=== PATIENT | female | born 1960 | race Caucasian/White ===

== ENCOUNTER → 2016-11-18 | Outpatient (CLI) | payer BC ==
[~2016-11-18] MED LIST: ALBU17IN INH; CYMB60CA3 PO; FISH1000 PO; HYDR25T PO; IBUPOTC PO; LAMI200T3 PO; LEVO50TA5 PO; LIPI20TA PO; MULT1TAB10 PO; NORCOTAB PO; SING10TA32 PO; TIOT18INH INH; VALI5TAB PO; VALS1TAB46 PO; VITA-130 PO; VITA200038 PO; advair INH; allegra OR; flonase; proventil inhaler INH
== END ==
LOC: M ONCR 13:06
PROVIDERS: ATTEND Radiology Radiation Oncology
DX: C34.02 Malignant neoplasm of left main bronchus (principal); C79.31 Secondary malignant neoplasm of brain

== ENCOUNTER → 2016-11-23 | Outpatient (CLI) | payer BC ==
[~2016-11-23] VITALS: Ht 172.7 cm; Wt 86.2 kg
[~2016-11-23] MED LIST changes: +LIDOCAINE 2% INJ 100 MG/5 ML SDV (FOR ANES.) As Ordered ONE; +NS 1,000 ML IV SCH; +PROPOFOL 200 MG/20 ML VIAL As Ordered ONE; +fentaNYL 100 MCG/2 ML INJECTION (J3010) As Ordered ONE
--- NOTE | 2016-11-23 13:54 | ROOR ---
Patient Name: Akila Zhao Procedure Date: 11/23/2016 1:33 PM Date of : 1960 Age: 56 Room: [facility] Gender: Female Note Status: Finalized Procedure: Upper GI endoscopy + Biopsies Indications: Abdominal pain in the left lower quadrant, Weight loss Providers: Esvin Laughlin MD Referring MD: SILVINO CARTER NP Requesting Provider: Medicines: Monitored Anesthesia Care Complications: No immediate complications. Procedure: Pre-Anesthesia Assessment: - The heart rate, respiratory rate, oxygen saturations, blood pressure, adequacy of pulmonary ventilation, and response to care were monitored throughout the procedure. The Endoscope was introduced through the mouth, and advanced to the second part of duodenum. The upper GI endoscopy was accomplished without difficulty. The patient tolerated the procedure well. Findings: The Z-line was regular and was found 40 cm from the incisors. Diffuse mild mucosal changes characterized by an increased vascular pattern were found in the middle third of the esophagus. Localized mild inflammation characterized by congestion (edema) and erosions was found in the gastric antrum. Biopsies were taken with a cold forceps for Helicobacter pylori testing. The exam of the duodenum was otherwise normal. Impression: - Z-line regular, 40 cm from the incisors. - Increased vascular pattern mucosa in the esophagus. - Acute gastritis. Biopsied. - The examination was otherwise normal. Recommendation: - Patient has a contact number available for emergencies. The signs and symptoms of potential delayed complications were discussed with the patient. Return to normal activities tomorrow. Written discharge instructions were provided to the patient. - High fiber diet. - Discharge patient to home. - Continue present medications. - Await pathology results. - Telephone GI clinic for pathology results in 1 week. - Return to referring physician. - The findings and recommendations were discussed with the patient's family. Esvin Laughlin MD Esvin Laughlin MD 11/23/2016 1:54:11 PM This report has been signed electronically. Number of Addenda: 0 Note Initiated On: 11/23/2016 1:33 PM Estimated Blood Loss: Estimated blood loss: none.
--- NOTE | 2016-11-23 14:11 | ROOR ---
Patient Name: Akila Zhao Procedure Date: 11/23/2016 1:34 PM Date of : 1960 Age: 56 Room: [facility] Gender: Female Note Status: Finalized Procedure: Colonoscopy to Cecum Indications: Abdominal pain in the left lower quadrant, Weight loss Providers: Esvin Laughlin MD Referring MD: SILVINO CARTER NP Requesting Provider: Medicines: Monitored Anesthesia Care Complications: No immediate complications. Procedure: Pre-Anesthesia Assessment: - The heart rate, respiratory rate, oxygen saturations, blood pressure, adequacy of pulmonary ventilation, and response to care were monitored throughout the procedure. The Colonoscope was introduced through the anus and advanced to the cecum, identified by appendiceal orifice and ileocecal valve. The colonoscopy was performed without difficulty. The patient tolerated the procedure well. The quality of the bowel preparation was good. Findings: The perianal and digital rectal examinations were normal. Non-bleeding internal hemorrhoids were found during retroflexion. The hemorrhoids were small and Grade I (internal hemorrhoids that do not prolapse). No other significant abnormalities were identified in a careful examination of the remainder of the colon. The exam was otherwise without abnormality on direct and retroflexion views. Impression: - Non-bleeding internal hemorrhoids. - The examination was otherwise normal on direct and retroflexion views. - No specimens collected. - The exam was otherwise normal to the cecum. Recommendation: - Patient has a contact number available for emergencies. The signs and symptoms of potential delayed complications were discussed with the patient. Return to normal activities tomorrow. Written discharge instructions were provided to the patient. - High fiber diet. - Discharge patient to home. - Continue present medications. - Repeat colonoscopy in 10 years for screening purposes. - Return to referring physician. - The findings and recommendations were discussed with the patient's family. Esvin Laughlin MD Esvin Laguhlin MD 11/23/2016 2:11:48 PM This report has been signed electronically. Number of Addenda: 0 Note Initiated On: 11/23/2016 1:34 PM Estimated Blood Loss: Estimated blood loss: none.
[2016-11-23 14:40] VITALS: BP 148/81
== END | disposition home or self-care (01) ==
LOC: M OPP 12:52
PROVIDERS: ATTEND Internal Medicine Gastroenterology
DX: R63.4 Abnormal weight loss (principal); R10.32 Left lower quadrant pain; K64.0 First degree hemorrhoids; K29.00 Acute gastritis without bleeding; K22.8 Other specified diseases of esophagus; I10 Essential (primary) hypertension; E07.9 Disorder of thyroid, unspecified; J45.909 Unspecified asthma, uncomplicated; E78.00 Pure hypercholesterolemia, unspecified; R06.83 Snoring; F33.9 Major depressive disorder, recurrent, unspecified; F41.9 Anxiety disorder, unspecified; G47.30 Sleep apnea, unspecified; Z87.891 Personal history of nicotine dependence; Z79.899 Other long term (current) drug therapy; Z79.51 Long term (current) use of inhaled steroids; Z88.2 Allergy status to sulfonamides
CPT/HCPCS: 43239; 45378; 88305; J3010

== ENCOUNTER → 2016-12-12 | Outpatient (CLI) | payer BC ==
[~2016-12-12] MED LIST changes: -LIDOCAINE 2% INJ 100 MG/5 ML SDV (FOR ANES.) As Ordered ONE; -NS 1,000 ML IV SCH; -PROPOFOL 200 MG/20 ML VIAL As Ordered ONE; -fentaNYL 100 MCG/2 ML INJECTION (J3010) As Ordered ONE
--- NOTE | 2016-12-16 14:22 | SLEEPCENT ---
DATE OF PROCEDURE: 12/12/2016 ORDERED BY: Dr. Traylor Nocturnal polysomnography was performed for the titration of pressure therapy in this patient with obstructive sleep apnea syndrome confirmed by home testing revealing a respiratory event index of 22. For testing, the patient was fit with a ResMed Quattro full face mask of medium size and 8 cm of water pressure were applied to the circuit and the lights were extinguished. 8 hours and 29 minutes of data were reviewed. There were 392 minutes of sleep identified. Sleep latency was prolonged at 53 minutes. Rapid eye movement (REM) latency was normal at 90 minutes. Sleep architecture showed REM rebound. Some fragmentation persisted. Overall sleep efficiency was 77.8%. The patient's electrocardiogram (EKG) showed a sinus rhythm with an average heart rate of 74 beats per minute. Electroencephalogram (EEG) showed reasonably normal waveforms for awake and sleep. Respiratory events were fully palliated and best sleep seen at a CPAP pressure of +10. CPAP tolerance was reasonably good. Significant limb activity was noted. There were at least 3 trains of 30 events and limb movement arousal index was 13.5. IMPRESSION: 1. Obstructive sleep apnea syndrome (G47.33). 2. Periodic limb movement disorder (G47.61), limb movement arousal index of 13.5. RECOMMENDATION: Nightly use of pressure therapy at 10 cm of water should be sufficient to address the patient's respiratory events. Interventions to reduce the frequency of arousals from limb activity should further improve the quality of sleep.
== END ==
LOC: M SLEEP 20:30
PROVIDERS: ATTEND Internal Medicine Pulmonary Disease
DX: G47.33 Obstructive sleep apnea (adult) (pediatric) (principal); G47.61 Periodic limb movement disorder

== ENCOUNTER → 2017-03-26 | Outpatient (CLI) | payer BC ==
[~2017-03-26] MED LIST changes: +ALB2.5NEB INH; +ASPI1TAB PO; +ATOR1TAB19 PO; +DOXY100T PO
--- NOTE | 2017-03-26 14:52 | REP ---
Clinical: Acute bronchitis. Technique: PA and lateral. Comparison: 01/20/2016. Findings: Ill-defined mass-like density in the left hilar and suprahilar region with underlying air bronchograms is similar to prior examination. Postsurgical changes involving the left hemithorax appear relatively stable. [id number] identified with tip in the SVC. Right hemithorax demonstrates a relatively new area of opacification involving the right middle lobe and right lower lobe concerning for superimposed acute infiltrate with small pleural reaction. There is no evidence for pneumothorax. Musculoskeletal structures are stable. Impression: 1. Relatively chronic-appearing changes to the left hemithorax. 2. New area of a infiltrate involving the right middle lobe and right lower lobe with small associated pleural reaction. Signed by Gutierrez Jenkins MD 03/26/2017 02:43 P
== END ==
LOC: M ADAMS 14:18
PROVIDERS: ATTEND Physician Assistant Medical
DX: J20.9 Acute bronchitis, unspecified (principal)

== ENCOUNTER 2017-04-02 09:36 | Inpatient (IN) | payer BC ==
[2017-04-02] VITALS (20 sets, daily range): BP systolic 106–148; BP diastolic 36–100
[~2017-04-02] VITALS: Ht 172.7 cm; Wt 102.3 kg
[~2017-04-02 09:36] MED LIST changes: -ALB2.5NEB INH; -ASPI1TAB PO; -ATOR1TAB19 PO; -DOXY100T PO; +PANTOPRAZOLE 40MG TAB (PROTONIX) PO SCH
[2017-04-02] MEDS ORDERED: ASPI1TAB PO (09:48)
[2017-04-02] MEDS ORDERED: methylPREDNISolone INJ 125 MG/2 ML VIAL (J2930) IV ONE (10:15)
[2017-04-02] MEDS ORDERED: IPRATROPIUM 0.5MG/ALBUTEROL 2.5MG INH SOL UD 3ML (DUONEB)(J7620) NEB ONE (10:15)
[2017-04-02 10:45] LABS: BASO % 0.6 % (0.0-1.0); EOS # 0.2 K/mm3 (0.0-0.50); EOS % 2.8 % (0.0-3.0); LARGE UNSTAINED CELL # 0.2 K/mm3 (0.0-0.4); LARGE UNSTAINED CELL % 2.9 % (0.0-4.0); LYMPH # 1.2 K/mm3 (1.5-4.5); LYMPH % 11.6 % (24.0-44.0); MEAN CORPUSCULAR HEMOGLOBIN 33.1 pg (27.0-33.0); MEAN CORPUSCULAR HGB CONC 33.5 g/dl (32.0-36.5); MEAN CORPUSCULAR VOLUME 98.7 fl (80.0-96.0); MONO # 0.4 K/mm3 (0.0-0.8); MONO % 5.1 % (0.0-5.0); NEUTROPHILS # 6.2 K/mm3 (1.8-7.7); PLATELET COUNT, AUTOMATED 619 k/mm3 (150-450); WHITE BLOOD COUNT 8.1 K/mm3 (4.0-10.0)
[2017-04-02 11:10] LABS: ANION GAP 7 MEQ/L (8-16); BLOOD UREA NITROGEN 13 MG/DL (7-18); CALCIUM LEVEL 9.6 MG/DL (8.5-10.1); CARBON DIOXIDE LEVEL 29 MEQ/L (21-32); CHLORIDE LEVEL 104 MEQ/L (98-107); CREATININE FOR GFR 0.71 MG/DL (0.55-1.02); GLOMERULAR FILTRATION RATE > 60.0 (>51); GLUCOSE, FASTING 111 MG/DL (70-105); POTASSIUM SERUM 4.1 MEQ/L (3.5-5.1); SODIUM LEVEL 140 MEQ/L (136-145)
[2017-04-02] MEDS ORDERED: ISOVUE-370 76% 100ML VIAL (Q9967) As Ordered ONE (11:14)
--- NOTE | 2017-04-02 11:29 | REP ---
CHEST, TWO VIEWS: Two views of the chest are performed and compared to prior studies, most recently 03/26/2017. There is a new large right pneumothorax with partial collapse of the right lung. There is a small right effusion. There volume loss of the left lung with stable left perihilar opacities. The cardiomediastinal silhouette is unchanged. There is a left MediPort catheter with the tip in the superior vena cava. IMPRESSION: Large right pneumothorax. Signed by Arnold Mcguire MD 04/02/2017 01:40 P
[2017-04-02] MEDS ORDERED: ACETAMINOPHEN TAB 650MG DOSE (2X325MG) PO PRN (11:45)
[2017-04-02] MEDS ORDERED: PERCOCET 5MG/325MG TAB PO PRN ×2 (11:45)
[2017-04-02] MEDS ORDERED: LEVALBUTEROL 1.25 MG/0.5 ML CONCENTRATE NEB NEB PRN (11:45)
[2017-04-02] MEDS ORDERED: BISACODYL 10 MG SUPP PR PRN (11:45)
[2017-04-02] MEDS ORDERED: ONDANSETRON 4MG/2ML VIAL (J2405) IV PRN (11:45)
[2017-04-02] MEDS ORDERED: NORCO, ANEXSIA 5/325MG TABLET (HYDROcodone/ACETAMINOPHEN) PO PRN (11:45)
[2017-04-02] MEDS ORDERED: LIDOCAINE 1% MDV 20ML VIAL As Ordered ONE (11:56)
[2017-04-02] MEDS ORDERED: MIDAZOLAM INJ 2 MG/2 ML VIAL (J2250) As Ordered ONE ×2 (11:57→11:58)
[2017-04-02] MEDS ORDERED: FLUMAZENIL 0.5 MG/5 ML VIAL As Ordered ONE (11:57)
[2017-04-02] MEDS ORDERED: KCL 20MEQ IN D5/NS 1000ML 1,000 ML IV SCH ×2 (12:00→12:30)
[2017-04-02] MEDS ORDERED: MIDAZOLAM INJ 2 MG/2 ML VIAL (J2250) IV ONE ×2 (12:05→12:08)
--- NOTE | 2017-04-02 12:10 | REP ---
REASON: Dyspnea COMPARISON: Standard chest CT of 09/16/2016. There is a huge right-sided pneumothorax, which is under some tension and the trachea is seen shifted to the contralateral side when compared to the prior exam. There is good visualization of the pulmonary arterial vasculature and there are no focal filling defects present that would be considered consistent with pulmonary emboli. There is a minimal left pleural effusion, which does not appear to be significantly changed from the prior exam. There is no evidence of a pericardial effusion. The imaged upper abdomen and imaged osseous structures are unchanged. Evaluation of the lung david show compressive atelectatic changes in the right lung. There is a potential spiculated mass in the right apical region. This represents a change in the prior exam. Certainly, this is either accentuated by or caused by the compressive atelectatic change. Chronic left upper lobe changes are again seen with air bronchograms and a large opacity, status quo. IMPRESSION: 1. There is a large right-sided pneumothorax, which is under some tension as described above. A phone call was placed to Dr. Rafa De Leon and these findings were discussed. 2. Right lung changes as described above. This needs to be followed up once the lung has been re-expanded. 3. Chronic lung field changes as described above. 4. Other findings as described above. Signed by Luis Kan DO 04/02/2017 03:22 P
[2017-04-02] MEDS ORDERED: ATOR1TAB19 PO (12:34)
[2017-04-02] MEDS ORDERED: DOXY100T PO (12:34)
[2017-04-02] MEDS ORDERED: ALB2.5NEB INH (12:35)
[2017-04-02 13:07] LABS: ABG HCO3 21.8 MEQ/L (22.0-26.0); ABG PARTIAL PRESSURE CO2 31.5 mmHg (35.0-45.0); ABG PARTIAL PRESSURE O2 88.2 mmHg (75.0-100.0); ABG STANDARD HCO3 23.6 MEQ/L (22.0-26.0); ABG TOTAL CO2 22.8 MEQ/L (22.0-29.0); ABG pH (ARTERIAL) 7.459 UNITS (7.350-7.450)
[2017-04-02] MEDS: PANTOPRAZOLE 40MG INJ (PROTONIX) (C9113) IV SCH (13:30)
[2017-04-02] MEDS: KETOROLAC 30 MG/ML VIAL (J1885) IV SCH ×3 (13:30→23:37)
[2017-04-02] MEDS: MOM 30ML SUSPENSION UDC PO SCH (13:32)
--- NOTE | 2017-04-02 13:52 | REP ---
Status post chest tube placement. Comparison to earlier today. The right sided pneumothorax has been reduced by placement of a thoracotomy tube. Signed by Luis Kan DO 04/02/2017 03:23 P
[2017-04-02] MEDS: HEPARIN SOD (PORCINE) 5000 UNITS/ML VIAL SC SCH ×2 (14:15→21:35)
--- NOTE | 2017-04-02 19:11 | HPE ---
DATE OF ADMISSION: 04/02/2017 The patient is seen at the urgent request of the emergency room, Dr. De Leon for a pneumothorax. 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 She has undergone chemotherapy and had a port placed for the chemotherapy on the left side. She has completed the chemotherapy and was doing fairly well until last week when she felt a bit short of breath and sought attention at a local Urgent Care. The Urgent Care prescribed antibiotics and took a chest x-ray and saw an infiltrate. This morning she woke and she was very short of breath, to such an extent that became very scared. She therefore sought medical attention. She has had a cough with some yellow-green sputum production over the last week. There has been no fever, chills or sweats. She has lost weight from her chemotherapy. There has been no dysphagia. Prior to this morning, she did not have any chest pain. She just complains of a pressure type chest pain over her right chest. She went to the emergency room and a chest x-ray was undertaken where she was found to have a pneumothorax. She also underwent a CT scan looking for a pulmonary embolism. No pulmonary embolism was found. PAST MEDICAL HISTORY: Small cell carcinoma. Chronic obstructive pulmonary disease (COPD). Sleep apnea. Prior hyperthyroidism, no longer treated. Depression. Anxiety. Hyperlipidemia. PAST SURGICAL HISTORY: Thoracotomy for diagnosis of a hilar lymph node in 2014. Previous hysterectomy. MEDICATIONS AT HOME: - Cymbalta 60 mg every day - hydroxyzine 25 mg as needed itching - Lamictal 200 mg every day - atorvastatin 5 mg every day - Singulair 10 mg at bedtime - Spiriva 1 puff every day - diazepam 5 mg as needed anxiety - Ventolin 2 puffs every 4 hours as needed shortness of breath - vitamin D 2000 units every day - multivitamin every day - ascorbic acid 500 mg every day - aspirin 81 mg every day HABITS: Used to be a smoker, but quit in aug 2014. Does not drink. There is no illicit drugs. 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 There is no asbestos exposure. TRAVEL HISTORY: She has traveled to [place], to [place]. EXPOSURES: No dogs, cats or birds at home and no prior exposure to tuberculosis. FAMILY HISTORY: Not relevant to the acute situation. REVIEW OF SYSTEMS: Constitutional: See HPI. Eyes: Without diplopia, without prior jaundice, without amaurosis fugax. Nose: Without epistaxis. Mouth: Has her own teeth. Pulmonary: See HPI. Cardiac: Without prior history of myocardial infarctions. She had evidently abnormal EKG. She is followed by cardiology probably for her hyperlipidemia. No intermittent claudication. No anginal type chest pain. Gastrointestinal (GI): Has occasional nausea, no vomiting. No diarrhea, constipation, melena or hematochezia, abdominal pain or hematemesis. Genitourinary (): Without dysuria, hematuria or prior history of renal stones. Endocrine: Had prior hyperthyroidism, but the treatment was stopped during and after chemotherapy. No diabetes. Neurologic: Without paresthesias, paralysis or transient monocular blindness. Without prior seizures. Psychiatric: Has depression and anxiety. Without psychoses. Lymphatics: Without lumps, bumps in the neck, axilla or groin. Hematologic: Without prolonged bleeding times. PHYSICAL EXAMINATION: Well-developed, well-nourished white female in acute distress with shortness of breath. Vital signs: Temperature is 97.8, with a pulse of 98 in a sinus rhythm. Respiratory rate of 22 without the use of accessory muscles who is 90% saturated on 2 liters nasal cannula. She was in the low 80s upon presentation to the emergency room prior to oxygen therapy. Eyes: Pupils equal, round and reactive to light. Extraocular muscles intact. Sclera anicteric. Nose: Without deformity. Mouth: Shows her mucous membranes to be pink and moist. Lips and commissures are without lesions. There is no thrush. Teeth are in good repair. Neck is supple. There is no jugular venous distention, no subcutaneous emphysema. Trachea is midline. There is no thyromegaly, no lymphadenopathy. Lungs: Show decreased breath sounds on the right side. Percussion note is full to the diaphragm on either side. Cardiac examination: Without murmurs, clicks, gallops or rubs. I cannot feel her point of maximal impulse (PMI), S1 and S2 are normal. Abdomen: Soft and nontender. Bowel sounds are positive. There is no hepatomegaly. There is no costovertebral angle (CVA) tenderness. Extremities: Show no pretibial edema, no calf tenderness. No differential swelling of the upper extremities. Skin: Warm and dry, and perfused. Neuro: Shows II-XII intact. Gross motor and gross sensation intact. Gait is not tested. Psychiatric: Shows her to be awake, alert and oriented times three, with appropriate mood, affect, and conversational. Her white count is 8.1 with hemoglobin and hematocrit of 13.9 and 41.3, and a platelet count of 619. Differential shows 77% neutrophils, 11% lymphocytes, 5% monocytes. There are no immature forms or toxic granulations. Her electrolytes are normal with a BUN and creatinine of 13 and 0.71. Glucose of 111, calcium 9.6. Troponins less than 0.02 and her BNP is 118. Her chest x-ray shows a 50 to 60% pneumothorax on the right side. She has what looks to be an infiltrative pattern, most likely secondary to radiation in the left hilum. There is a midline shift to the left side. She is, however, rotated with unequal projection of her clavicles. There may be a mall air fluid level in the right costophrenic angle. The chest CT done for a pulmonary embolism does not show a pulmonary embolism. It confirms the pneumothorax. She has major emphysematous changes throughout both lungs. The left hilum looks to have a consolidation secondary to radiation changes. I do not see any other evidence of a pneumonia. Great vessels are intact and there is no pericardial effusion. She does have compression of the right middle lobe, probably secondary to the pneumothorax. She looks to have a left adrenal mass and also a right adrenal mass. It is unchanged from 09/[address] The liver is intact as is her spleen. IMPRESSION: 1. Acute pneumothorax right side. 2. COPD. 3. History of small cell carcinoma, treated with chemotherapy. 4. Bilateral adrenal masses and/or hypoplasia. 5. Sleep apnea. 6. Depression. 7. Hyperlipidemia. PLAN AND DISCUSSION: I will immediately place a chest tube to relieve her of her pneumothorax, and shortness of breath. I will monitor the chest tube to see if she has an air leak. Hopefully this is a one time event and will be able to remove the chest tube in the next one or two days. I will not continue to treat her for pneumonia as I do not think that she has got one.
[2017-04-02] MEDS: LEVALBUTEROL 1.25 MG/0.5 ML CONCENTRATE NEB NEB SCH (20:38)
[2017-04-02] MEDS: DOCUSATE SODIUM 100 MG CAP PO SCH (21:00)
[2017-04-02] MEDS: ATORVASTATIN 5MG PER 1/2 TABLET PO SCH (21:36)
[2017-04-02] MEDS: MONTELUKAST 10 MG TAB PO SCH (21:36)
[2017-04-02] MEDS: VITAMIN D 1,000 INTERNATIONAL UNITS TABLET PO SCH (21:36)
[2017-04-02] MEDS: lamoTRIgine 100MG TAB PO SCH (22:33)
[2017-04-03] MEDS: LEVALBUTEROL 1.25 MG/0.5 ML CONCENTRATE NEB NEB SCH ×4 (02:00→20:01)
[2017-04-03 04:00] VITALS: BP 111/66
[2017-04-03 05:41] LABS: BASO % 0.1 % (0.0-1.0); EOS % 0.3 % (0.0-3.0); LARGE UNSTAINED CELL # 0.2 K/mm3 (0.0-0.4); LARGE UNSTAINED CELL % 1.6 % (0.0-4.0); LYMPH # 1.2 K/mm3 (1.5-4.5); LYMPH % 7.5 % (24.0-44.0); MEAN CORPUSCULAR HEMOGLOBIN 32.2 pg (27.0-33.0); MEAN CORPUSCULAR HGB CONC 32.1 g/dl (32.0-36.5); MEAN CORPUSCULAR VOLUME 100.3 fl (80.0-96.0); MONO # 0.6 K/mm3 (0.0-0.8); MONO % 4.3 % (0.0-5.0); NEUTROPHILS # 11.6 K/mm3 (1.8-7.7); NEUTROPHILS % 86.2 % (36.0-66.0); PLATELET COUNT, AUTOMATED 608 k/mm3 (150-450); RED CELL DISTRIBUTION WIDTH 13.1 % (11.5-14.5); WHITE BLOOD COUNT 13.4 K/mm3 (4.0-10.0)
[2017-04-03 05:50] LABS: ABG BASE EXCESS 0.8 (-2.0-2.0); ABG HCO3 24.4 MEQ/L (22.0-26.0); ABG PARTIAL PRESSURE CO2 35.8 mmHg (35.0-45.0); ABG PARTIAL PRESSURE O2 78.8 mmHg (75.0-100.0); ABG STANDARD HCO3 25.1 MEQ/L (22.0-26.0); ABG TOTAL CO2 25.5 MEQ/L (22.0-29.0); ABG pH (ARTERIAL) 7.451 UNITS (7.350-7.450)
[2017-04-03 06:02] LABS: ANION GAP 7 MEQ/L (8-16); BLOOD UREA NITROGEN 18 MG/DL (7-18); CALCIUM LEVEL 8.9 MG/DL (8.5-10.1); CARBON DIOXIDE LEVEL 28 MEQ/L (21-32); CHLORIDE LEVEL 105 MEQ/L (98-107); CREATININE FOR GFR 0.73 MG/DL (0.55-1.02); GLOMERULAR FILTRATION RATE > 60.0 (>51); GLUCOSE, FASTING 103 MG/DL (70-105); POTASSIUM SERUM 4.1 MEQ/L (3.5-5.1); SODIUM LEVEL 140 MEQ/L (136-145)
[2017-04-03] MEDS: KETOROLAC 30 MG/ML VIAL (J1885) IV SCH ×4 (06:04→23:46)
--- NOTE | 2017-04-03 07:24 | ECGEPIP ---
Stationary ECG Study [facility] - ED Test Date: 2017-04-02 Pat Name: DIONE ARELLANO Department: Room: - Gender: F Cushion Stuffer: milagro : 1960 Requested By: ANJANA Gardner Order Number: [id number] Reading MD: Tiera Urias Measurements Intervals [place] Rate: 99 P: 91 MI: 188 QRS: 88 QRSD: 90 T: 91 QT: 346 QTc: 444 Interpretive Statements SINUS RHYTHM NSTTW ABNORMALITY INCREASED RATE 10/12/15 Electronically Signed On 04-03-2017 7:24:41 EDT by Tiera Urias
[2017-04-03 08:00] VITALS: BP 122/66
--- NOTE | 2017-04-03 08:32 | REP ---
PA and lateral chest: Comparisons are 04/02/2017 and 01/20/2016. The chest CT dated 04/02/2017. The right thoracotomy tube is unchanged from 04/02/2017. There is a small pneumothorax superolaterally in the right hemithorax. Immediately adjacent to this pneumothorax is a small focal parenchymal density, possibly atelectasis. The remainder of the right lung is clear. Left lung is clear except for a focal left paramediastinal parenchymal density which has been described as postradiation change on prior studies. A MediPort catheter is again noted entering from left with the tip in the right atrium in satisfactory location. Cardiac size is normal. Signed by Arnold Houser MD 04/03/2017 08:24 A
[2017-04-03] MEDS: MOM 30ML SUSPENSION UDC PO SCH (09:00)
[2017-04-03] MEDS: DOCUSATE SODIUM 100 MG CAP PO SCH ×2 (09:00→20:04)
[2017-04-03] MEDS: ASPIRIN 81 MG ENTERIC TAB PO SCH (09:35)
[2017-04-03] MEDS: MULTIVITAMINS/MINERALS THERAP 1 TAB PO SCH (09:35)
[2017-04-03] MEDS: ASCORBIC ACID 500 MG TAB PO SCH (09:35)
[2017-04-03] MEDS: DULoxetine 30 MG CAP (CYMBALTA) PO SCH (09:35)
--- NOTE | 2017-04-03 09:35 | REP ---
Follow-up CT of the chest without IV contrast: Comparison is a 04/02/2017. There is a thoracotomy tube in the apex of the right hemithorax as an interval change. The pneumothorax has significantly decreased, although a small persisting pneumothorax is present. There is a focal parenchymal density laterally in the apex of the right lung, nonspecific, follow-up is recommended. . There is focal atelectasis in the right middle lobe anteriorly. This is unchanged. There is a focal large density superomedially in the left upper lobe extending to the left hilus, unchanged. This is also unchanged from the prior study of 09/16/2016. This could represent chronic atelectasis, infiltrate, postradiation change, or neoplasm. No mediastinal adenopathy is identified. The study is insensitive for hilar adenopathy in the absence of IV contrast. The upper abdomen is not included on the current study. Impression: There is a right thoracotomy tube. The right pneumothorax has significantly decreased in size. There is a focal density in the right upper lobe, nonspecific, atelectasis versus scarring versus neoplasm. There is atelectasis in the right middle lobe adjacent to the pneumothorax. Follow-up to resolution is recommended. Large left upper lobe density as described, unchanged from the prior study. Signed by Arnold Houser MD 04/03/2017 09:26 A
[2017-04-03] MEDS: PANTOPRAZOLE 40MG INJ (PROTONIX) (C9113) IV SCH (09:36)
[2017-04-03] MEDS: HEPARIN SOD (PORCINE) 5000 UNITS/ML VIAL SC SCH ×2 (09:36→20:05)
[2017-04-03 12:00] VITALS: BP 120/50
--- NOTE | 2017-04-03 12:59 | IPN ---
DATE: 04/03/2017 Ms. Zhao has now developed a substantial air leak from her chest tube after relieving her pneumothorax yesterday. Her pain is being well controlled at the chest tube insertion site. She is breathing well and she is taking deep breaths without difficulty. She no longer has air hunger. Her vital signs show a maximum temperature (t-max) of 97.7 with a heart rate that ranges between 63 and 94 in a sinus rhythm, respiratory rate of 18 to 20 without the use of accessory muscles, who is 93 to 94% saturated on 2 liters nasal cannula, and whose blood pressure is ranging between 111/66 to 134/66. Her intake and output over the past 24 hours has been recorded as 2355 in and 660 out for a positivity of 1695 mL. So far today however, she is negative 780 mL. She has put 10 mL out of the chest tube. There is the above air leak. Weight today is 87 kg compared to 86.2 kg yesterday. PHYSICAL EXAMINATION: LUNGS: Her lungs show normal vesicular sounds on either side without wheezes, rhonchi or rales. Breath sounds are equal on either side. Percussion note is full to the diaphragm. CARDIAC EXAM: Without murmurs, clicks, gallops or rubs. She is in a sinus rhythm. I cannot feel her point of maximum impulse (PMI). S1, S2 are normal. ABDOMEN: Soft, nontender. Bowel sounds positive. There is no hepatomegaly. No costovertebral angle tenderness. EXTREMITIES: Show no pretibial edema. No calf tenderness. No differential swelling of the upper extremities. SKIN: Warm, dry and perfused without cyanosis or mottling, including that of the nail beds and knees. NECK: Supple. There is no jugular venous distention. No subcutaneous emphysema. Trachea is midline. MOUTH: Shows her mucous membranes to be pink and moist. Lips and commissures without lesions. There is no thrush. EYES: Show her pupils to be equal and reactive. Extraocular muscles intact. Sclerae anicteric. NEUROLOGIC: Shows II through XII intact with gross motor and gross sensation intact. Gait is not tested. PSYCHIATRIC: Shows her to be awake and alert, oriented times three with appropriate mood and affect and conversational. Her white count today is 13.4 with a hemoglobin and hematocrit of 12.4 and 38.7, respectively. Differential shows 86% neutrophils, 7% lymphocytes, 4% monocytes. There are no immature forms. No toxic granulations. Platelet count is 608. Her electrolytes are normal today with a BUN and creatinine of 18 and 0.73, calcium 8.9 and glucose of 103. Her blood gases today show a pH of 7.45, PCO2 of 35 and PO2 of 78 on 2 liters nasal cannula with a base excess of 0.8. Her chest x-ray shows her lung fully expanded to the chest wall. Costophrenic angles are sharp. There is no subcutaneous emphysema. The chest tube is in good place. The possible infiltrative process in the right lower lobe is clearing and I think that this was secondary to compression from her pneumothorax. I see no other infiltrates on the lateral film other than the radiation changes. IMPRESSION: 1. Acute pneumothorax on right side, resolved with a chest tube. 2. Chronic obstructive pulmonary disease (COPD). 3. History of small cell carcinoma, treated with chemotherapy. 4. Bilateral adrenal masses and/or hyperplasia. 5. Sleep apnea. 6. Depression. 7. Hyperlipidemia. PLAN AND DISCUSSION: She now has a fairly substantial air leak. I suspect that she has ruptured one of the blebs and/or bullae in her right lung. I am not sure if she is going to be able to seal those, but we will certainly give her three to five days to do so. If after that time we will have to consider going to the operating room. There is a national shortage of talc and there is no talc aerosol. That does present a problem. We have one talc slurry in the hospital. Review of her CT scan done on 04/02/2017 shows multiple emphysematous disease. I do see one possible area where she could have a ruptured bleb. Now that her lung is expanded, I will repeat the CT scan.
[2017-04-03] MEDS: TIOTROPIUM INHALER/CAPSULE (SPIRIVA) INH SCH (13:48)
--- NOTE | 2017-04-03 14:15 | RO ---
DATE OF PROCEDURE: 04/02/2017 PREPROCEDURE DIAGNOSIS: Right pneumothorax. POSTPROCEDURE DIAGNOSIS: Right pneumothorax. PROCEDURE: Insertion of right anterior chest tube. SURGEON: Regino Quispe MD FLAKE MILLER HELPER: ANESTHESIA: DESCRIPTION OF PROCEDURE: Under satisfactory moderate sedation achieved with 3 mg of Versed, patient was prepped and draped in the usual sterile fashion. Incision was made over second rib and a tunnel was created in the first intercostal space. A #20 chest tube was placed without difficulty and secured to the chest wall with #2 Tevdek suture. The chest tube was connected to a Pleur-evac. Patient tolerated the procedure well, and a chest x-ray is pending.
[2017-04-03 16:00] VITALS: BP 116/55
[2017-04-03 19:54] VITALS: BP 112/67
[2017-04-03] MEDS: lamoTRIgine 100MG TAB PO SCH (20:04)
[2017-04-03] MEDS: MONTELUKAST 10 MG TAB PO SCH (20:04)
[2017-04-03] MEDS: VITAMIN D 1,000 INTERNATIONAL UNITS TABLET PO SCH (20:04)
[2017-04-03] MEDS: ATORVASTATIN 5MG PER 1/2 TABLET PO SCH (20:04)
[2017-04-03 23:57] VITALS: BP 106/59
[2017-04-04] MEDS: LEVALBUTEROL 1.25 MG/0.5 ML CONCENTRATE NEB NEB SCH ×4 (01:00→19:30)
[2017-04-04 04:00] VITALS: BP 127/71
[2017-04-04 05:29] LABS: BASO # 0.1 K/mm3 (0.0-0.2); BASO % 0.6 % (0.0-1.0); EOS # 0.4 K/mm3 (0.0-0.50); EOS % 4.2 % (0.0-3.0); LARGE UNSTAINED CELL # 0.3 K/mm3 (0.0-0.4); LARGE UNSTAINED CELL % 3.1 % (0.0-4.0); LYMPH # 1.4 K/mm3 (1.5-4.5); LYMPH % 11.1 % (24.0-44.0); MEAN CORPUSCULAR HEMOGLOBIN 33.4 pg (27.0-33.0); MEAN CORPUSCULAR HGB CONC 33.1 g/dl (32.0-36.5); MEAN CORPUSCULAR VOLUME 100.9 fl (80.0-96.0); MONO # 0.5 K/mm3 (0.0-0.8); NEUTROPHILS # 7.6 K/mm3 (1.8-7.7); PLATELET COUNT, AUTOMATED 563 k/mm3 (150-450); RED CELL DISTRIBUTION WIDTH 13.2 % (11.5-14.5)
[2017-04-04 05:37] LABS: ANION GAP 7 MEQ/L (8-16); BLOOD UREA NITROGEN 19 MG/DL (7-18); CALCIUM LEVEL 8.7 MG/DL (8.5-10.1); CARBON DIOXIDE LEVEL 29 MEQ/L (21-32); CHLORIDE LEVEL 107 MEQ/L (98-107); CREATININE FOR GFR 0.77 MG/DL (0.55-1.02); GLOMERULAR FILTRATION RATE > 60.0 (>51); GLUCOSE, FASTING 88 MG/DL (70-105); SODIUM LEVEL 143 MEQ/L (136-145)
[2017-04-04] MEDS: KETOROLAC 30 MG/ML VIAL (J1885) IV SCH ×4 (06:30→23:34)
[2017-04-04 07:15] VITALS: BP 122/61
[2017-04-04] MEDS: ASCORBIC ACID 500 MG TAB PO SCH (08:54)
[2017-04-04] MEDS: ASPIRIN 81 MG ENTERIC TAB PO SCH (08:54)
[2017-04-04] MEDS: DULoxetine 30 MG CAP (CYMBALTA) PO SCH (08:54)
[2017-04-04] MEDS: MULTIVITAMINS/MINERALS THERAP 1 TAB PO SCH (08:54)
[2017-04-04] MEDS: DOCUSATE SODIUM 100 MG CAP PO SCH ×2 (08:54→20:32)
[2017-04-04] MEDS: HEPARIN SOD (PORCINE) 5000 UNITS/ML VIAL SC SCH ×2 (08:54→20:32)
[2017-04-04] MEDS: MOM 30ML SUSPENSION UDC PO SCH (08:54)
[2017-04-04] MEDS: PANTOPRAZOLE 40MG INJ (PROTONIX) (C9113) IV SCH (08:54)
--- NOTE | 2017-04-04 09:03 | REP ---
Chest PA and lateral views: There is a 04/03/2007. The right thoracotomy tube is unchanged. Small focal pneumothorax is again noted superolaterally in the right upper lobe with adjacent focal density in the right upper lobe parenchyma. These findings are unchanged. There is effacement right costophrenic angle. This is also unchanged. Also I suspect a pneumothorax inferolaterally on the right just above the right costophrenic angle, not definitely present on the prior study. There is a focal density medially in the left upper lobe. This is unchanged. MediPort catheter is again identified with the tip in the superior vena cava, unchanged. Left lung is otherwise clear. Signed by Arnold Houser MD 04/04/2017 08:55 A
[2017-04-04] MEDS ORDERED: LIDOCAINE 1% MDV 20ML VIAL As Ordered ONE (11:05)
[2017-04-04] MEDS: TIOTROPIUM INHALER/CAPSULE (SPIRIVA) INH SCH (11:22)
[2017-04-04 11:35] VITALS: BP 119/63
--- NOTE | 2017-04-04 13:06 | IPN ---
DATE: 04/04/2017 Ms. Zhao still has the rolling air leak. She is not complaining of shortness of breath and her pain at the chest tube insertion site is well controlled with oral analgesics. Her vital signs show a maximum temperature (Tmax) of 98.1 with a heart rate that ranges between 68-94 in a sinus rhythm, respiratory rate of 18-20 without the use of accessory muscles, who is 93-94% saturated on room air and show whose blood pressure is ranging between 106/59 to 122/61. Intake and output over the past 24 hours has been recorded as 2100 in and 2120 out for near equality. She has put 20 mL out of the chest tube. Weight today is 87.9 kg compared to 87 kg yesterday. On physical examination, her lungs show equal breath sounds on either side. Percussion note is full to the diaphragm. There is no subcutaneous emphysema over the chest wall. Cardiac exam is without murmurs, clicks, gallops or rubs. I cannot feel her point of maximum impulse (PMI). S1, S2 are normal. Abdomen is soft, nontender. Bowel sounds positive. There is no hepatomegaly, no costovertebral angle tenderness. Extremities show no pretibial edema, no calf tenderness. No differential swelling of the upper extremities. Skin is warm, dry and perfused without cyanosis or mottling, including that of the nail beds and knees. Neck is supple. There is no jugular venous distention, no subcutaneous emphysema. Trachea is midline. Mouth shows her mucous membranes to be pink and moist. Lips and commissures without lesions. There is no thrush. Eyes show her pupils to be equal and reactive. Extraocular muscles intact. Sclerae anicteric. Neuro shows II-XII intact along with gross motor and gross sensation intact. Gait is not tested. Psychiatric shows her to be awake and alert, oriented times three with appropriate mood and affect and conversational. Her chest x-ray today shows the lung from the chest wall inferiorly. Chest tube is in good place. I also see a clear space at the cupula. I do not see the chest tube well, but it is posterior on the lateral film. Her chest CT yesterday shows considerable air anteriorly. The chest tube is heading more posteriorly and superiorly. I do see emphysematous bleb, which may be the offender on the medial superior lung. IMPRESSION: 1. Spontaneous pneumothorax. 2. Severe chronic obstructive pulmonary disease (COPD). 3. Small cell carcinoma status post chemotherapy. 4. Bilateral adrenal masses and/or hyperplasia. 5. Sleep apnea. 6. Depression. 7. Hyperlipidemia. PLAN AND DISCUSSION: I have had a long discussion with Mrs. Zhao with her sister listening on the speaker phone. I am still trying to keep her out of the operating room. I am therefore going to reposition the chest tube and pull it back about 2.[address] the tube will become more anterior and will evacuate more air. I will also increase the suction on the chest tube. I explained to her that the worse case scenario is I will have to take her to the operating room to do a wedge resection of the emphysematous bleb, which is leaking. There is a national shortage of talc and there is no aerosolized talc to be had. We do have a talc that we can make into a slurry, although I do not think that is as effective as directly as spraying dry talc and creating the chemical pleurisy and subsequent scarring. I therefore repositioned her chest tube and pulled it back 2.5 cm.
[2017-04-04 16:00] VITALS: BP 121/57
[2017-04-04 20:00] VITALS: BP 116/55
[2017-04-04] MEDS: lamoTRIgine 100MG TAB PO SCH (20:31)
[2017-04-04] MEDS: MONTELUKAST 10 MG TAB PO SCH (20:32)
[2017-04-04] MEDS: ATORVASTATIN 5MG PER 1/2 TABLET PO SCH (20:32)
[2017-04-04] MEDS: VITAMIN D 1,000 INTERNATIONAL UNITS TABLET PO SCH (20:32)
[2017-04-05] VITALS (9 sets, daily range): BP systolic 118–139; BP diastolic 59–69; O2SAT 93–97
[2017-04-05] MEDS: LEVALBUTEROL 1.25 MG/0.5 ML CONCENTRATE NEB NEB SCH ×4 (02:06→20:10)
[2017-04-05] MEDS: KETOROLAC 30 MG/ML VIAL (J1885) IV SCH ×4 (05:00→23:16)
[2017-04-05 05:27] LABS: BASO # 0.1 K/mm3 (0.0-0.2); BASO % 0.7 % (0.0-1.0); EOS # 0.6 K/mm3 (0.0-0.50); EOS % 7.8 % (0.0-3.0); LARGE UNSTAINED CELL # 0.2 K/mm3 (0.0-0.4); LARGE UNSTAINED CELL % 2.6 % (0.0-4.0); LYMPH % 12.4 % (24.0-44.0); MEAN CORPUSCULAR HEMOGLOBIN 33.3 pg (27.0-33.0); MEAN CORPUSCULAR HGB CONC 33.4 g/dl (32.0-36.5); MEAN CORPUSCULAR VOLUME 99.9 fl (80.0-96.0); MONO # 0.4 K/mm3 (0.0-0.8); MONO % 5.1 % (0.0-5.0); NEUTROPHILS # 5.7 K/mm3 (1.8-7.7); NEUTROPHILS % 71.4 % (36.0-66.0); PLATELET COUNT, AUTOMATED 504 k/mm3 (150-450); RED CELL DISTRIBUTION WIDTH 13.1 % (11.5-14.5)
[2017-04-05 05:47] LABS: ANION GAP 6 MEQ/L (8-16); BLOOD UREA NITROGEN 14 MG/DL (7-18); CARBON DIOXIDE LEVEL 29 MEQ/L (21-32); CHLORIDE LEVEL 107 MEQ/L (98-107); CREATININE FOR GFR 0.68 MG/DL (0.55-1.02); GLOMERULAR FILTRATION RATE > 60.0 (>51); GLUCOSE, FASTING 86 MG/DL (70-105); POTASSIUM SERUM 4.2 MEQ/L (3.5-5.1); SODIUM LEVEL 142 MEQ/L (136-145)
[2017-04-05] MEDS: PANTOPRAZOLE 40MG INJ (PROTONIX) (C9113) IV SCH (09:00)
[2017-04-05] MEDS: MOM 30ML SUSPENSION UDC PO SCH (09:00)
[2017-04-05] MEDS: MULTIVITAMINS/MINERALS THERAP 1 TAB PO SCH (09:34)
[2017-04-05] MEDS: HEPARIN SOD (PORCINE) 5000 UNITS/ML VIAL SC SCH ×2 (09:34→21:02)
[2017-04-05] MEDS: ASCORBIC ACID 500 MG TAB PO SCH (09:34)
[2017-04-05] MEDS: DOCUSATE SODIUM 100 MG CAP PO SCH ×2 (09:34→21:02)
[2017-04-05] MEDS: DULoxetine 30 MG CAP (CYMBALTA) PO SCH (09:35)
[2017-04-05] MEDS: ASPIRIN 81 MG ENTERIC TAB PO SCH (09:35)
--- NOTE | 2017-04-05 09:57 | REP ---
CHEST X-RAY: Two views. HISTORY: Pneumothorax. Comparison study April 04, 2017. FINDINGS: A right apical chest tube remains in place. A very small residual right-sided pneumothorax is again seen essentially unchanged. EKG electrodes are seen. There is a left sided transvenous Iskfps-S-Upmh catheter with its tip in the expected location of the superior vena cava. Chronic fibrotic changes and volume loss and some mediastinal widening are noted on the left. IMPRESSION: Tiny right apical pneumothorax with right chest tube in place. Stable changes on the left. Signed by Yamil Rico MD 04/05/2017 12:58 P
[2017-04-05] MEDS: TIOTROPIUM INHALER/CAPSULE (SPIRIVA) INH SCH (13:43)
--- NOTE | 2017-04-05 13:56 | IPN ---
DATE OF SERVICE: 04/05/2017 Ms. Zhao is still leaking but only during exhalation today. She is not short of breath, and the pain is being well controlled at the chest tube insertion site. She is appearing comfortable and eating lunch as I see her this afternoon. Her vital signs show a maximum temperature (Tmax) of 97.4 with a heart rate that ranges between 66 and 82 in a sinus rhythm, respiratory rate that is constant at 18 who is 92% to 96% saturated on room air and whose blood pressure is ranging between 116/55 to 139/66. Her intake and output over the past 24 hours has been recorded as 1680 in and 3470 out, for a negativity of 1790 mL. She has had 20 mL out of the chest tube, and there is still an air leak during exhalation. She was previously on 40 cm of suction. On physical examination, her lungs show normal vesicular sounds. I hear no wheezes, rhonchi, or rales. Percussion note is full to the diaphragm. Cardiac examination is without murmurs, clicks, gallops, or rubs. I cannot feel her point of maximum impulse (PMI). S1 and S2 are normal. Abdomen is soft, nontender. Bowel sounds are positive. There is no hepatomegaly, no costovertebral angle (CVA) tenderness. Extremities show no pretibial edema, no calf tenderness. No differential swelling of the upper extremities. Skin is warm, dry, and perfused without cyanosis or mottling, including that of the nail beds and the knees. Neck is supple. There is no jugular venous distention, no subcutaneous emphysema. Trachea is midline. Mouth shows her mucous membranes to be pink and moist. Lips and commissures without lesions. There is no thrush. Eyes show her pupils to be equal and reactive. Extraocular muscles intact. Sclerae anicteric. Neurologic shows II-XII intact, along with gross motor and gross sensation intact. Gait is not tested. Psychiatric shows her to be awake and alert, oriented times three, with appropriate mood and affect and conversational. Her white count today is 8.0 with hemoglobin and hematocrit of 14.1 and 42.3, respectively, with a platelet count of 504. Differential shows 71% neutrophils, 12% lymphocytes, 5% monocytes. There are no immature forms and no toxic granulations. Electrolytes are normal with a BUN and creatinine of 14 and 0.68, glucose of 86, and a calcium of 9.0. Her chest x-ray shows the lung with a small separation at the cupula less than 1 mm. The inferior portion of the lung that was is now applied to the chest wall. I see no infiltrates on the right side, and she has deviation changes on the left side. Chest tube is in good position. IMPRESSION: 1. Spontaneous pneumothorax, right side. 2. Alveolar pleural fistula, continuing. 3. Severe chronic obstructive pulmonary disease (COPD). 4. Small cell carcinoma, status post chemotherapy, left side. 5. Bilateral adrenal masses and/or hyperplasia. 6. Sleep apnea. 7. Depression. 8. Hyperlipidemia. PLAN AND DISCUSSION: I will discontinue her suction today to see if the leak will close without suction. I have tried the high suction, and that has not worked. I do perceive the leak is a bit better, however, today, happening only during exhalation. I do think that she has a ruptured bleb and, in fact, I am very suspicious of one bleb that is above the surface of the pleura, which I can see both on the original CT when she had the large hemothorax and on the CT 2 days ago. I may need to eventually bring her to the operating room to do a wedge resection of blebs and some type of pleurodesis procedure.
[2017-04-05] MEDS ORDERED: SLF 3 ML SYR IV PRN (20:15)
[2017-04-05] MEDS: MONTELUKAST 10 MG TAB PO SCH (21:02)
[2017-04-05] MEDS: VITAMIN D 1,000 INTERNATIONAL UNITS TABLET PO SCH (21:02)
[2017-04-05] MEDS: lamoTRIgine 100MG TAB PO SCH (21:02)
[2017-04-05] MEDS: ATORVASTATIN 5MG PER 1/2 TABLET PO SCH (21:02)
[2017-04-05] MEDS: SLF 3 ML SYR IV SCH (21:03)
[2017-04-06] MEDS: LEVALBUTEROL 1.25 MG/0.5 ML CONCENTRATE NEB NEB SCH ×4 (02:00→20:29)
[2017-04-06 04:09] VITALS: BP 116/56
[2017-04-06] MEDS: KETOROLAC 30 MG/ML VIAL (J1885) IV SCH ×3 (05:39→18:50)
[2017-04-06] MEDS: SLF 3 ML SYR IV SCH ×3 (05:39→21:42)
[2017-04-06 06:22] LABS: BASO # 0.1 K/mm3 (0.0-0.2); BASO % 0.7 % (0.0-1.0); EOS # 0.7 K/mm3 (0.0-0.50); EOS % 8.8 % (0.0-3.0); LARGE UNSTAINED CELL # 0.2 K/mm3 (0.0-0.4); LARGE UNSTAINED CELL % 2.8 % (0.0-4.0); LYMPH # 1.2 K/mm3 (1.5-4.5); MEAN CORPUSCULAR HEMOGLOBIN 33.1 pg (27.0-33.0); MEAN CORPUSCULAR HGB CONC 32.6 g/dl (32.0-36.5); MEAN CORPUSCULAR VOLUME 101.6 fl (80.0-96.0); MONO # 0.5 K/mm3 (0.0-0.8); MONO % 6.3 % (0.0-5.0); NEUTROPHILS # 5.9 K/mm3 (1.8-7.7); NEUTROPHILS % 70.4 % (36.0-66.0); PLATELET COUNT, AUTOMATED 488 k/mm3 (150-450); RED CELL DISTRIBUTION WIDTH 13.3 % (11.5-14.5); WHITE BLOOD COUNT 8.4 K/mm3 (4.0-10.0)
[2017-04-06 06:40] LABS: ANION GAP 5 MEQ/L (8-16); BLOOD UREA NITROGEN 14 MG/DL (7-18); CARBON DIOXIDE LEVEL 27 MEQ/L (21-32); CHLORIDE LEVEL 107 MEQ/L (98-107); CREATININE FOR GFR 0.73 MG/DL (0.55-1.02); GLOMERULAR FILTRATION RATE > 60.0 (>51); GLUCOSE, FASTING 81 MG/DL (70-105); POTASSIUM SERUM 4.4 MEQ/L (3.5-5.1); SODIUM LEVEL 139 MEQ/L (136-145)
[2017-04-06 07:57] VITALS: BP 128/67
[2017-04-06] MEDS: MOM 30ML SUSPENSION UDC PO SCH (09:00)
[2017-04-06] MEDS: PANTOPRAZOLE 40MG TAB (PROTONIX) PO SCH (09:00)
[2017-04-06] MEDS: MULTIVITAMINS/MINERALS THERAP 1 TAB PO SCH (09:07)
[2017-04-06] MEDS: HEPARIN SOD (PORCINE) 5000 UNITS/ML VIAL SC SCH ×2 (09:07→21:41)
[2017-04-06] MEDS: DULoxetine 30 MG CAP (CYMBALTA) PO SCH (09:07)
[2017-04-06] MEDS: ASPIRIN 81 MG ENTERIC TAB PO SCH (09:07)
[2017-04-06] MEDS: DOCUSATE SODIUM 100 MG CAP PO SCH ×2 (09:08→21:38)
[2017-04-06] MEDS: ASCORBIC ACID 500 MG TAB PO SCH (09:08)
--- NOTE | 2017-04-06 10:27 | REP ---
CHEST X-RAY: Two views. HISTORY: Pneumothorax. Comparison study April 05, 2017. FINDINGS: Right pleural drainage catheter remains in place. The right-sided pneumothorax has increased since yesterday's chest x-ray and is visible laterally to the lung base where there is an air-fluid level in the pleural space and superiorly to the medial aspect of the apex. This is approximately 15%. There is some pleuroparenchymal opacity in the right mid lung zone. Chronic changes persist in the left hemithorax including volume loss with left hemidiaphragm elevation and perihilar fibrosis and increased density. There are clips in the left perihilar region and in the region of the thoracic inlet. The heart is not enlarged. There is an Oqyrmf-H-Irez catheter via the left side. IMPRESSION: Interval increase in the size of the right-sided pneumothorax. Now approximately 15%. Signed by Yamil Rico MD 04/06/2017 02:51 P
[2017-04-06 11:26] VITALS: BP 117/69
[2017-04-06] MEDS: TIOTROPIUM INHALER/CAPSULE (SPIRIVA) INH SCH (13:35)
[2017-04-06 15:38] VITALS: BP 115/67
[2017-04-06 20:36] VITALS: BP 125/73
[2017-04-06] MEDS: lamoTRIgine 100MG TAB PO SCH (21:39)
[2017-04-06] MEDS: MONTELUKAST 10 MG TAB PO SCH (21:39)
[2017-04-06] MEDS: VITAMIN D 1,000 INTERNATIONAL UNITS TABLET PO SCH (21:39)
[2017-04-06] MEDS: ATORVASTATIN 5MG PER 1/2 TABLET PO SCH (21:39)
--- NOTE | 2017-04-06 23:24 | IPN ---
DATE: 04/06/2017 Ms. Zhao has been off suction for 24 hours. When I first went in, I did not detect an air leak. With a forceful cough, there may be one bubble. Nonetheless her chest x-ray shows her lung having fallen away from the chest wall and has an approximate 20% pneumothorax. There is no subcutaneous emphysema, however. Her vital signs are stable with a T-max of 97.7 and a heart rate that ranges between 71 and 86 in a sinus rhythm. Blood pressure of 115/67 to 120.67 with a respiratory rate of 18 to 20 without the use of accessory muscles who is 93 to 100% saturated on room air. Her intake and output over the past 24 hours has been recorded as 2750 in and 5062 out for negativity of 2312 mL. She has put 12 mL out of the chest tube and the air leak is described as above. Weight today is 86.9 kg compared to 86 kg yesterday. She has put out 550 mL in urine and taken in 2750 in by mouth (p.o.) intake. She has not been given any Lasix and has spontaneously diuresed. On physical examination her lungs show normal vesicular sounds, but there are decreased breath sounds on the right side. Percussion note is full to the diaphragm. Cardiac exam is without murmurs, clicks, gallops or rubs. I cannot feel her point of maximal impulse (PMI). S1 and S2 are normal. Abdomen is soft and nontender. Bowel sounds are positive. There is no hepatomegaly. No costovertebral angle (CVA) tenderness. Extremities show no pretibial edema. No calf tenderness. No differential swelling of the upper extremities. Skin is warm, dry and perfused without cyanosis or mottling including that of the nail beds and the knees. Neck is supple. There is no jugular venous distention. No subcutaneous emphysema. Trachea is midline. Mouth shows her mucous membranes to be pink and moist. Lips and commissures without lesions. No thrush. Eyes show her pupils to be equal, reactive. Extraocular muscles intact. Sclera anicteric. Neuro shows II through XII intact. Gross motor and gross sensation intact. Gait is not tested. Psychiatric shows her to be awake, alert and oriented times three with appropriate mood, affect and conversational. Her white count today is 8.4 with hemoglobin and hematocrit of 13.2 and 40.5. Platelet count is 488 and differential shows 70% neutrophils, 11% lymphocytes, 60% monocytes. There are no immature forms or toxic granulations. Her chemistries today show normal electrolytes with BUN and creatinine of 14 and 0.73. Glucose of 81, and calcium 9.0. Her chest x-ray today is described as above. She has about a 20% pneumothorax with the majority of the pneumothorax at the cupula of the lung. There may be a small air fluid level at the costophrenic angle just blunting it. There is some separation at the lateral wall. I do not see an anterior separation on the lateral film. There are no infiltrates other than the radiation changes in the left upper lobe. IMPRESSION: 1. Spontaneous pneumothorax right side. 2. Alveolar pleural fistula. Hopefully resolving. 3. Chronic obstructive pulmonary disease. 4. Small cell carcinoma, status post chemotherapy and radiation. 5. Bilateral adrenal masses and/or hyperplasia. 6. Sleep apnea. 7. Depression. 8. Hyperlipidemia. PLAN AND DISCUSSION: I will place her back on 10 cm of suction. I am hoping that the air leak is going to stop. If I do need to take her to the operating room for a wedge resection and a pleurodesis, the operating room is ordering a talc insufflator and we have one vial of talc powder available.
[2017-04-07] VITALS (7 sets, daily range): BP systolic 107–125; BP diastolic 58–72
[2017-04-07] MEDS: KETOROLAC 30 MG/ML VIAL (J1885) IV SCH ×2 (01:01→06:00)
[2017-04-07] MEDS: LEVALBUTEROL 1.25 MG/0.5 ML CONCENTRATE NEB NEB SCH ×4 (02:00→20:38)
[2017-04-07 05:36] LABS: BASO % 0.6 % (0.0-1.0); EOS # 0.6 K/mm3 (0.0-0.50); EOS % 7.7 % (0.0-3.0); LARGE UNSTAINED CELL # 0.2 K/mm3 (0.0-0.4); LARGE UNSTAINED CELL % 2.4 % (0.0-4.0); LYMPH % 10.2 % (24.0-44.0); MEAN CORPUSCULAR HEMOGLOBIN 32.7 pg (27.0-33.0); MEAN CORPUSCULAR HGB CONC 32.5 g/dl (32.0-36.5); MEAN CORPUSCULAR VOLUME 100.7 fl (80.0-96.0); MONO # 0.5 K/mm3 (0.0-0.8); MONO % 5.7 % (0.0-5.0); NEUTROPHILS # 6.1 K/mm3 (1.8-7.7); NEUTROPHILS % 73.5 % (36.0-66.0); PLATELET COUNT, AUTOMATED 433 k/mm3 (150-450); RED CELL DISTRIBUTION WIDTH 13.5 % (11.5-14.5); WHITE BLOOD COUNT 8.3 K/mm3 (4.0-10.0)
[2017-04-07 05:59] LABS: ANION GAP 6 MEQ/L (8-16); BLOOD UREA NITROGEN 19 MG/DL (7-18); CALCIUM LEVEL 8.8 MG/DL (8.5-10.1); CARBON DIOXIDE LEVEL 28 MEQ/L (21-32); CHLORIDE LEVEL 107 MEQ/L (98-107); CREATININE FOR GFR 0.72 MG/DL (0.55-1.02); GLOMERULAR FILTRATION RATE > 60.0 (>51); GLUCOSE, FASTING 88 MG/DL (70-105); POTASSIUM SERUM 4.3 MEQ/L (3.5-5.1); SODIUM LEVEL 141 MEQ/L (136-145)
[2017-04-07] MEDS: SLF 3 ML SYR IV SCH ×3 (06:00→20:15)
[2017-04-07] MEDS: TIOTROPIUM INHALER/CAPSULE (SPIRIVA) INH SCH (08:14)
--- NOTE | 2017-04-07 08:17 | REP ---
Clinical: Follow up pneumothorax. Technique: PA and lateral. Comparison: 04/06/2017. Findings: Previously identified right pneumothorax is significantly improved with only small residual apical pneumothorax suggested. The right chest tube is in stable position. Underlying bilateral pleuroparenchymal changes including small right pleural effusion are essentially unchanged. [id number] again identified with tip in the SVC. Skeletal structures intact. Impression: 1. Very small residual right apical pneumothorax improved from prior examination. 2. Diffuse bilateral pleuroparenchymal changes similar to prior examination. Signed by Gutierrez Jenkins MD 04/07/2017 08:09 A
[2017-04-07] MEDS: DOCUSATE SODIUM 100 MG CAP PO SCH ×2 (08:23→20:13)
[2017-04-07] MEDS: MOM 30ML SUSPENSION UDC PO SCH (08:23)
[2017-04-07] MEDS: ASPIRIN 81 MG ENTERIC TAB PO SCH (08:23)
[2017-04-07] MEDS: DULoxetine 30 MG CAP (CYMBALTA) PO SCH (08:23)
[2017-04-07] MEDS: ASCORBIC ACID 500 MG TAB PO SCH (08:23)
[2017-04-07] MEDS: PANTOPRAZOLE 40MG TAB (PROTONIX) PO SCH (08:23)
[2017-04-07] MEDS: MULTIVITAMINS/MINERALS THERAP 1 TAB PO SCH (08:23)
[2017-04-07] MEDS: HEPARIN SOD (PORCINE) 5000 UNITS/ML VIAL SC SCH ×2 (08:24→20:14)
--- NOTE | 2017-04-07 14:46 | IPN ---
DATE: 04/07/2017 Ms. Zhao still has an air leak, even on 10 cm of suction. The lung is now again up to the chest wall. It has now been nearly a week and I do not think that this is going to change and she and I have discussed taking her down to undertake a wedge resection of her leaking bleb and a talc pleurodesis. See discussion below. Her vital signs show a maximum temperature (t-max) of 98.1 with a heart rate that ranges between 74 and 106 in a sinus rhythm, respiratory rate of 18 to 22 without the use of accessory muscles, who is 98 to 96% saturated on room air and whose blood pressure is running between 118/65 to 107/67. Her intake and output for the past 24 hours has been recorded as 2120 in and 2910 out for negativity of 790 mL. She has put 10 mL out of the chest tube and there is the above air leak. Weight today is 87.1 kg compared to 86.9 kg yesterday. PHYSICAL EXAMINATION LUNGS: Her lungs show equal breath sounds on either side. I hear no wheezes, rhonchi or rales. There are no rubs. Her percussion note is full to the diaphragm. CARDIAC EXAM: Without murmurs, clicks, gallops or rubs. I cannot feel her point of maximum impulse (PMI). S1, S2 are normal. ABDOMEN: Soft, nontender. Bowel sounds positive. There is no hepatomegaly. No costovertebral angle tenderness. EXTREMITIES: Show no pretibial edema. No calf tenderness. No differential swelling of the upper extremities. SKIN: Warm, dry and perfused without cyanosis or mottling, including that of the nail beds and knees. NECK: Supple. There is no jugular venous distention. No subcutaneous emphysema. Trachea is midline. MOUTH: Shows his mucous membranes to be pink and moist. Lips and commissures without lesions. There is no thrush. EYES: Show her pupils to be equal and reactive. Extraocular motion intact. Sclerae anicteric. NEUROLOGIC: Shows II through XII intact with gross motor and gross sensation intact. Gait is not tested. PSYCHIATRIC: Shows him to be awake and alert, oriented times three with appropriate mood and affect and conversational. Her white count today is 8.3 with hemoglobin and hematocrit of 12.7 and 39.3 and a platelet count of 433. Differential shows 73% neutrophils, 10% lymphocytes, 5% monocytes. There are no immature forms. No toxic granulations. Her chemistries show normal electrolytes with BUN and creatinine of 19 and 0.72. Glucose of 88 and calcium 8.8. Her chest x-ray again shows her lung full expanded to the chest wall. Costophrenic angles are sharp and there are no infiltrates other than the radiation changes in the left upper lobe. IMPRESSION: 1. Alveolar pleural fistula, continuing. 2. Spontaneous pneumothorax right side. 3. Chronic obstructive pulmonary disease. 4. Small cell carcinoma, status post chemotherapy and radiation. 5. Bilateral adrenal masses and/or hyperplasia. 6. Sleep apnea. 7. Depression. 8. Hyperlipidemia. PLAN AND DISCUSSION: As noted above, I will tentatively plan to take her to the operating room on Wednesday. Should the leak stop, we will certainly have to reconsider. I will monitor over the next 36 hours. I have explained to her the problem with talc and that I will be forced to use a talc slurry rather than the powdered talc, which certainly is not as good. This will depend upon the stapling procedure to eliminate the air leak. This is always problematic in that finding the leak is often times difficult, as fluid is placed into the chest and then displaced by the expanding lung. The CAT scan is very suggestive of a bleb, which is above the surface of the lung, which may be the offending pathology.
[2017-04-07] MEDS: diphenhydrAMINE 25 MG CAP PO PRN (18:24)
[2017-04-07] MEDS: MONTELUKAST 10 MG TAB PO SCH (20:14)
[2017-04-07] MEDS: ATORVASTATIN 5MG PER 1/2 TABLET PO SCH (20:14)
[2017-04-07] MEDS: VITAMIN D 1,000 INTERNATIONAL UNITS TABLET PO SCH (20:14)
[2017-04-07] MEDS: lamoTRIgine 100MG TAB PO SCH (20:14)
[2017-04-08] MEDS: LEVALBUTEROL 1.25 MG/0.5 ML CONCENTRATE NEB NEB SCH ×4 (01:10→20:22)
[2017-04-08 04:00] VITALS: BP 103/57
[2017-04-08 05:17] LABS: BASO # 0.1 K/mm3 (0.0-0.2); BASO % 0.9 % (0.0-1.0); EOS # 0.8 K/mm3 (0.0-0.50); EOS % 11.6 % (0.0-3.0); LARGE UNSTAINED CELL # 0.3 K/mm3 (0.0-0.4); LARGE UNSTAINED CELL % 3.7 % (0.0-4.0); LYMPH # 1.1 K/mm3 (1.5-4.5); LYMPH % 13.4 % (24.0-44.0); MEAN CORPUSCULAR HEMOGLOBIN 32.9 pg (27.0-33.0); MEAN CORPUSCULAR HGB CONC 32.9 g/dl (32.0-36.5); MEAN CORPUSCULAR VOLUME 100.1 fl (80.0-96.0); MONO # 0.5 K/mm3 (0.0-0.8); MONO % 6.8 % (0.0-5.0); NEUTROPHILS # 4.3 K/mm3 (1.8-7.7); NEUTROPHILS % 63.6 % (36.0-66.0); PLATELET COUNT, AUTOMATED 394 k/mm3 (150-450); RED CELL DISTRIBUTION WIDTH 13.4 % (11.5-14.5); WHITE BLOOD COUNT 6.7 K/mm3 (4.0-10.0)
[2017-04-08] MEDS: SLF 3 ML SYR IV SCH ×3 (05:32→21:05)
[2017-04-08 05:45] LABS: ANION GAP 7 MEQ/L (8-16); BLOOD UREA NITROGEN 16 MG/DL (7-18); CALCIUM LEVEL 8.4 MG/DL (8.5-10.1); CARBON DIOXIDE LEVEL 26 MEQ/L (21-32); CHLORIDE LEVEL 108 MEQ/L (98-107); CREATININE FOR GFR 0.76 MG/DL (0.55-1.02); GLOMERULAR FILTRATION RATE > 60.0 (>51); GLUCOSE, FASTING 86 MG/DL (70-105); POTASSIUM SERUM 4.3 MEQ/L (3.5-5.1); SODIUM LEVEL 141 MEQ/L (136-145)
[2017-04-08] MEDS: TIOTROPIUM INHALER/CAPSULE (SPIRIVA) INH SCH (07:06)
[2017-04-08 07:30] VITALS: BP 117/59
[2017-04-08] MEDS: MOM 30ML SUSPENSION UDC PO SCH (08:33)
[2017-04-08] MEDS: DOCUSATE SODIUM 100 MG CAP PO SCH ×2 (08:33→21:00)
[2017-04-08] MEDS: DULoxetine 30 MG CAP (CYMBALTA) PO SCH (08:33)
[2017-04-08] MEDS: ASPIRIN 81 MG ENTERIC TAB PO SCH (08:33)
[2017-04-08] MEDS: PANTOPRAZOLE 40MG TAB (PROTONIX) PO SCH (08:34)
[2017-04-08] MEDS: ASCORBIC ACID 500 MG TAB PO SCH (08:34)
[2017-04-08] MEDS: MULTIVITAMINS/MINERALS THERAP 1 TAB PO SCH (08:34)
[2017-04-08] MEDS: HEPARIN SOD (PORCINE) 5000 UNITS/ML VIAL SC SCH ×2 (08:34→21:00)
--- NOTE | 2017-04-08 09:37 | REP ---
CHEST X-RAY: Two views. HISTORY: Pneumothorax. Comparison study April 07, 2017. FINDINGS: A right chest tube remains in place. A small amount of right pleural air persists decreased in size from yesterday's radiograph. There is subcutaneous emphysema in the extrathoracic soft tissues. A left-sided [id number]-K-Hluz catheter and chronic changes in the left lung are again seen as before. No new infiltrate. IMPRESSION: Tiny right sided pneumothorax improved from the previous day's study. Right chest tube remains in place. Signed by Yamil Rico MD 04/08/2017 10:19 A
[2017-04-08 12:15] VITALS: BP 125/75
--- NOTE | 2017-04-08 13:36 | IPN ---
DATE OF SERVICE: 04/08/2017 Ms. Zhao still has an air leak with forceful cough. It has now been nearly a week, and we have decided that she will be going to the operating room tomorrow to undergo a wedge resection and stapling of her probable emphysematous bleb and a talc pleurodesis. Her vital signs show a maximum temperature (Tmax) of 98.7 with a heart rate that ranges between 85 and 105 in a sinus rhythm, respiratory rate of 16-20 without the use of accessory muscles, who is 97% saturated on room air and whose blood pressure is ranging between 112/59 to 103/57. Her intake and output over the past 24 hours has been recorded as 1440 in and 3316 out for negativity of 180 mL. Her weight today is 86.5 kg today compared to 87.1 kg yesterday. On physical examination, she has equal breath sounds on either side. I hear no wheezes, rhonchi, or rales. There is no subcutaneous emphysema. Percussion note is full to the diaphragm. CARDIAC EXAMINATION: Is without murmurs, clicks, gallops, or rubs. I cannot feel her point of maximum impulse (PMI). S1 and S2 are normal. ABDOMEN: Soft, nontender. Bowel sounds are positive. There is no hepatomegaly. No costovertebral angle (CVA) tenderness. EXTREMITIES: Show no pretibial edema. No calf tenderness. No differential swelling of the upper extremities. SKIN: Is warm, dry, and perfused without cyanosis or mottling, including that of the nail beds and the knees. NECK: Is supple. There is no jugular venous distention. No subcutaneous emphysema. Trachea is midline. MOUTH: Shows her mucous membranes to be pink and moist. Lips and commissures without lesions. There is no thrush. EYES: Show her pupils to be equal and reactive. Extraocular motion intact. Sclerae anicteric. NEUROLOGIC: Shows II-XII intact, along with gross motor and gross sensation intact. Gait is not tested. PSYCHIATRIC: Shows her to be awake and alert, oriented times three with appropriate mood and affect and conversational. Her white count today is 6.7 with hemoglobin and hematocrit of 13 and 39.7, respectively, unchanged from yesterday, with a platelet count of 394 and stable. Differential shows 66% neutrophils, 30% lymphocytes, 6% monocytes. There are no immature forms. No toxic granulations. Her chemistries show normal electrolytes with BUN and creatinine of 16 and 0.76. Glucose of 86 and a calcium of 8.4. Her chest x-ray today shows her lung fully expanded to the chest wall. There are no infiltrates, and costophrenic angles are sharp. IMPRESSION: 1. Alveolar pleural fistula, continuing. 2. Spontaneous pneumothorax, right side. 3. Chronic obstructive pulmonary disease (COPD). 4. Small cell carcinoma, status post chemotherapy and radiation. 5. Bilateral adrenal masses and/or hyperplasia. 6. Sleep apnea. 7. Depression. 8. Hyperlipidemia. PLAN AND DISCUSSION: As noted in the introduction to the note and yesterday, I will take her to the operating room tomorrow. I will check to see if she is leaking tomorrow morning. There is still a chance that I could call off the surgery if she stops leaking. The problems with the talc were discussed yesterday.
[2017-04-08 15:30] VITALS: BP 115/65
[2017-04-08 20:00] VITALS: BP 128/59
[2017-04-08] MEDS: ATORVASTATIN 5MG PER 1/2 TABLET PO SCH (21:03)
[2017-04-08] MEDS: lamoTRIgine 100MG TAB PO SCH (21:03)
[2017-04-08] MEDS: MONTELUKAST 10 MG TAB PO SCH (21:04)
[2017-04-08] MEDS: VITAMIN D 1,000 INTERNATIONAL UNITS TABLET PO SCH (21:04)
[2017-04-08] MEDS: diphenhydrAMINE 25 MG CAP PO PRN (21:07)
[2017-04-09] VITALS (9 sets, daily range): BP systolic 65–142; BP diastolic 58–72
[2017-04-09] MEDS: LEVALBUTEROL 1.25 MG/0.5 ML CONCENTRATE NEB NEB SCH ×5 (01:10→23:48)
[2017-04-09] MEDS: SLF 3 ML SYR IV SCH ×3 (04:52→21:24)
[2017-04-09 05:10] LABS: BASO % 0.6 % (0.0-1.0); EOS % 14.7 % (0.0-3.0); LARGE UNSTAINED CELL # 0.3 K/mm3 (0.0-0.4); LYMPH # 1.2 K/mm3 (1.5-4.5); LYMPH % 13.3 % (24.0-44.0); MEAN CORPUSCULAR HEMOGLOBIN 33.2 pg (27.0-33.0); MEAN CORPUSCULAR VOLUME 100.4 fl (80.0-96.0); MONO # 0.4 K/mm3 (0.0-0.8); MONO % 6.4 % (0.0-5.0); NEUTROPHILS # 4.2 K/mm3 (1.8-7.7); PLATELET COUNT, AUTOMATED 366 k/mm3 (150-450); RED CELL DISTRIBUTION WIDTH 13.5 % (11.5-14.5); WHITE BLOOD COUNT 6.9 K/mm3 (4.0-10.0)
[2017-04-09 05:28] LABS: ANION GAP 4 MEQ/L (8-16); BLOOD UREA NITROGEN 17 MG/DL (7-18); CALCIUM LEVEL 8.6 MG/DL (8.5-10.1); CARBON DIOXIDE LEVEL 28 MEQ/L (21-32); CHLORIDE LEVEL 108 MEQ/L (98-107); CREATININE FOR GFR 0.75 MG/DL (0.55-1.02); GLOMERULAR FILTRATION RATE > 60.0 (>51); GLUCOSE, FASTING 89 MG/DL (70-105); POTASSIUM SERUM 4.2 MEQ/L (3.5-5.1); SODIUM LEVEL 140 MEQ/L (136-145)
--- NOTE | 2017-04-09 06:40 | REP ---
Clinical: Follow up pneumothorax. Technique: PA and lateral. Comparison: 04/08/2017. Findings: Right apical chest tube is in stable position. No significant residual pneumothorax is appreciated. Bilateral pleuroparenchymal changes including ill-defined opacities involving the mediastinum are unchanged. No new acute process identified. Impression: No significant residual pneumothorax. Stable diffuse bilateral and mediastinal pleuroparenchymal changes. Signed by Gutierrez Jenkins MD 04/09/2017 06:32 A
[2017-04-09] MEDS ORDERED: STERILE TALC 5 GM XX ONE (07:00)
[2017-04-09] MEDS ORDERED: BUPIVACAINE LIPOSOME/PF 1.3% 20 ML VIAL (13.3MG/ML)(EXPAREL) As Ordered ONE (07:11)
[2017-04-09] MEDS ORDERED: BUPIVACAINE HCL 0.25% 30 ML VIAL As Ordered ONE ×2 (07:11→09:10)
[2017-04-09] MEDS ORDERED: BUPIVACAINE HCL 0.5% 30 ML VIAL As Ordered ONE (07:11)
[2017-04-09] MEDS ORDERED: MIDAZOLAM INJ 2 MG/2 ML VIAL (J2250) As Ordered ONE ×3 (07:13→09:31)
[2017-04-09] MEDS ORDERED: fentaNYL 100 MCG/2 ML INJECTION (J3010) As Ordered ONE (07:13)
[2017-04-09] MEDS: MIDAZOLAM INJ 2 MG/2 ML VIAL (J2250) IV SCH ×2 (07:23→07:24)
[2017-04-09] MEDS: fentaNYL 100 MCG/2 ML INJECTION (J3010) IV SCH ×2 (07:23→07:25)
[2017-04-09] MEDS ORDERED: BUPIVACAINE HCL 0.5% 10 ML VIAL As Ordered ONE (07:38)
[2017-04-09] MEDS ORDERED: ceFAZolin 1GM INJ (J0690) As Ordered ONE (07:41)
[2017-04-09] MEDS ORDERED: MUPIROCIN 2% OINT 22 GM TUBE As Ordered ONE (07:43)
[2017-04-09] MEDS: DOCUSATE SODIUM 100 MG CAP PO SCH ×2 (09:00→21:23)
[2017-04-09] MEDS: HEPARIN SOD (PORCINE) 5000 UNITS/ML VIAL SC SCH ×2 (09:00→21:23)
[2017-04-09] MEDS: MOM 30ML SUSPENSION UDC PO SCH (09:00)
[2017-04-09] MEDS: PANTOPRAZOLE 40MG TAB (PROTONIX) PO SCH (09:00)
[2017-04-09] MEDS: TIOTROPIUM INHALER/CAPSULE (SPIRIVA) INH SCH (09:00)
[2017-04-09] MEDS ORDERED: fentaNYL 250 MCG/5 ML INJECTION (J3010) As Ordered ONE (09:08)
[2017-04-09] MEDS ORDERED: DESFLURANE 240 ML INHALANT As Ordered ONE (09:08)
[2017-04-09] MEDS ORDERED: PROPOFOL 200 MG/20 ML VIAL As Ordered ONE (09:09)
[2017-04-09] MEDS ORDERED: ROCURONIUM BROMIDE 50 MG/5 ML VIAL As Ordered ONE (09:09)
[2017-04-09] MEDS ORDERED: ONDANSETRON 4MG/2ML VIAL (J2405) As Ordered ONE (09:10)
[2017-04-09] MEDS ORDERED: LIDOCAINE 2% INJ 100 MG/5 ML SDV (FOR ANES.) As Ordered ONE (09:10)
[2017-04-09] MEDS ORDERED: GLYCOPYRROLATE INJ 0.2 MG/ML 2 ML VIAL As Ordered ONE (09:10)
[2017-04-09] MEDS ORDERED: NEOSTIGMINE 1MG/ML 5 ML SYRINGE (J2710) As Ordered ONE (09:10)
[2017-04-09] MEDS ORDERED: NALOXONE INJ 0.4 MG/1 ML VIAL (J2310) IV PRN (09:30)
[2017-04-09] MEDS ORDERED: METOCLOPRAMIDE INJ 10MG/2ML VIAL (J2765) IV PRN ×2 (09:30→11:30)
[2017-04-09] MEDS ORDERED: ONDANSETRON 4MG/2ML VIAL (J2405) IV PRN ×2 (09:30→11:30)
[2017-04-09] MEDS ORDERED: EPIDURAL/PCA KEYS XX PRN (09:30)
[2017-04-09] MEDS ORDERED: diphenhydrAMINE INJ 50MG/ML VIAL (J1200) IV PRN (09:30)
[2017-04-09] MEDS ORDERED: WALLBOXKEY XX PRN (09:30)
[2017-04-09] MEDS ORDERED: FENTANYL 2MCG/ML BUPIVACAINE 0.0625% NACL 250ML IV BAG As Ordered ONE (10:29)
[2017-04-09] MEDS: FENTANYL/BUPIVACAINE/NACL BAG 250 ML EPIDURAL SCH (10:45)
[2017-04-09] MEDS: KETOROLAC 30 MG/ML VIAL (J1885) IV SCH ×3 (11:00→23:02)
[2017-04-09] MEDS: KCL 20MEQ IN D5/NS 1000ML 1,000 ML IV SCH (11:00)
[2017-04-09 11:09] LABS: ABG BASE EXCESS -1.8 (-2.0-2.0); ABG HCO3 26.1 MEQ/L (22.0-26.0); ABG PARTIAL PRESSURE CO2 57.9 mmHg (35.0-45.0); ABG PARTIAL PRESSURE O2 91.7 mmHg (75.0-100.0); ABG STANDARD HCO3 22.9 MEQ/L (22.0-26.0); ABG TOTAL CO2 27.8 MEQ/L (22.0-29.0); ABG pH (ARTERIAL) 7.271 UNITS (7.350-7.450)
[2017-04-09 11:15] LABS: BASO # 0.1 K/mm3 (0.0-0.2); BASO % 0.7 % (0.0-1.0); EOS # 0.9 K/mm3 (0.0-0.50); EOS % 11.3 % (0.0-3.0); LARGE UNSTAINED CELL # 0.2 K/mm3 (0.0-0.4); LARGE UNSTAINED CELL % 2.2 % (0.0-4.0); LYMPH # 0.7 K/mm3 (1.5-4.5); LYMPH % 8.6 % (24.0-44.0); MEAN CORPUSCULAR HEMOGLOBIN 32.5 pg (27.0-33.0); MEAN CORPUSCULAR HGB CONC 31.7 g/dl (32.0-36.5); MEAN CORPUSCULAR VOLUME 102.7 fl (80.0-96.0); MONO # 0.5 K/mm3 (0.0-0.8); MONO % 6.1 % (0.0-5.0); NEUTROPHILS # 5.8 K/mm3 (1.8-7.7); NEUTROPHILS % 71.1 % (36.0-66.0); PLATELET COUNT, AUTOMATED 385 k/mm3 (150-450); RED CELL DISTRIBUTION WIDTH 13.2 % (11.5-14.5); WHITE BLOOD COUNT 8.2 K/mm3 (4.0-10.0)
[2017-04-09] MEDS ORDERED: PERCOCET 5MG/325MG TAB PO PRN (11:30)
[2017-04-09] MEDS ORDERED: fentaNYL 100 MCG/2 ML INJECTION (J3010) IV PRN (11:30)
[2017-04-09] MEDS ORDERED: LR 1,000 ML IV SCH (11:30)
[2017-04-09 11:37] LABS: ANION GAP 4 MEQ/L (8-16); BLOOD UREA NITROGEN 18 MG/DL (7-18); CALCIUM LEVEL 8.9 MG/DL (8.5-10.1); CARBON DIOXIDE LEVEL 28 MEQ/L (21-32); CHLORIDE LEVEL 108 MEQ/L (98-107); CREATININE FOR GFR 0.75 MG/DL (0.55-1.02); GLOMERULAR FILTRATION RATE > 60.0 (>51); GLUCOSE, FASTING 99 MG/DL (70-105); POTASSIUM SERUM 4.9 MEQ/L (3.5-5.1); SODIUM LEVEL 140 MEQ/L (136-145)
--- NOTE | 2017-04-09 11:46 | REP ---
PORTABLE CHEST: AP portable view of the chest is performed and compared to a prior study of 04/09/2017 at 6:22 a.m. The current study is performed at 10:50 a.m. There are now two chest tubes on the right. I do not see a definite pneumothorax. Scattered mild interstitial opacities on the right lung are stable. Left hilar opacities are stable. The cardiomediastinal silhouette is unchanged. Left central venous catheter is again noted. IMPRESSION: Two right chest tubes are now seen. The study is otherwise stable. Signed by Arnold Mcguire MD 04/09/2017 04:51 P
[2017-04-09 12:11] LABS: ABG DEVICE ROOM AIR; ABG HCO3 27.3 MEQ/L (22.0-26.0); ABG PARTIAL PRESSURE CO2 55.6 mmHg (35.0-45.0); ABG PARTIAL PRESSURE O2 92.2 mmHg (75.0-100.0); ABG STANDARD HCO3 24.5 MEQ/L (22.0-26.0); ABG pH (ARTERIAL) 7.309 UNITS (7.350-7.450)
[2017-04-09] MEDS ORDERED: KCL 20MEQ IN D5/0.9%NACL 1000 ML As Ordered ONE (13:16)
--- NOTE | 2017-04-09 13:41 | RO ---
DATE OF PROCEDURE: 04/09/2017 PREPROCEDURE DIAGNOSIS: Right alveolar pleural fistula. POSTPROCEDURE DIAGNOSIS: Right alveolar pleural fistula. SURGEON: Regino Quispe MD STEWARD/STEWARDESS WINE: ANESTHESIA: PROCEDURE: Multiple wedge resections times four of emphysematous blebs, talc pleurodesis, five level rib block and bronchoscopy. FINDINGS: There was one obvious ruptured bleb on the medial surface of the lung, which had been suspected via CT scan. Other suspicious areas of blebs were seen and stable. The lung was reinflated with external insufflation and covered with water. There was no air leak seen. Bronchoscopy revealed normal branching tracheobronchial tree with increased secretions. There were no endobronchial lesions seen. DESCRIPTION OF PROCEDURE: Under satisfactory general anesthesia and single lumen tube endotracheal intubation, the bronchoscope was placed into the endotracheal bronchial tree with the above results. Her left side was quite friable, most likely secondary to the prior radiation for her small cell carcinoma There were copious amounts of secretions and these were cleared with suction aspiration and each segment and subsegment were thoroughly inspected. Right side showed normal anatomy and was much less friable. The patient was then turned to the left lateral decubitus position and sterilely prepped and draped in the usual fashion. A thoracoscopy 5 mm port was placed in the approximate 6th intercostal space. Two additional ports, both 5 mm, were then placed for instrumentation. The lung was thoroughly inspected and the bleb, which was seen on the CT scan, which looked to be ruptured, was teased with grasping forceps and excised with [place] 4.8 ANY stapler. There were other suspicious areas that were also wedged out. This amounted to a total of four additional wedges. She had numerous adhesions and these were taken down with the Samuel harmonic scalpel. The lung could be thoroughly inspected and it did not look as if there were any other suspicious areas. With the external insufflator turned to 20 mmHg of pressure, the lung was gently reinflated and water was placed over the surfaces of the lung. No bubbles were seen. Talc slurry was then infused into the pleural cavity. Two chest tubes were placed, a #24 curved and a #28 straight anteriorly. consisting of Exparel was then injected. The posterior thoracoscopy site, which had been enlarged to accept a 12 mm port was then closed with running #0 Vicryl for the extrathoracic muscles and running #4-0 Monocryl subcuticular sutures for the skin. The patient tolerated the procedure well and left the operating room in satisfactory condition for the recovery room.
[2017-04-09] MEDS: ASPIRIN 81 MG ENTERIC TAB PO SCH (15:58)
[2017-04-09] MEDS: DULoxetine 30 MG CAP (CYMBALTA) PO SCH (15:58)
[2017-04-09] MEDS: ASCORBIC ACID 500 MG TAB PO SCH (15:59)
[2017-04-09] MEDS: MULTIVITAMINS/MINERALS THERAP 1 TAB PO SCH (15:59)
[2017-04-09] MEDS: VITAMIN D 1,000 INTERNATIONAL UNITS TABLET PO SCH (21:23)
[2017-04-09] MEDS: ATORVASTATIN 5MG PER 1/2 TABLET PO SCH (21:24)
[2017-04-09] MEDS: lamoTRIgine 100MG TAB PO SCH (21:24)
[2017-04-09] MEDS: diphenhydrAMINE 25 MG CAP PO PRN (21:37)
[2017-04-09] MEDS: MONTELUKAST 10 MG TAB PO SCH (21:38)
[2017-04-10] MEDS: KCL 20MEQ IN D5/NS 1000ML 1,000 ML IV SCH (00:20)
[2017-04-10 03:45] VITALS: BP 103/59
[2017-04-10] MEDS: KETOROLAC 30 MG/ML VIAL (J1885) IV SCH ×4 (05:43→23:27)
[2017-04-10] MEDS: SLF 3 ML SYR IV SCH ×3 (05:43→20:19)
[2017-04-10 06:33] LABS: BASO % 0.3 % (0.0-1.0); EOS # 0.6 K/mm3 (0.0-0.50); EOS % 5.2 % (0.0-3.0); LARGE UNSTAINED CELL # 0.2 K/mm3 (0.0-0.4); LARGE UNSTAINED CELL % 1.6 % (0.0-4.0); LYMPH # 0.7 K/mm3 (1.5-4.5); LYMPH % 4.4 % (24.0-44.0); MEAN CORPUSCULAR HEMOGLOBIN 33.6 pg (27.0-33.0); MEAN CORPUSCULAR HGB CONC 32.9 g/dl (32.0-36.5); MEAN CORPUSCULAR VOLUME 102.2 fl (80.0-96.0); MONO # 0.7 K/mm3 (0.0-0.8); MONO % 6.3 % (0.0-5.0); NEUTROPHILS # 9.3 K/mm3 (1.8-7.7); NEUTROPHILS % 82.2 % (36.0-66.0); PLATELET COUNT, AUTOMATED 287 k/mm3 (150-450); RED CELL DISTRIBUTION WIDTH 13.3 % (11.5-14.5); WHITE BLOOD COUNT 11.3 K/mm3 (4.0-10.0)
[2017-04-10] MEDS: LEVALBUTEROL 1.25 MG/0.5 ML CONCENTRATE NEB NEB SCH ×3 (06:35→20:14)
[2017-04-10 06:38] LABS: ABG BASE EXCESS 0.6 (-2.0-2.0); ABG HCO3 24.9 MEQ/L (22.0-26.0); ABG PARTIAL PRESSURE O2 88.3 mmHg (75.0-100.0); ABG TOTAL CO2 26.1 MEQ/L (22.0-29.0); ABG pH (ARTERIAL) 7.423 UNITS (7.350-7.450)
[2017-04-10 06:40] LABS: ANION GAP 6 MEQ/L (8-16); BLOOD UREA NITROGEN 13 MG/DL (7-18); CALCIUM LEVEL 8.5 MG/DL (8.5-10.1); CARBON DIOXIDE LEVEL 28 MEQ/L (21-32); CHLORIDE LEVEL 102 MEQ/L (98-107); CREATININE FOR GFR 0.76 MG/DL (0.55-1.02); GLOMERULAR FILTRATION RATE > 60.0 (>51); GLUCOSE, FASTING 95 MG/DL (70-105); POTASSIUM SERUM 4.3 MEQ/L (3.5-5.1); SODIUM LEVEL 136 MEQ/L (136-145)
[2017-04-10 07:38] VITALS: BP 115/56
[2017-04-10] MEDS: TIOTROPIUM INHALER/CAPSULE (SPIRIVA) INH SCH (07:40)
[2017-04-10] MEDS: DULoxetine 30 MG CAP (CYMBALTA) PO SCH (08:14)
[2017-04-10] MEDS: DOCUSATE SODIUM 100 MG CAP PO SCH ×2 (08:14→20:18)
[2017-04-10] MEDS: MOM 30ML SUSPENSION UDC PO SCH (08:14)
[2017-04-10] MEDS: ASCORBIC ACID 500 MG TAB PO SCH (08:14)
[2017-04-10] MEDS: MULTIVITAMINS/MINERALS THERAP 1 TAB PO SCH (08:14)
[2017-04-10] MEDS: ASPIRIN 81 MG ENTERIC TAB PO SCH (08:14)
[2017-04-10] MEDS: PANTOPRAZOLE 40MG TAB (PROTONIX) PO SCH (08:15)
[2017-04-10] MEDS: HEPARIN SOD (PORCINE) 5000 UNITS/ML VIAL SC SCH ×2 (08:15→20:18)
--- NOTE | 2017-04-10 08:28 | REP ---
PA and lateral chest: Comparison 04/09/2017. The two right chest tubes are unchanged. There is no pneumothorax. There is effacement right costophrenic angle suggestive of a small right pleural effusion. Left lung is clear. Cardiac size is normal. There is a tunneled indwelling MediPort catheter with the tip in the superior vena cava, entering from the left. There is no pneumothorax or pleural fluid collection on the left. There is an epidural catheter, unchanged. Signed by Arnold Houser MD 04/10/2017 08:19 A
[2017-04-10] MEDS: FENTANYL/BUPIVACAINE/NACL BAG 250 ML EPIDURAL SCH (09:15)
[2017-04-10] MEDS: diphenhydrAMINE 25 MG CAP PO PRN ×2 (09:15→20:18)
[2017-04-10 11:41] VITALS: BP 123/57
--- NOTE | 2017-04-10 13:04 | IPN ---
DATE: 04/10/2017 This is now the first postoperative day for Mrs. Zhao, status post wedge resection of ruptured bleb and a talc pleurodesis. She no longer has an air leak. She was leaking at staple line site yesterday in the recovery room. The air leak has now stopped. She is almost pain free. She walked to x-ray today. Her vital signs show a T-max of 98.9 with a heart rate that ranges that between 96 and 107 in a sinus rhythm. Respiratory rate of 18, without the use of accessory muscles who is 93 to 95% saturated on 3 liters nasal cannula and her blood pressure is ranging between 103/59 to 115/56. Her intake and output the past 24 hours has been recorded as 2070 in and 2163 out for a negativity of 1093 mL. She has put out 253 mL from the chest tube and there is no air leak. Weight today is 90.8 kg compared to 86.1 kg yesterday. On physical examination her lungs show equal breath sounds on either side. There are some occasional rhonchi and rales on the right side, which clear with coughing. Percussion note is full to the diaphragm. Cardiac exam is without murmurs, clicks, gallops or rubs. I cannot feel her point of maximal impulse (PMI). S1 and S2 are normal. Abdomen is soft and nontender. Bowel sounds are positive. There is no hepatomegaly. No costovertebral angle (CVA) tenderness. Extremities show no pretibial edema. No calf tenderness. No differential swelling of the upper extremities. Skin is warm, dry and perfused without cyanosis or mottling including that of the nail beds and the knees. Neck is supple. There is no jugular venous distention. No subcutaneous emphysema. Trachea is midline. Mouth shows her mucous membranes to be pink and moist. Lips and commissures without lesions. No thrush. Eyes show her pupils to be equal, reactive. Extraocular muscles intact. Sclera anicteric. Neuro shows II through XII intact. Gross motor and gross sensation intact. Gait is not tested. Psychiatric shows her to be awake, alert and oriented times three with appropriate mood, affect and conversational. Her white count today is 11.3 with hemoglobin and hematocrit of 12.4 and 37.8, slightly down from 13.4 and 32.3 yesterday in the recovery room. Platelet count is 287, differential shows 82% neutrophils, 4% lymphocytes, 6% monocytes. There are no immature forms or toxic granulations. Her electrolytes today are normal with a BUN and creatinine of 13 and 0.76, a glucose of 95, and a calcium of 8.5. Her chest x-ray today shows her lung fully expanded to the chest wall. Costophrenic angles are sharp and there are no infiltrates other than the radiation changes in the left upper lobe. IMPRESSION: 1. Postoperative day #1, status post wedge resection, talc pleurodesis. 2. Alveolar pleural fistula. Hopefully now resolved with the above operation. 3. Spontaneous pneumothorax right side, resolved. 4. Chronic obstructive pulmonary disease (COPD). 5. Small cell carcinoma, status post chemotherapy and radiation. 6. Bilateral adrenal masses and/or hyperplasia. 7. Sleep apnea. 8. Depression. 9. Hyperlipidemia. PLAN AND DISCUSSION: I will continue her chest tube on suction today. If it is still not leaking and lung is fully expanded to the chest wall, I will discontinue the suction tomorrow. We will discontinue her Browne with the understanding that if she cannot urinate, will have to put it back in secondary to the epidural.
[2017-04-10 15:35] VITALS: BP 109/60
[2017-04-10 19:57] VITALS: BP 123/55
[2017-04-10] MEDS: MONTELUKAST 10 MG TAB PO SCH (20:18)
[2017-04-10] MEDS: ATORVASTATIN 5MG PER 1/2 TABLET PO SCH (20:18)
[2017-04-10] MEDS: lamoTRIgine 100MG TAB PO SCH (20:19)
[2017-04-10] MEDS: VITAMIN D 1,000 INTERNATIONAL UNITS TABLET PO SCH (20:19)
[2017-04-10 23:30] VITALS: BP 121/64
[2017-04-11] MEDS: LEVALBUTEROL 1.25 MG/0.5 ML CONCENTRATE NEB NEB SCH ×4 (02:00→20:15)
[2017-04-11 03:53] VITALS: BP 99/56
[2017-04-11 05:48] LABS: BASO % 0.2 % (0.0-1.0); EOS # 0.9 K/mm3 (0.0-0.50); EOS % 8.5 % (0.0-3.0); LARGE UNSTAINED CELL # 0.2 K/mm3 (0.0-0.4); LARGE UNSTAINED CELL % 2.2 % (0.0-4.0); LYMPH # 0.8 K/mm3 (1.5-4.5); LYMPH % 5.2 % (24.0-44.0); MEAN CORPUSCULAR HGB CONC 33.8 g/dl (32.0-36.5); MEAN CORPUSCULAR VOLUME 100.6 fl (80.0-96.0); MONO # 0.7 K/mm3 (0.0-0.8); MONO % 6.8 % (0.0-5.0); NEUTROPHILS # 7.9 K/mm3 (1.8-7.7); NEUTROPHILS % 77.1 % (36.0-66.0); PLATELET COUNT, AUTOMATED 267 k/mm3 (150-450); RED CELL DISTRIBUTION WIDTH 13.4 % (11.5-14.5); WHITE BLOOD COUNT 10.3 K/mm3 (4.0-10.0)
[2017-04-11] MEDS: SLF 3 ML SYR IV SCH ×3 (05:57→23:19)
[2017-04-11] MEDS: KETOROLAC 30 MG/ML VIAL (J1885) IV SCH ×4 (05:57→23:19)
[2017-04-11 06:07] LABS: ANION GAP 8 MEQ/L (8-16); BLOOD UREA NITROGEN 15 MG/DL (7-18); CALCIUM LEVEL 8.1 MG/DL (8.5-10.1); CARBON DIOXIDE LEVEL 27 MEQ/L (21-32); CHLORIDE LEVEL 102 MEQ/L (98-107); CREATININE FOR GFR 0.64 MG/DL (0.55-1.02); GLOMERULAR FILTRATION RATE > 60.0 (>51); GLUCOSE, FASTING 91 MG/DL (70-105); POTASSIUM SERUM 3.5 MEQ/L (3.5-5.1); SODIUM LEVEL 137 MEQ/L (136-145)
[2017-04-11] MEDS: TIOTROPIUM INHALER/CAPSULE (SPIRIVA) INH SCH (07:13)
[2017-04-11 08:00] VITALS: BP 122/67
[2017-04-11] MEDS: DOCUSATE SODIUM 100 MG CAP PO SCH ×2 (08:14→20:40)
[2017-04-11] MEDS: DULoxetine 30 MG CAP (CYMBALTA) PO SCH (08:14)
[2017-04-11] MEDS: ASPIRIN 81 MG ENTERIC TAB PO SCH (08:15)
[2017-04-11] MEDS: MOM 30ML SUSPENSION UDC PO SCH (08:15)
[2017-04-11] MEDS: MULTIVITAMINS/MINERALS THERAP 1 TAB PO SCH (08:15)
[2017-04-11] MEDS: PANTOPRAZOLE 40MG TAB (PROTONIX) PO SCH (08:15)
[2017-04-11] MEDS: HEPARIN SOD (PORCINE) 5000 UNITS/ML VIAL SC SCH ×2 (08:15→20:40)
[2017-04-11] MEDS: ASCORBIC ACID 500 MG TAB PO SCH (08:15)
[2017-04-11] MEDS: FENTANYL/BUPIVACAINE/NACL BAG 250 ML EPIDURAL SCH (08:18)
--- NOTE | 2017-04-11 08:42 | REP ---
PA and lateral chest: Comparison 04/10/2017. The two right chest tubes are unchanged. There is no pneumothorax. There is a slight effacement of the right costophrenic angle. This could be pleural adhesion or small pleural effusion. This is unchanged. There is a small focal zone of increased density in the right upper lobe compatible with atelectasis. There is increased density inferiorly in the right lung which could be a developing infiltrate. There is a left perihilar mass, unchanged. Central venous catheter is unchanged. Epidural catheter is unchanged. Cardiac size is normal. Signed by Arnold Houser MD 04/11/2017 08:33 A
[2017-04-11 12:00] VITALS: BP 132/68
[2017-04-11] MEDS ORDERED: POTASSIUM CHLORIDE 10 MEQ SR TABLET PO ONE (12:00)
--- NOTE | 2017-04-11 12:56 | IPN ---
DATE: 04/11/2017 This is now the second postoperative day for Mrs. Zhao. There is no air leak. Her pain is being well controlled. She has been ambulatory. Her vital signs show a T-max of 99.0 with a heart rate that ranges between 101 and 97 and is sinus rhythm. Respiratory rate that is constant at 18, who is 93 to 98% saturated on room air and whose blood pressure is ranging between 121/64 to 99/56. Her intake and output over the past 24 hours has been recorded as 1200 in and 3360 out for a negativity of 2100 mL. She has put out 310mL from the chest tube and there is no air leak. She weighs 101 kg yesterday compared to 90.8 kg yesterday. I suspect today's weight is spurious. She is weighing between 87 and 90 kg since she has been in the hospital. On physical examination she has some crackles on the right side. Percussion note is full to the diaphragm. Cardiac exam is without murmurs, clicks, gallops or rubs. I cannot feel her point of maximal impulse (PMI). S1 and S2 are normal. Abdomen is soft and nontender. Bowel sounds are positive. There is no hepatomegaly. No costovertebral angle (CVA) tenderness. Extremities show no pretibial edema. No calf tenderness. No differential swelling of the upper extremities. Skin is warm, dry and perfused without cyanosis or mottling including that of the nail beds and the knees. Neck is supple. There is no jugular venous distention. No subcutaneous emphysema. Trachea is midline. Mouth shows her mucous membranes to be pink and moist. Lips and commissures without lesions. No thrush. Eyes show her pupils to be equal, reactive. Extraocular muscles intact. Sclera nonicteric. Neuro shows II through XII intact along with gross motor and gross sensation intact. Gait is not tested. Psychiatric shows her to be awake, alert and oriented times three with appropriate mood, affect and conversational. Her white count today is 10.3 with hemoglobin and hematocrit of 11.2 and 33.3, down from 12.4 and 37.8 yesterday. Platelet count is 267 and differential shows 77% neutrophils, 5% lymphocytes, 6% monocytes. There are no immature forms or toxic granulations. Her electrolytes are normal today with a marginally low potassium at 3.0. BUN and creatinine of 15 and 0.64, glucose of 91, and a calcium of 8.1. Her chest x-ray shows her lung fully expanded to the chest wall. Costophrenic angles are sharp. Chest tube is in good place. I see no infiltrates either on the lateral or the PA film. There is area posteriorly of atelectasis and compression from the stapling procedure. IMPRESSION: 1. Postoperative day 2, status post multiple wedge resections and talc pleurodesis. 2. Alveolar pleural fistula, hopefully resolved with the above procedure. 3. Spontaneous pneumothorax of the right side, resolved. 4. Chronic obstructive pulmonary disease (COPD). 5. Small cell carcinoma, status post chemoradiation. 6. Bilateral adrenal masses and/or hyperplasia. 7. Sleep apnea. 8. Depression. 9. Hyperlipidemia. PLAN AND DISCUSSION: I will give her some oral potassium today. I will discontinue her suction today. If there is still no air leak and the chest tube output is accetable, I will plan to take her chest tube out tomorrow and send her home the next day.
[2017-04-11 15:40] VITALS: BP 114/60
[2017-04-11 20:31] VITALS: BP 115/59
[2017-04-11] MEDS: lamoTRIgine 100MG TAB PO SCH (20:39)
[2017-04-11] MEDS: ATORVASTATIN 5MG PER 1/2 TABLET PO SCH (20:39)
[2017-04-11] MEDS: MONTELUKAST 10 MG TAB PO SCH (20:40)
[2017-04-11] MEDS: VITAMIN D 1,000 INTERNATIONAL UNITS TABLET PO SCH (20:40)
[2017-04-11] MEDS: diphenhydrAMINE 25 MG CAP PO PRN (20:40)
[2017-04-11 23:16] VITALS: BP 112/67
[2017-04-12] MEDS: LEVALBUTEROL 1.25 MG/0.5 ML CONCENTRATE NEB NEB SCH ×4 (02:00→19:44)
[2017-04-12] MEDS: SLF 3 ML SYR IV SCH ×3 (05:17→21:02)
[2017-04-12] MEDS: KETOROLAC 30 MG/ML VIAL (J1885) IV SCH ×4 (05:17→23:00)
[2017-04-12 05:37] LABS: BASO % 0.4 % (0.0-1.0); EOS # 1.1 K/mm3 (0.0-0.50); EOS % 11.5 % (0.0-3.0); LARGE UNSTAINED CELL # 0.2 K/mm3 (0.0-0.4); LARGE UNSTAINED CELL % 2.5 % (0.0-4.0); LYMPH # 0.8 K/mm3 (1.5-4.5); LYMPH % 6.3 % (24.0-44.0); MEAN CORPUSCULAR HEMOGLOBIN 33.6 pg (27.0-33.0); MEAN CORPUSCULAR VOLUME 101.9 fl (80.0-96.0); MONO # 0.6 K/mm3 (0.0-0.8); MONO % 6.5 % (0.0-5.0); NEUTROPHILS # 6.8 K/mm3 (1.8-7.7); NEUTROPHILS % 72.8 % (36.0-66.0); PLATELET COUNT, AUTOMATED 273 k/mm3 (150-450); RED CELL DISTRIBUTION WIDTH 13.3 % (11.5-14.5); WHITE BLOOD COUNT 9.4 K/mm3 (4.0-10.0)
[2017-04-12 05:39] VITALS: BP 118/56
[2017-04-12 06:01] LABS: ANION GAP 6 MEQ/L (8-16); BLOOD UREA NITROGEN 15 MG/DL (7-18); CALCIUM LEVEL 8.6 MG/DL (8.5-10.1); CARBON DIOXIDE LEVEL 27 MEQ/L (21-32); CHLORIDE LEVEL 108 MEQ/L (98-107); CREATININE FOR GFR 0.55 MG/DL (0.55-1.02); GLOMERULAR FILTRATION RATE > 60.0 (>51); GLUCOSE, FASTING 86 MG/DL (70-105); SODIUM LEVEL 141 MEQ/L (136-145)
[2017-04-12] MEDS: TIOTROPIUM INHALER/CAPSULE (SPIRIVA) INH SCH (07:30)
[2017-04-12 08:00] VITALS: BP 126/61
[2017-04-12] MEDS: DULoxetine 30 MG CAP (CYMBALTA) PO SCH (08:45)
[2017-04-12] MEDS: DOCUSATE SODIUM 100 MG CAP PO SCH ×2 (08:45→21:02)
[2017-04-12] MEDS: ASPIRIN 81 MG ENTERIC TAB PO SCH (08:45)
[2017-04-12] MEDS: PANTOPRAZOLE 40MG TAB (PROTONIX) PO SCH (08:45)
[2017-04-12] MEDS: ASCORBIC ACID 500 MG TAB PO SCH (08:45)
[2017-04-12] MEDS: MULTIVITAMINS/MINERALS THERAP 1 TAB PO SCH (08:45)
[2017-04-12] MEDS: HEPARIN SOD (PORCINE) 5000 UNITS/ML VIAL SC SCH ×2 (08:46→21:02)
[2017-04-12] MEDS: MOM 30ML SUSPENSION UDC PO SCH (08:46)
--- NOTE | 2017-04-12 09:16 | REP ---
TWO VIEW CHEST: Two views of the chest are performed and compared to prior study of 04/11/2017. Two right chest tubes remain in place. I do not see a significant pneumothorax. Basilar lung opacities are unchanged. Left suprahilar opacities are unchanged. Left central venous catheter is again noted. IMPRESSION: Stable exam. Signed by Arnold Mcguire MD 04/12/2017 05:10 P
[2017-04-12 12:00] VITALS: BP 114/56
--- NOTE | 2017-04-12 13:46 | IPN ---
DATE: 04/12/2017 This is now the third postoperative day for Mrs. Zhao. There is no air leak. She is breathing well. Her pain is being well controlled. Her vital signs show a T-max of 97.8 with a heart rate that ranges between 80 and 102 and is sinus rhythm and a respiratory rate that varies between 18 and 12 and who is 96 and 100% saturated on room air and whose blood pressure is ranging between 112/67 to 126/61. Her intake and output over the past 24 hours has been recorded as 600 in and 1785 out for a negativity of 1100 mL. She has put 85 mL from the chest tube and there is no air leak. She weighs 102.1 kg today compared to 101 kg yesterday. On physical examination her lungs show some rhonchi and rales, most of which was cleared with coughing on the right side. Percussion was full to the diaphragm. Left side shows normal vesicular sounds. Cardiac exam is without murmurs, clicks, gallops or rubs. I cannot feel her point of maximal impulse (PMI). S1 and S2 are normal. Abdomen is soft and nontender. Bowel sounds are positive. There is no hepatomegaly. No costovertebral angle (CVA) tenderness. Extremities show no pretibial edema. No calf tenderness. No differential swelling of the upper extremities. Skin is warm, dry and perfused without cyanosis or mottling including that of the nail beds and the knees. Neck is supple. There is no jugular venous distention. No subcutaneous emphysema. Trachea is midline. Mouth shows her mucous membranes to be pink and moist. Lips and commissures without lesions. No thrush. Eyes show her pupils to be equal, reactive. Extraocular muscles intact. Sclera nonicteric. Neuro shows II through XII intact along with gross motor and gross sensation intact. Gait is not tested. Psychiatric shows her to be awake, alert and oriented times three with appropriate mood, affect and conversational. Her white count is now 9.4 with hemoglobin and hematocrit of 11.4 and 34.6, with a platelet count is 273. All those are stables. Differential shows 72% neutrophils, 6% lymphocytes, 6% monocytes. There are no immature forms or toxic granulations. Her electrolytes are normal with a BUN and creatinine of 15 and 0.55 with a glucose of 86, and a calcium of 8.6. Her chest x-ray today shows the lung fully expanded to the chest wall. Chest tube is in good place. There are no infiltrates. Costophrenic angles are sharp. IMPRESSION: 1. Postoperative day 3, status post talc pleurodesis and multiple wedge resections of emphysematous blebs. 2. Alveolar pleural fistula, resolved with the above procedure. 3. Spontaneous pneumothorax of the right side, resolved. 4. Chronic obstructive pulmonary disease (COPD). 5. Small cell carcinoma, status post chemoradiation. 6. Bilateral adrenal masses and/or hyperplasia. 7. Sleep apnea. 8. Depression. 9. Hyperlipidemia. PLAN AND DISCUSSION: I will remove her chest tube today and plan for discharge in the morning. We will discontinue her epidural. Her Browne has already been discontinued.
[2017-04-12 16:00] VITALS: BP 123/71
[2017-04-12 19:57] VITALS: BP 132/82
[2017-04-12] MEDS: ATORVASTATIN 5MG PER 1/2 TABLET PO SCH (21:02)
[2017-04-12] MEDS: lamoTRIgine 100MG TAB PO SCH (21:02)
[2017-04-12] MEDS: VITAMIN D 1,000 INTERNATIONAL UNITS TABLET PO SCH (21:02)
[2017-04-12] MEDS: MONTELUKAST 10 MG TAB PO SCH (21:02)
[2017-04-12 23:59] VITALS: BP 111/59
[2017-04-13] MEDS: LEVALBUTEROL 1.25 MG/0.5 ML CONCENTRATE NEB NEB SCH ×2 (02:00→07:09)
[2017-04-13 03:44] LABS: BASO % 0.5 % (0.0-1.0); EOS # 1.1 K/mm3 (0.0-0.50); EOS % 14.2 % (0.0-3.0); LARGE UNSTAINED CELL # 0.2 K/mm3 (0.0-0.4); LARGE UNSTAINED CELL % 2.5 % (0.0-4.0); LYMPH % 10.5 % (24.0-44.0); MEAN CORPUSCULAR HEMOGLOBIN 34.4 pg (27.0-33.0); MEAN CORPUSCULAR HGB CONC 34.3 g/dl (32.0-36.5); MEAN CORPUSCULAR VOLUME 100.4 fl (80.0-96.0); MONO # 0.6 K/mm3 (0.0-0.8); MONO % 6.9 % (0.0-5.0); NEUTROPHILS # 5.3 K/mm3 (1.8-7.7); NEUTROPHILS % 65.5 % (36.0-66.0); PLATELET COUNT, AUTOMATED 322 k/mm3 (150-450); RED CELL DISTRIBUTION WIDTH 13.5 % (11.5-14.5)
[2017-04-13 04:00] VITALS: BP 111/76
[2017-04-13 04:16] LABS: ANION GAP 7 MEQ/L (8-16); BLOOD UREA NITROGEN 10 MG/DL (7-18); CALCIUM LEVEL 8.6 MG/DL (8.5-10.1); CARBON DIOXIDE LEVEL 26 MEQ/L (21-32); CHLORIDE LEVEL 105 MEQ/L (98-107); CREATININE FOR GFR 0.59 MG/DL (0.55-1.02); GLOMERULAR FILTRATION RATE > 60.0 (>51); GLUCOSE, FASTING 98 MG/DL (70-105); POTASSIUM SERUM 3.8 MEQ/L (3.5-5.1); SODIUM LEVEL 138 MEQ/L (136-145)
[2017-04-13] MEDS: KETOROLAC 30 MG/ML VIAL (J1885) IV SCH ×2 (05:00→11:00)
[2017-04-13] MEDS: SLF 3 ML SYR IV SCH (06:52)
[2017-04-13] MEDS: TIOTROPIUM INHALER/CAPSULE (SPIRIVA) INH SCH (07:09)
[2017-04-13 08:00] VITALS: BP 124/71
[2017-04-13] MEDS: ASCORBIC ACID 500 MG TAB PO SCH (08:45)
[2017-04-13] MEDS: DULoxetine 30 MG CAP (CYMBALTA) PO SCH (08:45)
[2017-04-13] MEDS: DOCUSATE SODIUM 100 MG CAP PO SCH (08:45)
[2017-04-13] MEDS: ASPIRIN 81 MG ENTERIC TAB PO SCH (08:45)
[2017-04-13] MEDS: MULTIVITAMINS/MINERALS THERAP 1 TAB PO SCH (08:45)
[2017-04-13] MEDS: HEPARIN SOD (PORCINE) 5000 UNITS/ML VIAL SC SCH (08:46)
[2017-04-13] MEDS: PANTOPRAZOLE 40MG TAB (PROTONIX) PO SCH (08:46)
[2017-04-13] MEDS: MOM 30ML SUSPENSION UDC PO SCH (08:46)
[2017-04-13] MEDS ORDERED: ALB2.5NEB INH (11:49)
--- NOTE | 2017-04-14 05:58 | DSES ---
DATE OF ADMISSION: 04/02/2017 DATE OF DISCHARGE: 04/13/2017 DISCHARGE DIAGNOSES: Alveolar pleural fistula. Spontaneous pneumothorax. Chronic obstructive pulmonary disease (COPD). Small cell carcinoma status post chemoradiation. Bilateral adrenal mass and/or hyperplasia. Sleep apnea. Depression. Hyperlipidemia. Postoperative status post talc pleurodesis and multiple wedge resections of emphysematous blebs. HOSPITAL COURSE: Patient is a 56-year-old white female who carries a diagnosis of small cell carcinoma 03/2015 and undergone radiation and chemotherapy. She has completed chemotherapy and she felt well until a week prior to admission when she felt a bit short of breath. An infiltrate was seen and she was seen in urgent care that prescribed antibiotics. On the morning of admission, she awoke and was acutely short of breath. She therefore sought medical attention. She had some cough with yellow-green sputum production but there has been no fever, chills or sweats. She went to the emergency room and she was found to have a large pneumothorax. She had originally undergone a CT looking for a pulmonary embolism and no pulmonary embolus was found. Chest tube was immediately placed. Over the next 5-6 days, she continues to leak. She continued to have an air leak and an alveolar and/or bronchopleural fistula. Finally she was taken to the operating room where underwent multiple wedge resections of emphysematous blebs with one bleb looking as if it had ruptured. She had a benign postoperative course. She immediately had an air leak from the staple lines the night of surgery but by the first day, there was no air leak. During the procedure, she also had a talc pleurodesis with a talc slurry. By postoperative day #3, her chest tubes had been removed and there was no air leak and her lung was fully expanded to the chest wall on her discharge chest x-ray. Her discharge hemoglobin and hematocrit are 11.4 and 33.1 with a discharge platelet count of 322. Discharge electrolytes are normal with a BUN and creatinine of 10 and 0.59. She will return to see me in 1 week with a chest x-ray and postoperative followup. She is being discharged today on her home medications which include: - Ventolin two puffs every 4 hours as needed shortness of breath - albuterol sulfate which has been renewed as 2.5 mg nebulized and inhaled - ascorbic acid 500 mg daily - aspirin 81 mg daily - atorvastatin 5 mg daily at bedtime - vitamin D 2000 units daily at bedtime - Valium 5 mg as needed anxiety daily at bedtime - Cymbalta 60 mg daily - fish oil 1000 mg twice daily - hydroxyzine 25 mg as needed itching - Lamictal 400 mg daily at bedtime - Singulair 10 mg daily at bedtime - multivitamins one tablet daily - Spiriva one inhalation daily I am stopping her doxycycline that she was placed on at the urgent care. She has also been recommended to take Tylenol for pain control. She has very little pain on discharge.
--- NOTE | 2017-04-16 12:57 | REP ---
CHEST, TWO VIEWS: Two views of the chest are performed. The study is submitted to me for dictation 04/16/2017 for reasons unknown to me. Comparison made with prior study of 04/12/2017. Two right chest tubes have been removed. No definite pneumothorax is seen. Mild streaky right basilar opacities are stable. Mild left basilar and perihilar opacities are stable. Left central venous catheter is again seen. Cardiomediastinal silhouette is unchanged. IMPRESSION: Removal of two right chest tubes. No definite pneumothorax. Stable bilateral parenchymal opacities. Signed by Arnold Mcguire MD 04/16/2017 05:22 P
== END 2017-04-13 12:38 | disposition home or self-care (01) | DRG 120 ==
LOC: M ED 10:49 → M ED INP 11:39 → M PCU 12:05
PROVIDERS: ADMIT Thoracic Surgery (Cardiothoracic Vascular Surgery); ATTEND Thoracic Surgery (Cardiothoracic Vascular Surgery)
PROC: 0W9930Z Drainage of Right Pleural Cavity with Drainage Device, Percutaneous Approach (ICD-10-PCS; 2017-04-02)
PROC: 0BBD4ZZ Excision of Right Middle Lung Lobe, Percutaneous Endoscopic Approach (ICD-10-PCS; principal; 2017-04-09 07:30)
DX: J93.83 Other pneumothorax (principal); J86.0 Pyothorax with fistula; E27.8 Other specified disorders of adrenal gland; J44.9 Chronic obstructive pulmonary disease, unspecified; E78.5 Hyperlipidemia, unspecified; F32.9 Major depressive disorder, single episode, unspecified; G47.30 Sleep apnea, unspecified; Z79.899 Other long term (current) drug therapy; Z79.82 Long term (current) use of aspirin; F41.9 Anxiety disorder, unspecified; Z87.891 Personal history of nicotine dependence; Z85.118 Personal history of other malignant neoplasm of bronchus and lung; J93.82 Other air leak

== ENCOUNTER → 2017-04-19 | Outpatient (CLI) | payer BC ==
[~2017-04-19] MED LIST changes: +ALB2.5NEB INH; +ASPI1TAB PO; +ATOR1TAB19 PO; +DOXY100T PO; -PANTOPRAZOLE 40MG TAB (PROTONIX) PO SCH
--- NOTE | 2017-04-20 00:38 | REP ---
Clinical: COPD. Technique: PA and lateral. Comparison: 04/13/2017. Findings: [id number] identified with tip in the SVC. Mediastinum and cardiac silhouette are stable. Left paramediastinal surgical clips and adjacent super mediastinal mass-like opacity is again noted. Scattered parenchymal changes remain stable. No new acute consolidation, obvious effusion, or pneumothorax. Impression: Stable bilateral pleuroparenchymal changes. Left suprahilar mass / consolidation. Signed by Gutierrez Jenkins MD 04/20/2017 12:30 A
== END ==
LOC: M SMT 08:22
PROVIDERS: ATTEND Thoracic Surgery (Cardiothoracic Vascular Surgery)
DX: J44.9 Chronic obstructive pulmonary disease, unspecified (principal)

== ENCOUNTER → 2017-05-05 | Outpatient (CLI) | payer BC ==
[~2017-05-05] MED LIST changes: +HYDR-3363 PO; -HYDR25T PO; +LAMI1TAB9 PO; -LAMI200T3 PO; -VITA-130 PO; +VITA500T PO
--- NOTE | 2017-05-08 06:40 | RADONC ---
RADIATION ONCOLOGY FOLLOWUP NOTE DATE: 05/05/2017 CHART NUMBER: [id number] DIAGNOSIS: Small cell lung carcinoma. STAGE: Limited. ECOG PERFORMANCE STATUS: 0 FOLLOWUP NOTE: Ms. Zhao is a delightful 56-year-old white female with the diagnosis of a limited stage small cell lung carcinoma who is presenting to us today for routine followup visit almost 1 year and 10 months post completion of prophylactic cranial irradiation and 2 years and 1 month post completion of thoracic consolidative radiation. The patient presents today reporting that she is doing extremely well. She has no complaints at this time related to her radiation therapy or disease. Apparently, the patient had a spontaneous pneumothorax in early April and was hospitalized from April 02 through April 13. She has done well since then. The patient is having no shortness of breath, difficulty swallowing, bone pain, headaches, neurological problems, pain or discomfort of any type. Her energy levels are good and overall she feels quite well. She is working. REVIEW OF SYSTEMS: The patient's review of systems is noncontributory. She denies nausea, vomiting, fevers, chills, night sweats, diplopia, headaches, anxiety or depression, anorexia, weight loss, visual disturbances, chest pain, urinary or bowel difficulties, bone pain, or neurological problems. PHYSICAL EXAMINATION: The patient is a well-developed, well-nourished white female in no acute distress. HEENT exam is normocephalic, atraumatic. Extraocular movements are intact. There is no palpable cervical, supraclavicular, infraclavicular, axillary, or inguinal lymphadenopathy present. Lungs are clear to auscultation and percussion. Heart has a regular rate and rhythm. Abdomen is benign with no hepatosplenomegaly, masses, or tenderness. Skeletal examination reveals no tenderness to pressure or percussion of the bony skeleton. Extremities reveal no clubbing, cyanosis, or edema. Neurologic exam is grossly intact, as is the remainder of the physical examination. ASSESSMENT: The patient is clinically CHINTAN at this time and will be seen by us again in 6 months for further followup. She will also continue to be followed by her other physicians as well. cc: Nola Rizo MD, FACP MD Jama Andrews, DO FCCP
== END ==
LOC: M ONCR 09:21
PROVIDERS: ATTEND Radiology Radiation Oncology
DX: Z09 Encounter for follow-up examination after completed treatment for conditions other than malignant neoplasm (principal); Z85.118 Personal history of other malignant neoplasm of bronchus and lung

== ENCOUNTER 2017-08-12 13:06 | Emergency (ER) | payer BC ==
[~2017-08-12] VITALS: Ht 172.7 cm; Wt 89.1 kg
[2017-08-12] MEDS ORDERED: NS 1,000 ML IV ONE (14:45)
--- NOTE | 2017-08-12 15:05 | REP ---
CT Head without contrast HISTORY: Fall COMPARISON: None Areas of decreased attenuation are present in the periventricular white matter. This represents small-vessel ischemic disease. There is no intraparenchymal hemorrhage, acute infarct, mass or midline shift. The ventricular system and cortical sulci are dilated consistent with minimal volume loss. There is no extra cerebral collection. There is no fracture. The visualized sinuses are clear. IMPRESSION: 1. Small vessel ischemic disease. 2. Minimal volume loss. Signed by Neptali Fay MD 08/12/2017 02:57 P
[2017-08-12 15:29] LABS: BASO # 0.1 10^3/uL (0.0-0.2); EOS # 0.6 10^3/uL (0.0-0.50); IMMATURE GRANULOCYTE % 0.6 % (0-0); LYMPH # 1.2 10^3/uL (1.5-4.5); LYMPH % 18.1 % (24.0-44.0); MEAN CORPUSCULAR HEMOGLOBIN 32.5 pg (27.0-33.0); MEAN CORPUSCULAR VOLUME 98.3 fl (80.0-96.0); MONO # 0.6 10^3/uL (0.0-0.8); MONO % 8.5 % (0.0-5.0); NEUTROPHILS # 4.3 10^3/uL (1.8-7.7); NEUTROPHILS % 62.8 % (36.0-66.0); PLATELET COUNT, AUTOMATED 253 10^3/uL (150-450); RED CELL DISTRIBUTION WIDTH 12.7 % (11.5-14.5); WHITE BLOOD COUNT 6.9 10^3/uL (4.0-10.0)
[2017-08-12 15:46] VITALS: BP 125/75
[2017-08-12 15:53] LABS: ALBUMIN 3.6 GM/DL (3.2-5.2); ALBUMIN/GLOBULIN RATIO 1.16 (1.00-1.93); ALKALINE PHOSPHATASE 91 U/L (45-117); ALT/SGPT 24 U/L (12-78); ANION GAP 5 MEQ/L (8-16); AST/SGOT 16 U/L (15-37); BILIRUBIN,DIRECT 0.1 MG/DL (0.0-0.2); BILIRUBIN,TOTAL 0.3 MG/DL (0.2-1.0); BLOOD UREA NITROGEN 16 MG/DL (7-18); CALCIUM LEVEL 9.6 MG/DL (8.5-10.1); CARBON DIOXIDE LEVEL 31 MEQ/L (21-32); CHLORIDE LEVEL 104 MEQ/L (98-107); CREATININE FOR GFR 0.82 MG/DL (0.55-1.02); GLOMERULAR FILTRATION RATE > 60.0 (>51); GLUCOSE, FASTING 105 MG/DL (70-105); MAGNESIUM LEVEL 2.2 MG/DL (1.8-2.4); POTASSIUM SERUM 4.3 MEQ/L (3.5-5.1); SODIUM LEVEL 140 MEQ/L (136-145); TOTAL PROTEIN 6.7 GM/DL (6.4-8.2)
== END 2017-08-12 16:15 | disposition home or self-care (01) ==
LOC: M ED 13:06
DX: S09.90XA Unspecified injury of head, initial encounter (principal); R41.3 Other amnesia; W01.10XA Fall on same level from slipping, tripping and stumbling with subsequent striking against unspecified object, initial encounter; Y92.9 Unspecified place or not applicable; Y93.9 Activity, unspecified; Y99.9 Unspecified external cause status; C34.90 Malignant neoplasm of unspecified part of unspecified bronchus or lung; I10 Essential (primary) hypertension; E78.5 Hyperlipidemia, unspecified; J45.909 Unspecified asthma, uncomplicated; G47.33 Obstructive sleep apnea (adult) (pediatric); E03.9 Hypothyroidism, unspecified; F41.9 Anxiety disorder, unspecified; F31.9 Bipolar disorder, unspecified; M54.9 Dorsalgia, unspecified; Z92.21 Personal history of antineoplastic chemotherapy; Z92.3 Personal history of irradiation; I67.9 Cerebrovascular disease, unspecified; Z79.82 Long term (current) use of aspirin; Z79.899 Other long term (current) drug therapy; Z88.2 Allergy status to sulfonamides

== ENCOUNTER → 2017-11-10 | Outpatient (CLI) | payer BC ==
[2017-11-10 10:51] LABS: GLOMERULAR FILTRATION RATE > 60.0 (>51)
[2017-11-10 10:51] LABS: BLOOD UREA NITROGEN 15 MG/DL (7-18)
== END ==
LOC: M ONCR 09:23
DX: C34.02 Malignant neoplasm of left main bronchus (principal); C79.31 Secondary malignant neoplasm of brain
CPT/HCPCS: 82565

== ENCOUNTER → 2017-11-15 | Outpatient (CLI) | payer BC ==
[2017-11-15 07:54] LABS: BASO # 0.1 10^3/uL (0.0-0.2); BASO % 0.6 % (0.0-1.0); EOS # 0.1 10^3/uL (0.0-0.50); EOS % 1.2 % (0.0-3.0); HEMATOCRIT 38.7 % (36.0-47.0); IMMATURE GRANULOCYTE # 0.1 10^3/uL (0-0); IMMATURE GRANULOCYTE % 1.4 % (0-0); LYMPH # 0.8 10^3/uL (1.5-4.5); LYMPH % 9.6 % (24.0-44.0); MEAN CORPUSCULAR HEMOGLOBIN 32.6 pg (27.0-33.0); MEAN CORPUSCULAR HGB CONC 33.6 g/dl (32.0-36.5); MONO % 11.3 % (0.0-5.0); NEUTROPHILS # 6.5 10^3/uL (1.8-7.7); NEUTROPHILS % 75.9 % (36.0-66.0); PLATELET COUNT, AUTOMATED 323 10^3/uL (150-450); RED BLOOD COUNT 3.99 10^6/uL (4.00-5.40); WHITE BLOOD COUNT 8.5 10^3/uL (4.0-10.0)
[2017-11-15 08:30] LABS: ALBUMIN 3.2 GM/DL (3.2-5.2); ALBUMIN/GLOBULIN RATIO 0.86 (1.00-1.93); ALKALINE PHOSPHATASE 93 U/L (45-117); ALT/SGPT 17 U/L (12-78); ANION GAP 9 MEQ/L (8-16); AST/SGOT 14 U/L (7-37); BILIRUBIN,TOTAL 0.6 MG/DL (0.2-1.0); BLOOD UREA NITROGEN 12 MG/DL (7-18); CALCIUM LEVEL 8.9 MG/DL (8.5-10.1); CARBON DIOXIDE LEVEL 26 MEQ/L (21-32); CHLORIDE LEVEL 107 MEQ/L (98-107); CHOLESTEROL LEVEL 165 MG/DL (<200); CHOLESTEROL RISK RATIO 2.844 (<5); CPK CREATINE PHOSPHOKINASE 82 U/L (26-192); CREATININE FOR GFR 0.67 MG/DL (0.55-1.02); GLOMERULAR FILTRATION RATE > 60.0 (>51); GLUCOSE, FASTING 99 MG/DL (70-105); HDL CHOLESTEROL 58 MG/DL (>40); LDL CHOLESTEROL 94.2 MG/DL (<100); NON-HDL-C 107 MG/DL; SODIUM LEVEL 142 MEQ/L (136-145); TOTAL PROTEIN 6.9 GM/DL (6.4-8.2); TRIGLYCERIDES LEVEL 64 MG/DL (<150)
== END ==
LOC: M LAB 07:12
DX: I65.23 Occlusion and stenosis of bilateral carotid arteries (principal); R06.02 Shortness of breath; I10 Essential (primary) hypertension; I73.9 Peripheral vascular disease, unspecified; R94.31 Abnormal electrocardiogram [ECG] [EKG]; J44.9 Chronic obstructive pulmonary disease, unspecified
CPT/HCPCS: 82550

== ENCOUNTER → 2017-11-17 | Outpatient (CLI) | payer BC ==
[~2017-11-17] MED LIST changes: -ALB2.5NEB INH; -ALBU17IN INH; -ASPI1TAB PO; -ATOR1TAB19 PO; -CYMB60CA3 PO; -DOXY100T PO; -FISH1000 PO; +GASTROGRAFIN SOLUTION 30ML (Q9963) As Ordered; -HYDR-3363 PO; -IBUPOTC PO; +ISOVUE-370 76% 100ML VIAL (Q9967) As Ordered; -LAMI1TAB9 PO; -LEVO50TA5 PO; -LIPI20TA PO; -MULT1TAB10 PO; -NORCOTAB PO; -SING10TA32 PO; -TIOT18INH INH; -VALI5TAB PO; -VALS1TAB46 PO; -VITA200038 PO; -VITA500T PO; -advair INH; -allegra OR; -flonase; -proventil inhaler INH
== END ==
LOC: M RAD 08:48
DX: C34.90 Malignant neoplasm of unspecified part of unspecified bronchus or lung (principal)
CPT/HCPCS: Q9963

== ENCOUNTER → 2018-01-20 | Outpatient (REF) | payer BC ==
[2018-01-20 14:40] LABS: ERYTHROCYTE SEDIMENTATION RATE 13 mm/hr (0-30)
[2018-01-20 14:41] LABS: FOLATE 19.8 NG/ML; VITAMIN B12 LEVEL 539 PG/ML
[2018-01-20 14:42] LABS: ESTIMATED AVERAGE GLUCOSE 103 MG/DL (60-110); HEMOGLOBIN A1c 5.2 %
[2018-01-20 14:48] LABS: FREE T4 0.83 NG/DL (0.76-1.46); RHEUMATOID FACTOR QUANT < 10.0 IU/ML (<15.0); TOTAL PROTEIN 7.3 GM/DL (6.4-8.2)
[2018-01-24 14:11] LABS: ALBUMIN 4.32 GM/DL (3.29-5.55); ALBUMIN % 59.2 % (55.8-66.1); ALPHA-1-GLOBULIN % 4.5 % (2.9-4.9); ALPHA-1-GLOBULINS 0.33 GM/DL (0.17-0.41); ALPHA-2-GLOBULINS 0.77 GM/DL (0.42-0.99); ALPHA-2-GLOBULINS % 10.5 % (7.1-11.8); BETA-1-GLOBULINS 0.46 GM/DL (0.28-0.60); BETA-1-GLOBULINS % 6.3 % (4.7-7.2); BETA-2-GLOBULINS 0.31 GM/DL (0.19-0.55); BETA-2-GLOBULINS % 4.3 % (3.2-6.5); GAMMA GLOBULIN % 15.2 % (11.1-18.8); GAMMA GLOBULINS 1.11 GM/DL (0.65-1.58)
[2018-01-25 00:07] LABS: ANTINUCLEAR ANTIBODIES DIRECT Negative (Negative); METHYLMALONIC ACID 119 nmol/L (0-378); VITAMIN B1 LEVEL WHOLE BLOOD 119.7 nmol/L (66.5-200.0); VITAMIN B6,PYRIDOXAL PHOSPHATE 14.7 ug/L (2.0-32.8); VITAMIN E LEVEL 11.4 mg/L (5.3-16.8)
== END ==
LOC: M LABNEURO 09:43
DX: R51 Headache (principal); R20.2 Paresthesia of skin; R26.81 Unsteadiness on feet; Z13.29 Encounter for screening for other suspected endocrine disorder
CPT/HCPCS: 82746

== ENCOUNTER → 2018-01-27 | Outpatient (REF) | payer BC | LOC: M LAB REF 21:52 | DX: N39.0 Urinary tract infection, site not specified (principal) | CPT/HCPCS: 87086 ==

== ENCOUNTER → 2018-05-18 | Outpatient (CLI) | payer BC | LOC: M ONCR 09:16 | DX: C34.02 Malignant neoplasm of left main bronchus (principal); C79.31 Secondary malignant neoplasm of brain | CPT/HCPCS: G0463 ==

== ENCOUNTER → 2018-05-25 | Outpatient (CLI) | payer BC ==
[~2018-05-25] MED LIST changes: -GASTROGRAFIN SOLUTION 30ML (Q9963) As Ordered
== END ==
LOC: M RAD 16:14
DX: C34.90 Malignant neoplasm of unspecified part of unspecified bronchus or lung (principal)
CPT/HCPCS: Q9967

== ENCOUNTER → 2018-09-19 | Outpatient (CLI) | payer BC | LOC: M SMT 10:28 | DX: J98.4 Other disorders of lung (principal); Z97.8 Presence of other specified devices; Z85.118 Personal history of other malignant neoplasm of bronchus and lung | CPT/HCPCS: 71046 ==

== ENCOUNTER 2018-09-26 11:43 | Day surgery (SDC) | payer BC ==
[~2018-09-26 11:43] MED LIST changes: -ISOVUE-370 76% 100ML VIAL (Q9967) As Ordered; +LIDOCAINE 1% MDV 20ML VIAL SQ
[2018-09-26] MEDS ORDERED: ceFAZolin 2 GM/D5W 50 ML IV BAG (J0690 PER 500MG) As Ordered (11:53)
[2018-09-26] MEDS ORDERED: LIDOCAINE 2% INJ 100 MG/5 ML SDV (FOR ANES.) As Ordered (11:55)
[2018-09-26] MEDS ORDERED: ONDANSETRON 4MG/2ML VIAL (J2405) As Ordered (11:55)
[2018-09-26] MEDS ORDERED: PROPOFOL 200 MG/20 ML VIAL As Ordered ×2 (11:55)
[2018-09-26] MEDS ORDERED: MIDAZOLAM INJ 2 MG/2 ML VIAL (J2250) As Ordered (11:56)
[2018-09-26] MEDS ORDERED: KETAMINE HCL 200 MG/20 ML VIAL As Ordered (11:56)
[2018-09-26] MEDS ORDERED: fentaNYL 100 MCG/2 ML INJECTION (J3010) As Ordered (11:56)
[2018-09-26] MEDS: LR 1,000 ML IV (12:00)
[2018-09-26] MEDS: MUPIROCIN 2% OINT 22 GM TUBE TOP (12:11)
[2018-09-26] MEDS: BUPIVACAINE LIPOSOME/PF 1.3% 20ML VIAL (13.3MG/ML)(EXPAREL)(C9290 PER1MG) As Ordered (12:49)
[2018-09-26] MEDS ORDERED: PERCOCET 5MG/325MG TAB PO (13:45)
[2018-09-26] MEDS ORDERED: LR 1,000 ML IV (13:45)
[2018-09-26] MEDS ORDERED: METOCLOPRAMIDE INJ 10MG/2ML VIAL (J2765) IV (13:45)
[2018-09-26] MEDS ORDERED: fentaNYL 100 MCG/2 ML INJECTION (J3010) IV (13:45)
[2018-09-26] MEDS ORDERED: ONDANSETRON 4MG/2ML VIAL (J2405) IV (13:45)
== END 2018-09-26 14:40 | disposition home or self-care (01) ==
LOC: M SDC 11:43
DX: Z45.2 Encounter for adjustment and management of vascular access device (principal); J43.2 Centrilobular emphysema; G47.33 Obstructive sleep apnea (adult) (pediatric); F41.9 Anxiety disorder, unspecified; F32.9 Major depressive disorder, single episode, unspecified; E78.5 Hyperlipidemia, unspecified; L30.9 Dermatitis, unspecified; J45.909 Unspecified asthma, uncomplicated; R06.83 Snoring; Z88.2 Allergy status to sulfonamides; Z79.899 Other long term (current) drug therapy; Z79.82 Long term (current) use of aspirin; Z85.118 Personal history of other malignant neoplasm of bronchus and lung; Z92.21 Personal history of antineoplastic chemotherapy; Z92.3 Personal history of irradiation; Z90.710 Acquired absence of both cervix and uterus
CPT/HCPCS: 36590

== ENCOUNTER → 2018-10-27 | Outpatient (CLI) | payer BC ==
[~2018-10-27] MED LIST changes: +ALB2.5NEB INH; +ALBU17IN INH; +ASPI1TAB PO; +ATOR1TAB19 PO; +CYMB60CA3 PO; +DOXY100T PO; +FISH1000 PO; +FISH1200 PO; +HYDR-3363 PO; +IBUPOTC PO; +LAMI1TAB9 PO; +LAMO150T2 PO; +LEVO50TA5 PO; -LIDOCAINE 1% MDV 20ML VIAL SQ; +LIPI20TA PO; +MULT1TAB10 PO; +NORCOTAB PO; +SING10TA32 PO; +TIOT18INH INH; +VALI5TAB PO; +VALS1TAB46 PO; +VENTAER INH; +VITA200038 PO; +VITA500T PO; +advair INH; +allegra OR; +flonase; +proventil inhaler INH
--- NOTE | 2018-10-27 08:11 | REP ---
Clinical: Wheezing. History of lung cancer. Technique: Axial noncontrast images from the thoracic inlet to the upper abdomen with coronal and sagittal re-formations. Comparison: 05/25/2018. Findings: Chronic area of consolidation with air bronchograms and calcified lymph nodes along with small surgical clips extends from the left hilum to the posteromedial left upper lung zone with surrounding fibrosis and oligemia. Findings remain stable and are consistent with postsurgical and postradiation type change. Diffuse moderate emphysematous changes with scattered scarring as well as subtle non solid nodular densities primarily noted inseparable from the right major and minor fissures remain unchanged. Chronic bronchiectasis involving the medial right middle lobe is also identified and essentially stable. No new, acute area of consolidation, significant nodule or mass lesion identified. No pleural effusion. Pneumothorax. Tracheobronchial tree is relatively patent. No obvious acute adenopathy. The mediastinum demonstrates atherosclerotic changes to the thoracic aorta without aneurysm. No cardiomegaly or pericardial effusion. Surrounding musculoskeletal structures are intact. Limited evaluation of the upper abdomen demonstrates stable bilateral no atypical adrenal adenomas and left renal cyst. Impression: 1. Chronic changes including postsurgical and postradiation changes involving the medial left upper lung zone with chronic partial collapse as well as scattered scarring, small non solid nodules, and chronic bronchiectasis to the right middle lobe. 2. Moderate emphysematous disease. 3. No acute mediastinal or pleuroparenchymal process appreciated. 4. Stable bilateral atypical adrenal adenomas and left renal hypodensity consistent with cyst. Electronically Signed by Gutierrez Jenkins MD 10/27/2018 08:03 A
== END ==
LOC: M RAD 07:31
PROVIDERS: ATTEND Internal Medicine Pulmonary Disease
DX: R06.2 Wheezing (principal); J43.9 Emphysema, unspecified; D35.01 Benign neoplasm of right adrenal gland; D35.02 Benign neoplasm of left adrenal gland; J98.4 Other disorders of lung

== ENCOUNTER 2018-12-05 17:56 | Emergency (ER) | payer BC ==
[~2018-12-05] VITALS: Ht 172.7 cm; Wt 100.0 kg
[2018-12-05 18:57] LABS: BASO # 0.1 10^3/uL (0.0-0.2); BASO % 1.4 % (0.0-1.0); EOS # 0.6 10^3/uL (0.0-0.50); EOS % 8.4 % (0.0-3.0); HEMATOCRIT 42.7 % (36.0-47.0); HEMOGLOBIN 13.8 g/dl (12.0-15.5); LYMPH # 1.1 10^3/uL (1.5-4.5); LYMPH % 17.2 % (24.0-44.0); MEAN CORPUSCULAR HEMOGLOBIN 32.2 pg (27.0-33.0); MEAN CORPUSCULAR HGB CONC 32.3 g/dl (32.0-36.5); MEAN CORPUSCULAR VOLUME 99.5 fl (80.0-96.0); MONO # 0.6 10^3/uL (0.0-0.8); MONO % 8.4 % (0.0-5.0); NEUTROPHILS # 4.2 10^3/uL (1.8-7.7); NEUTROPHILS % 63.5 % (36.0-66.0); PLATELET COUNT, AUTOMATED 285 10^3/uL (150-450); RED BLOOD COUNT 4.29 10^6/uL (4.00-5.40); WHITE BLOOD COUNT 6.6 10^3/uL (4.0-10.0)
[2018-12-05 19:10] LABS: ALBUMIN 3.8 GM/DL (3.2-5.2); ALT/SGPT 24 U/L (12-78); BILIRUBIN,DIRECT 0.1 MG/DL (0.0-0.2); BILIRUBIN,TOTAL 0.3 MG/DL (0.2-1.0); BLOOD UREA NITROGEN 20 MG/DL (7-18); CALCIUM LEVEL 9.4 MG/DL (8.5-10.1); CARBON DIOXIDE LEVEL 28 MEQ/L (21-32); CHLORIDE LEVEL 103 MEQ/L (98-107); CPK CREATINE PHOSPHOKINASE 242 U/L (26-192); CREATININE FOR GFR 0.93 MG/DL (0.55-1.30); GLOMERULAR FILTRATION RATE > 60.0 (>51); GLUCOSE, FASTING 114 MG/DL (70-100); NT-PRO BNP 336 PG/ML (<125); POTASSIUM SERUM 4.1 MEQ/L (3.5-5.1); SODIUM LEVEL 141 MEQ/L (136-145); TROPONIN I < 0.02 NG/ML (< 0.10)
--- NOTE | 2018-12-05 20:16 | ECGEPIP ---
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
[2018-12-05 20:30] VITALS: BP 154/71
[2018-12-05] MEDS ORDERED: IPRATROPIUM 0.5MG/ALBUTEROL 2.5MG INH SOL UD 3ML (DUONEB)(J7620) NEB PRN (20:30)
--- NOTE | 2018-12-05 21:17 | REP ---
CHEST, TWO VIEWS: Two views of the chest are performed and compared with prior study of 09/19/2018. Postsurgical changes and scarring on the left are stable. No definite superimposed acute infiltrate is seen. Heart is not enlarged. Mediastinal silhouette is unchanged. Metallic clips are seen in the left perihilar region. IMPRESSION: Chronic pleural and parenchymal opacities on the left are stable with no definite superimposed acute infiltrate. Electronically Signed by Arnold Mcguire MD 12/07/2018 01:30 P
== END 2018-12-05 21:07 | disposition left against medical advice (07) ==
LOC: M ED 17:56
DX: R06.02 Shortness of breath (principal); Z53.21 Procedure and treatment not carried out due to patient leaving prior to being seen by health care provider

== ENCOUNTER 2018-12-07 14:52 | Emergency (ER) | payer BC ==
[~2018-12-07] VITALS: Ht 172.7 cm; Wt 100.0 kg
[2018-12-07] MEDS ORDERED: SPIR1CAP INH (15:02)
[2018-12-07] MEDS ORDERED: ALBU83IN INH (15:02)
[2018-12-07] MEDS ORDERED: ADV250INH INH (15:02)
[2018-12-07 15:38] LABS: BASO # 0.1 10^3/uL (0.0-0.2); BASO % 1.4 % (0.0-1.0); EOS # 0.7 10^3/uL (0.0-0.50); EOS % 9.6 % (0.0-3.0); HEMATOCRIT 41.6 % (36.0-47.0); HEMOGLOBIN 13.5 g/dl (12.0-15.5); LYMPH # 1.1 10^3/uL (1.5-4.5); LYMPH % 14.8 % (24.0-44.0); MEAN CORPUSCULAR HEMOGLOBIN 32.7 pg (27.0-33.0); MEAN CORPUSCULAR HGB CONC 32.5 g/dl (32.0-36.5); MEAN CORPUSCULAR VOLUME 100.7 fl (80.0-96.0); MONO # 0.6 10^3/uL (0.0-0.8); MONO % 7.6 % (0.0-5.0); NEUTROPHILS # 4.9 10^3/uL (1.8-7.7); NEUTROPHILS % 65.8 % (36.0-66.0); PLATELET COUNT, AUTOMATED 263 10^3/uL (150-450); RED BLOOD COUNT 4.13 10^6/uL (4.00-5.40); WHITE BLOOD COUNT 7.4 10^3/uL (4.0-10.0)
[2018-12-07] MEDS ORDERED: methylPREDNISolone INJ 125 MG/2 ML VIAL (J2930) IV ONE (15:45)
[2018-12-07] MEDS: IPRATROPIUM 0.5MG/ALBUTEROL 2.5MG INH SOL UD 3ML (DUONEB)(J7620) NEB PRN ×3 (15:55→18:12)
[2018-12-07 16:10] LABS: INFLUENZA A AMPLIFICATION NEGATIVE (NEGATIVE); INFLUENZA B AMPLIFICATION NEGATIVE (NEGATIVE)
[2018-12-07 16:12] LABS: ABG BASE EXCESS 2.5 (-2.0-2.0); ABG O2 SATURATION 91.7 % (95.0-99.0); ABG PARTIAL PRESSURE CO2 46.5 mmHg (35.0-45.0); ABG PARTIAL PRESSURE O2 65.5 mmHg (75.0-100.0); ABG STANDARD HCO3 26.5 MEQ/L (22.0-26.0); ABG TOTAL CO2 29.4 MEQ/L (22.0-29.0); ABG pH (ARTERIAL) 7.397 UNITS (7.350-7.450)
[2018-12-07 16:14] VITALS: O2SAT 90
[2018-12-07 16:16] LABS: ALBUMIN 3.6 GM/DL (3.2-5.2); ALT/SGPT 23 U/L (12-78); BILIRUBIN,DIRECT 0.1 MG/DL (0.0-0.2); BILIRUBIN,TOTAL 0.4 MG/DL (0.2-1.0); BLOOD UREA NITROGEN 14 MG/DL (7-18); CALCIUM LEVEL 9.1 MG/DL (8.5-10.1); CARBON DIOXIDE LEVEL 32 MEQ/L (21-32); CHLORIDE LEVEL 102 MEQ/L (98-107); CPK CREATINE PHOSPHOKINASE 240 U/L (26-192); CREATININE FOR GFR 0.94 MG/DL (0.55-1.30); GLOMERULAR FILTRATION RATE > 60.0 (>51); GLUCOSE, FASTING 127 MG/DL (70-100); MB/CK RELATIVE INDEX 2.12 (< OR =4); NT-PRO BNP 359 PG/ML (<125); SODIUM LEVEL 139 MEQ/L (136-145); TOTAL PROTEIN 6.8 GM/DL (6.4-8.2); TROPONIN I < 0.02 NG/ML (< 0.10)
[2018-12-07] MEDS ORDERED: ISOVUE-370 76% 100ML VIAL (Q9967) As Ordered ONE (16:37)
--- NOTE | 2018-12-07 16:40 | REP ---
Chest one-view HISTORY: Cough Comparison: 12/05/2018 There is loss of volume in the left hemithorax with elevation of the left hemidiaphragm. Parenchymal density is present in the left perihilar area consistent with scarring unchanged compared to the previous study. The right lung is clear. The heart is normal in size. The pulmonary vasculature is normal in appearance. Impression: Left perihilar scarring unchanged compared to the previous study. Electronically Signed by Neptali Fay MD 12/07/2018 04:31 P
--- NOTE | 2018-12-07 19:22 | REP ---
CT pulmonary angiogram: With IV contrast. History: Shortness of breath. Hypoxia. History of lung carcinoma status post chemo and radiation therapy. Comparison studies: Comparison chest CT study May 25, 2018. Contrast dose: 75 ML of Isovue [address] technique: Helical scanning is acquired and overlapping 1.5 mm and contiguous 3 mm axial images are reformatted. In addition, maximum intensity projection and multiplanar re-formation images are generated in sagittal and coronal imaging projections. CT pulmonary angiographic findings: There is good opacification in the pulmonary arterial tree. There is no CT evidence of pulmonary embolism. Maximal intensity projection images show no vessel cutoff or filling defect. There are surgical clips in the left hilar region. There is chronic atelectasis and opacification with air bronchograms in the left upper lobe. This is essentially unchanged from the May 25, 2018 prior study. There is some linear fibrosis and atelectasis extending to the left base also unchanged. Emphysematous changes are noted in the apices bilaterally, right more so than left. No new infiltrate is seen. There is no evidence of pleural effusion. There is a small pericardial effusion which it is unchanged. No hilar or mediastinal mass or adenopathy has developed. There is slight thickening of the adrenal glands bilaterally unchanged from the comparison study. Impression: Postoperative and postradiation changes in the left hemithorax status quo from May 25, 2018. No new infiltrate is seen. No CT evidence of pulmonary embolism. Small stable pericardial effusion. Electronically Signed by Yamil Rico MD 12/07/2018 07:24 P
[2018-12-07] MEDS ORDERED: LAMO200T2 PO (20:36)
[2018-12-07] MEDS ORDERED: PRED10TA2 PO (20:40)
[2018-12-07 21:18] VITALS: BP 152/76
--- NOTE | 2018-12-07 21:20 | ECGEPIP ---
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
== END 2018-12-07 21:27 | disposition home or self-care (01) ==
LOC: M ED 14:52
DX: J44.1 Chronic obstructive pulmonary disease with (acute) exacerbation (principal); E78.5 Hyperlipidemia, unspecified; Z87.891 Personal history of nicotine dependence; F32.9 Major depressive disorder, single episode, unspecified; F41.9 Anxiety disorder, unspecified; G47.30 Sleep apnea, unspecified
CPT/HCPCS: 36600; 71045; 71275; 80048; 80076; 82550; 82553; 82803; 83880; 84443; 84484; 85025; 87040; 87502; 93005; 93041; 94640; 94760; 99285; J2930; Q9967

== ENCOUNTER → 2019-04-13 | Outpatient (CLI) | payer BC ==
[~2019-04-13] MED LIST changes: +ADV250INH INH; +ALBU83IN INH; -ASPI1TAB PO; +ASPI81TA26 PO; +HYDR-3715 PO; +LAMO200T2 PO; -NORCOTAB PO; +PRED10TA2 PO; +SPIR1CAP INH; -VALS1TAB46 PO; +VALS1TAB66 PO
[2019-04-17 00:07] LABS: ASPERGILLUS FLAVUS ABY Negative (Neg:<1:1); ASPERGILLUS FUMIGATUS ABY Negative (Neg:<1:1); ASPERGILLUS NIGER ABY Negative (Neg:<1:1)
== END ==
LOC: M LAB 08:27
PROVIDERS: ATTEND Internal Medicine Pulmonary Disease
DX: J44.1 Chronic obstructive pulmonary disease with (acute) exacerbation (principal)

== ENCOUNTER → 2019-09-08 | Outpatient (CLI) | payer BC ==
[~2019-09-08] MED LIST changes: +BUSP10TA PO; +MULTTAB61 PO
--- NOTE | 2019-09-08 10:16 | REP ---
PA and lateral chest: Comparisons are 12/05/2018 and to 04/20/2019 as well as a remote study of 04/19/2017. There are chronic postsurgical changes and scarring in the left upper lobe, unchanged. The right lung is clear and unchanged. There are no pleural effusions. There are no masses or nodules were size is normal. Skeletal structures are unremarkable. Impression: Chronic stable changes on the left. No acute cardiopulmonary findings. Electronically Signed by Arnold Houser MD 09/08/2019 10:07 A
== END ==
LOC: M LAB 09:32 → M RAD 09:32
PROVIDERS: ATTEND Internal Medicine Hematology
DX: C22.9 Malignant neoplasm of liver, not specified as primary or secondary (principal); R05 Cough

== ENCOUNTER 2019-12-08 18:11 | Emergency (ER) | payer BC ==
[~2019-12-08] VITALS: Ht 172.7 cm; Wt 91.8 kg
[~2019-12-08 18:11] MED LIST changes: -LAMO150T2 PO; +LAMO150T3 PO; -LAMO200T2 PO; +LAMO200T3 PO
--- NOTE | 2019-12-08 19:00 | REP ---
Clinical: Chest pain. History of lung cancer. Technique: PA and lateral. Comparison: 09/08/2019. Findings: Left hilar mass is again noted and relatively similar to prior examination. New rounded lesions in the right perihilar region as well as bilateral lower lobe infiltrates (left greater than right) are now identified. Small left effusion cannot be excluded. No pneumothorax. Skeletal structures intact. Impression: 1. Known left hilar mass. 2. New right perihilar mass/adenopathy and bilateral lower lobe consolidations. Differential diagnosis includes increasing malignancy and/or multifocal pneumonia. Electronically Signed by Gutierrez Jenkins MD 12/08/2019 06:51 P
[2019-12-08] MEDS ORDERED: AIRB1CHW PO (19:02)
[2019-12-08] MEDS ORDERED: DULO1CAP5 PO (19:02)
[2019-12-08] MEDS ORDERED: TREL1AER PO (19:02)
[2019-12-08] MEDS ORDERED: NAPR-885 PO (19:02)
[2019-12-08] MEDS ORDERED: SAXE1INJ SQ (19:02)
[2019-12-08 19:09] LABS: BASO # 0.1 10^3/uL (0.0-0.2); BASO % 0.6 % (0.0-1.0); EOS # 0.3 10^3/uL (0.0-0.5); EOS % 3.2 % (0.0-3.0); HEMATOCRIT 38.2 % (36.0-47.0); LYMPH # 0.8 10^3/uL (1.5-5.0); LYMPH % 8.2 % (24.0-44.0); MEAN CORPUSCULAR HGB CONC 31.4 g/dl (32.0-36.5); MEAN CORPUSCULAR VOLUME 92.3 fl (80.0-96.0); MONO # 0.6 10^3/uL (0.0-0.8); MONO % 5.9 % (0.0-5.0); NEUTROPHILS # 8.2 10^3/uL (1.5-8.5); NEUTROPHILS % 81.1 % (36.0-66.0); PLATELET COUNT, AUTOMATED 472 10^3/uL (150-450); RED BLOOD COUNT 4.14 10^6/uL (4.00-5.40); WHITE BLOOD COUNT 10.1 10^3/uL (4.0-10.0)
[2019-12-08 19:28] LABS: PROTHROMBIN TIME 12.9 SECONDS (11.8-14.0)
[2019-12-08 19:29] LABS: PARTIAL THROMBOPLASTIN TIME 42.3 SECONDS (25.0-38.4)
[2019-12-08 19:31] LABS: D-DIMER QUANT 2571.31 ng/ml (<500)
[2019-12-08 19:39] LABS: CK-MB VALUE MASS 1.7 NG/ML (<3.6); CPK CREATINE PHOSPHOKINASE 66 U/L (26-192); MB/CK RELATIVE INDEX 2.58 (< OR =4); TROPONIN I < 0.02 NG/ML (< 0.10)
[2019-12-08] MEDS ORDERED: ISOVUE-370 76% 100ML VIAL (Q9967) As Ordered ONE (19:42)
--- NOTE | 2019-12-08 20:37 | REPVR ---
PROCEDURE INFORMATION: Exam: CT Angiography Chest With Contrast Exam date and time: 12/08/2019 7:50 PM Age: 59 years old Clinical indication: Pain and abnormal findings; Abnormal diagnostic tests; Elevated d-dimer; Chest pain; Additional info: Elevated d dimer, chest pain, HX of lung cancer TECHNIQUE: Imaging protocol: Computed tomographic angiography of the chest with intravenous contrast. 3D rendering: MIP and/or 3D reconstructed images were created by the technologist. Radiation optimization: All CT scans at this facility use at least one of these dose optimization techniques: automated exposure control; mA and/or kV adjustment per patient size (includes targeted exams where dose is matched to clinical indication); or iterative reconstruction. Contrast material: ISOVUE 370; Contrast volume: 75 ml; Contrast route: IV; COMPARISON: CT ANGIO CHEST 12/07/2018 4:43 PM FINDINGS: Pulmonary arteries: The main pulmonary artery measures 30 mm. The left main pulmonary artery is tapered and blunted before significant branch in and likely reflects mass or scar in the left hilum. Minimal if any pulmonary arterial flow is noted to the left lung. No pulmonary embolism is identified in the right lung. Aorta: The ascending thoracic aorta measures 31 mm. Thyroid: Enlarged right supraclavicular nodes which measure up to 3.1 cm lateral to the thyroid and posterior to the jugular vein. Lungs: Pulmonary interstitial coarsening with patchy ground-glass infiltrates, particularly in the left base. There is consolidation extending posteriorly from the left hilum into the superior segment of the left lower lobe or posterior left upper lobe and minimal scattered fibro-atelectatic change, greatest in the medial left upper lobe. Multiple pulmonary nodules are noted to extend from the right hilum anterolaterally into the anterior segment of the right upper lobe and central right middle lobe. Pleural space: Minimal left pleural effusion which appears to be loculated. Heart: Trace pericardial effusion which is similar. Adrenals: Right adrenal mass measuring 2.0 cm which is similar. Lymph nodes: Mild right hilar adenopathy with extension into the azygo-esophageal recess. Additional small mediastinal nodes are present. Calcified left hilar nodes are present. Bones/joints: Unremarkable. No acute fracture. Soft tissues: Unremarkable. IMPRESSION: 1. Minimal loculated right pleural effusion which is increased since 12/07/2018. There is increased consolidation extending posteriorly from the left hilum and to a lesser degree in the left infrahilar region. There is persistent fibro atelectatic change in the medial left upper lobe. Although bronchi continue to extend through the consolidation, there is significantly greater tapering and blunting of the left main pulmonary artery such that there is trace blood flow into the left upper lobe but no significant pulmonary artery perfusion into the remaining left lung and is significantly diminished since the prior study. 2. Multiple new right pulmonary nodules are noted to extend anterolaterally from the right hilum into the anterior segment of the right upper lobe and central right middle lobe consistent with metastatic disease. Fleischner follow up recommendations for incidental nodules are not indicated. Follow up per patient's medical condition. 3. Increased patchy ground-glass infiltrates, greatest in the left base since the prior study. 4. No interval pulmonary embolism is identified in the right lung. 5. Right adrenal nodule measuring 2 cm which is similar. Electronically signed by: Saad Floyd On 12/08/2019 20:32:36 PM
[2019-12-08] MEDS ORDERED: PROAAER10 INH (21:55)
[2019-12-08 22:09] VITALS: BP 153/73
--- NOTE | 2019-12-08 22:10 | ECGEPIP ---
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
--- NOTE | 2019-12-09 07:51 | ED PDOC ---
Post-Departure Follow-Up cxr, cta chest faxed to diana montero and diane rodriguez for fu Alberta Lowry MD Dec 09, 2019 07:51
== END 2019-12-08 22:13 | disposition home or self-care (01) ==
LOC: M ED 18:11
DX: R91.8 Other nonspecific abnormal finding of lung field (principal); Z85.118 Personal history of other malignant neoplasm of bronchus and lung; J90 Pleural effusion, not elsewhere classified; R94.31 Abnormal electrocardiogram [ECG] [EKG]; I10 Essential (primary) hypertension; E78.5 Hyperlipidemia, unspecified; G47.30 Sleep apnea, unspecified; J93.9 Pneumothorax, unspecified; Z88.2 Allergy status to sulfonamides; Z79.02 Long term (current) use of antithrombotics/antiplatelets; Z79.51 Long term (current) use of inhaled steroids; Z79.899 Other long term (current) drug therapy
CPT/HCPCS: 36415; 71046; 71275; 80047; 82550; 82553; 82803; 84484; 85025; 85379; 85610; 85730; 93005; 99284; Q9967

== ENCOUNTER → 2019-12-19 | Outpatient (CLI) | payer BC ==
[~2019-12-19] MED LIST changes: +AIRB1CHW PO; +DULO1CAP5 PO; +ENOX120I3 SC; +LIDOCAINE 1% MDV 20ML VIAL As Ordered ONE; +NAPR-885 PO; +ONDA4TAB6 PO; +OXYC1TAB23; +PRED20TA PO; +PROAAER10 INH; +SAXE1INJ SQ; +SODIUM BICARBONATE 8.4% INJ 50MEQ 50 ML VIAL As Ordered ONE; +TREL1AER PO; +XARE10TA
[2019-12-19 12:30] VITALS: BP 142/72
--- NOTE | 2019-12-19 15:55 | REP ---
Ultrasound-guided right supraclavicular lymph node FNA This procedure was performed by DANIE Canela, under the direct supervision of Dr. Rico. The risks and the benefits of the procedure were explained to the patient and informed consent was obtained both verbally and written. Directly prior to the start of the procedure, a formal time out was completed in the procedure room. The right lateral neck and supraclavicular lymph node was localized using ultrasound guidance. The skin was prepped and draped in a sterile fashion. 2 ml of buffered lidocaine was used as a local anesthetic. Using ultrasound guidance 8 fine-needle aspirations were obtained using 25 gauge needles of the right lateral supraclavicular lymph node. The patient tolerated the procedure well and there were no immediate complications. After the appropriate amount of monitored convalescence the patient was discharged from the department. Reviewed by DANIE Canela 12/19/2019 01:59 P Electronically Signed by Yamil Rico MD 12/19/2019 03:47 P
== END ==
LOC: M IRPRO 11:03
PROVIDERS: ATTEND Internal Medicine Pulmonary Disease
DX: C77.0 Secondary and unspecified malignant neoplasm of lymph nodes of head, face and neck (principal)

== ENCOUNTER → 2020-01-01 | Outpatient (CLI) | payer BC ==
[~2020-01-01] MED LIST changes: -LIDOCAINE 1% MDV 20ML VIAL As Ordered ONE; +MORP-69 PO; +OXYC1TAB23 PO; +PROHANCE 279.3MG/ML 15ML VIAL (A9576) As Ordered ONE; +PROHANCE 279.3MG/ML 5ML VIAL (A9576) As Ordered ONE; -SODIUM BICARBONATE 8.4% INJ 50MEQ 50 ML VIAL As Ordered ONE
--- NOTE | 2020-01-01 10:20 | REPVR ---
PROCEDURE INFORMATION: Exam: MR Head Without and With Contrast Exam date and time: 01/01/2020 9:27 AM Age: 59 years old Clinical indication: Condition or disease; History of cancer (specify primary cancer site): ; Patient HX: PT states HX lung CA that has come back 3x, no current neuro symptoms, no recent priors, PT was given 18cc prohance; Additional info: Staging of lung CA TECHNIQUE: Imaging protocol: MR of the head without and with intravenous contrast. Contrast material: PROHANCE; Contrast volume: 18 ml; Contrast route: 22G ANGIO; COMPARISON: MRI-Brain W/O FOLL BY WITH 10/31/2015 4:24 PM FINDINGS: Brain: There is extra-axial collection or intra-axial mass. Moderate diffuse volume loss is within the range of normal for patient age. There is confluent T2/FLAIR hyperintensity within the periventricular and subcortical white matter and substance of the lars, nonspecific typically small-vessel ischemia in this age group. Changes have significantly progressed as compared to preceding examination. There is no abnormal enhancement within the brain. Ventricles: Normal. No ventriculomegaly. Bones/joints: Unremarkable. Soft tissues: Unremarkable. Sinuses: Normal as visualized. No acute sinusitis. Mastoid air cells: Normal as visualized. No mastoid effusion. Orbits: Unremarkable. IMPRESSION: No acute findings. Electronically signed by: Felicia Shannon On 01/01/2020 10:19:46 AM
== END ==
LOC: M RAD 08:40
PROVIDERS: ATTEND Internal Medicine Hematology
DX: C34.80 Malignant neoplasm of overlapping sites of unspecified bronchus and lung (principal); Z87.891 Personal history of nicotine dependence; J44.9 Chronic obstructive pulmonary disease, unspecified
CPT/HCPCS: 70553; A9576

== ENCOUNTER → 2020-01-02 | Outpatient (CLI) | payer BC ==
[~2020-01-02] MED LIST changes: -PROHANCE 279.3MG/ML 15ML VIAL (A9576) As Ordered ONE; -PROHANCE 279.3MG/ML 5ML VIAL (A9576) As Ordered ONE
--- NOTE | 2020-01-02 18:27 | REP ---
PET/CT: History: Restaging lung cancer. 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 Treated with chemotherapy and radiation therapy. Comparisons: Comparison PET-CT study May 13, 2016. Comparison CT study of the chest December 08, 2019. TECHNIQUE: 48 minutes following the intravenous injection of a 8.13 mCi dose of F-18 FDG, three-dimensional PET scintigraphy is acquired from the skull base to the proximal thighs. Triplanar noncontrast CT scanning is acquired through the same anatomic range for attenuation correction, and image registration with scan parameters optimized to minimize radiation exposure to the patient. PET scintigraphy and CT datasets were fused and displayed on a workstation with multiplanar and projection display capability. PET/CT Findings: The known right supraclavicular lymphadenopathy is hypermetabolic, maximum SUV value 19.26. Hypermetabolic jasmin uptake is seen at several locations in the superior mediastinum, right pretracheal mediastinum, and anterior mediastinum. Maximum standard uptake value in this hypermetabolic adenopathy ranges up to 20.41. There is a large hypermetabolic mass in the posterior aspect of the left upper lobe distribution within the post radiation change in the parenchyma. This is adjacent to the chest wall. Maximum standard uptake value in this is 19.07. This area measures up to 8.3 cm. It is adjacent to the posterior ribs which appear slightly irregular. There is interstitial lung disease in the left lung base with mildly hypermetabolic uptake consistent with lymphangitic spread. Maximum standard uptake value is 4.47 to 6.15 in this region. There is a small left pleural effusion. No other abnormal hypermetabolic uptake is seen. Impression: Evidence of fairly bulky recurrent disease bilaterally in the chest and in multiple mediastinal and right hilar lymph nodes as well as right supraclavicular adenopathy. There is evidence of lymphangitic spread in the left lower lobe distribution and a small left pleural effusion is seen. Electronically Signed by Yamil Rico MD 01/03/2020 07:21 A
== END ==
LOC: M PLARAD 10:23
PROVIDERS: ATTEND Internal Medicine Hematology
DX: C34.90 Malignant neoplasm of unspecified part of unspecified bronchus or lung (principal); Z92.3 Personal history of irradiation; Z92.21 Personal history of antineoplastic chemotherapy; J90 Pleural effusion, not elsewhere classified
CPT/HCPCS: 78815; A9552

== ENCOUNTER → 2020-01-08 | Outpatient (CLI) | payer BC ==
[~2020-01-08] MED LIST changes: +LIDO5CRE6 TOP; +LIDOCAINE 1% MDV 20ML VIAL As Ordered ONE; +MIDAZOLAM INJ 2 MG/2 ML VIAL (J2250) As Ordered ONE; +ceFAZolin 1GM INJ (J0690 PER 500MG) As Ordered ONE; +diphenhydrAMINE INJ 50MG/ML VIAL (J1200) As Ordered ONE; +fentaNYL 100 MCG/2 ML INJECTION (J3010) As Ordered ONE
--- NOTE | 2020-01-08 15:43 | IRHP ---
[facility] IR Pre-Procedure H & P General Date of Service: Jan 08, 2020 Procedure: Same Day Surgery Interval History and Physical I have seen the patient and reviewed last H & P performed within 30 days. There is no significant interval change. History of Present Illness Chief Complaint The patient is a 59-year-old female admitted with a reason for visit of [facility]- Chemo. PRE-PROCEDURE DIAGNOSIS: lung ca HEART: normal rate. LUNGS: normal breathing at rest. ASA Classification ASA Classification: III-Severe systemic dis. Mallampati Score: II NPO: Yes Problems with prior sedation: No Obstructive Sleep Apnea: Yes Plan moderate sedation Allergies Coded Allergies: Sulfa (Sulfonamide Antibiotics) (Verified Adverse Reaction, Mild, nausea, 01/26/19) Home Medications Scheduled Cholecalciferol (Vitamin D3) (Vitamin D3), 2,000 UNIT PO QHS, (Reported) Duloxetine Hcl (Duloxetine HCl), 1 CAP PO DAILY, (Reported) Enoxaparin Sodium (Enoxaparin Sodium), 120 MG SC DAILY Fluticasone/Umeclidin/Vilanter (Trelegy Ellipta 100-62.5-25), 1 UNIT PO DAILY, (Reported) Lamotrigine (Lamotrigine), 200 MG PO DAILY, (Reported) Liraglutide (Saxenda), 1 UNIT SQ DAILY, (Reported) Montelukast Sodium (Singulair), 10 MG PO QHS, (Reported) Morphine Sulfate (Morphine Sulfate ER), 15 MG PO BID Multivitamin (Multivitamins), 1 TAB PO DAILY, (Reported) Mv-Min/Vit C/Glut/Lysine/Hc124 (Airborne Tablet Chewable), 1 CHW PO DAILY, (Reported) Scheduled PRN Diazepam (Valium), 5 MG PO PRN PRN for ANXIETY, (Reported) Hydroxyzine HCl (Hydroxyzine HCl), 25 MG PO PRN PRN for ITCHING, (Reported) Ondansetron (Ondansetron Odt), 4 MG PO Q6-8HP PRN for nausea/vomiting Oxycodone HCl/Acetaminophen (Oxycodone-Acetaminophen 5-325), 5 MG PO Q4-6HP PRN for PAIN OR FEVER Discontinued Medications Duloxetine Hcl (Cymbalta), 60 MG PO DAILY, (Reported) Discontinued Reason: PCP discontinued med Rivaroxaban (Xarelto), (Reported) Discontinued Reason: PCP discontinued med VS, I&O, 24H, Fishbone Vital Signs/I&O Vital Signs Date Time Temp Pulse Resp B/P (MAP) Pulse Ox O2 Delivery O2 Flow Rate FiO2 01/08/20 15:25 93 18 98 Room Air 01/08/20 15:15 2 01/08/20 13:52 98.1 SIMONA PAYTON MD Jan 08, 2020 15:43
--- NOTE | 2020-01-08 15:45 | POST-OPPD ---
Postoperative Procedure Note Date Of Procedure: Jan 08, 2020 Time Of Procedure: 15:44 PREOPERATIVE DIAGNOSIS: lung ca POSTOPERATIVE DIAGNOSIS: same FINDINGS: patent right IJ PROCEDURE: right side port SURGEON: sukhdeep ANESTHESIA: mod sed ESTIMATED BLOOD LOSS: < 5 ml COMPLICATIONS: none POSTOPERATIVE CONDITION: stable SIMONA PAYTON MD Jan 08, 2020 15:45
[2020-01-08 17:13] VITALS: BP 133/62
--- NOTE | 2020-01-09 08:37 | REP ---
IR Ultrasound and fluoroscopy-guided port placement. IR Ultrasound of the neck. IR Moderate sedation. Clinical information: Lung cancer. Physician: Dr. Velasco. Procedure: The patient was advised of the benefits, risks, and alternatives of the procedure and informed consent was obtained. A time-out was performed with verification of the patient's name, MRN, site of procedure and type of procedure to be performed. The patient was positioned in the supine position on the angiographic table. The site was prepped and draped in the usual sterile fashion. Moderate sedation was performed by the physician including the presence of an independent trained observer who assisted and monitored the patient's level of consciousness and physiologic status. Following the administration of fentanyl and Versed, the physician spent 45 minutes of continuous face to face time with the patient. Ultrasound of the neck reveals a patent and compressible right internal jugular vein. Large lymph nodes in the neck. A student life vice president radiograph reveals right lung appropriately aerated. The neck and anterior chest wall were anesthetized with lidocaine. The right internal jugular vein was accessed using a microintroducer needle under ultrasound guidance, via a lateral approach. An 018 wire was advanced into the superior vena cava, the needle was removed and a microsheath was placed. An Amplatz wire was then passed into the inferior vena cava. An incision at the internal jugular vein access site and anterior chest wall were made using a scalpel. An incision was made at the anterior chest wall. A small pocket was created using a combination of blunt and sharp dissection. A tunneling device was then used to pass the catheter from the pocket to the neck puncture site. An 8-Yemeni Angio dynamics Smart power port was then positioned in the pocket. The catheter was then measured and cut. The introducer sheath was exchanged for a peel-away sheath. The catheter was passed through the peel-away sheath into the internal jugular vein and the peel-away sheath was removed. The port tip was positioned at the cavoatrial junction. The port was then accessed with a Talamantes needle. The port flushes and aspirates well. The puncture site in the neck was closed. The chest wall incision was then closed with 2-0 Vicryl and 4-0 Monocryl. Glue and Steri-Strips were applied. A sterile dressing was then applied. The patient tolerated the procedure well and was returned to the PRU in stable condition. Estimated blood loss: <5 ml. Complications: None. Conclusion: 1. Successful placement of an 8-Y[place]i Angio dynamics Smart power port via the right internal jugular vein. The port is ready for immediate use. 2. Patient to follow up in IR clinic in 2 weeks. Thank you for this referral. Electronically Signed by Ana Velasco MD 01/09/2020 08:36 A
== END ==
LOC: M IRPRO 13:34
PROVIDERS: ATTEND Internal Medicine Hematology
DX: C34.90 Malignant neoplasm of unspecified part of unspecified bronchus or lung (principal); R59.9 Enlarged lymph nodes, unspecified
CPT/HCPCS: 36561; 99152; 99153; C1769; C1788; C1894; J0690; J1200; J1642; J1644; J2250; J3010

== ENCOUNTER → 2020-04-02 | Outpatient (CLI) | payer BC ==
[~2020-04-02] MED LIST changes: +ASPI81TA85 PO; +ATOR40TA75 PO; +CELE1CAP7 PO; +COLC1TAB14 PO; +GASTROGRAFIN SOLUTION 30ML (Q9963) As Ordered ONE; +HM A10TA PO; +LIDO2.5C15 TOP; -LIDOCAINE 1% MDV 20ML VIAL As Ordered ONE; -MIDAZOLAM INJ 2 MG/2 ML VIAL (J2250) As Ordered ONE; +NEUR100C PO; +OXYC-517 PO; +VITA-243 PO; +VITA1CHW7 PO; -VITA500T PO; -ceFAZolin 1GM INJ (J0690 PER 500MG) As Ordered ONE; -diphenhydrAMINE INJ 50MG/ML VIAL (J1200) As Ordered ONE; -fentaNYL 100 MCG/2 ML INJECTION (J3010) As Ordered ONE
--- NOTE | 2020-04-03 02:15 | REP ---
Clinical: Small cell lung cancer. Restaging. Technique: Axial noncontrast images from the thoracic inlet to the upper abdomen with coronal and sagittal re-formations. Comparison: 12/08/2019, 12/07/2018. Findings: Chronic pleuroparenchymal changes involving the left hemithorax suggesting post radiation type changes including chronic areas of atelectasis/consolidation, fibrosis/scarring, pleural reaction and partially calcified left hilar lymph nodes are again noted. Underlying advanced diffuse COPD/emphysematous changes with scattered bilateral mild bronchiectasis and scarring remains stable. Previously noted patchy bilateral ground-glass opacities have completely dissipated. The right sided mass lesions, nodules and presumed adenopathy on recent prior examination have nearly completely resolved leaving only small peribronchovascular nodules in the right upper lobe (images 52, 56). No obvious new mass lesion is appreciated. No acute effusion. No pneumothorax. Evaluation for adenopathy is limited by the lack of intravenous contrast enhancement. Further evaluation of the mediastinum demonstrates atherosclerotic changes to the thoracic aorta along with small stable pericardial fluid/thickening. No cardiomegaly. Osseous structures are stable. Adenar-C-Nbig identified with tip in the right atrium. Impression: 1. Chronic stable changes including postradiation type pleuroparenchymal changes involving the left hemithorax and diffuse underlying COPD/emphysematous disease with scattered scarring. 2. Mass lesions and adenopathy identified on recent prior examination within the right perihilar and right upper lobe regions have essentially near completely resolved, and no new lesions are identified. Electronically Signed by Gutierrez Jenkins MD 04/03/2020 02:06 A
--- NOTE | 2020-04-03 02:25 | REP ---
Clinical: History small cell lung cancer for restaging. Technique: Axial noncontrast images from the lung bases to the pubic symphysis with coronal and sagittal re-formations. Comparison: 11/17/2017. Findings: Liver, spleen, pancreas, gallbladder, and right adrenal gland are essentially normal for noncontrast evaluation. Left kidney includes stable 3.4 cm hypodensities likely representing cyst. 1.7 cm low density right adrenal nodule and 1.7 cm left adrenal lesion are again identified and relatively stable. Visualized enteric system is without obstruction or acute inflammatory process. Scattered colonic diverticula suggested. The osseous structures demonstrate degenerative changes without definite focal osseous lesion identified. There is a 2 cm soft tissue nodule/lesion in the anterior subcutaneous tissues overlying the lower portion of the right rectus muscle (image 91) which represents a new finding. There is no evidence for ascites. No obvious retroperitoneal adenopathy. Atherosclerotic changes to the aorta and vasculature noted without aneurysm. Impression: 1. Bilateral adrenal lesions appear relatively stable and may represent benign adenomas. 2. 3.4 cm left renal cyst remain stable. 3. 2 cm soft tissue nodule/lesion in the anterior subcutaneous tissues overlying the right rectus muscle represents a new finding and warrants further investigation. Finding may represent metastatic lesion or benign lesion possibly related to prior injection. Electronically Signed by Gutierrez Jenkins MD 04/03/2020 02:17 A
== END ==
LOC: M RAD 14:34
PROVIDERS: ATTEND Internal Medicine Hematology
DX: C34.90 Malignant neoplasm of unspecified part of unspecified bronchus or lung (principal); N28.1 Cyst of kidney, acquired; M62.89 Other specified disorders of muscle
CPT/HCPCS: 71250; 74150; Q9963

== ENCOUNTER → 2020-05-09 | Outpatient (CLI) | payer BC ==
[~2020-05-09] MED LIST changes: -GASTROGRAFIN SOLUTION 30ML (Q9963) As Ordered ONE; +LEVOTAB10 PO; +NYST50SS PO; +POTA1TAB14 PO; +XARE20TA PO
--- NOTE | 2020-05-17 01:24 | ECWPNPC ---
PATIENT NAME: DIONE ARELLANO : 1960 GENDER: FEMALE VISIT DATE: 05/09/2020 DISCHARGE DATE: 05/09/201818 VISIT LOCKED DATE TIME: PHYSICIAN: KADEN PENA MD RESOURCE: KADEN PENA MD REASON FOR APPOINTMENT 1. NERVE BLOCK HISTORY OF PRESENT ILLNESS GENERAL: 59-YEAR-OLD FEMALE PATIENT WITH A HISTORY OF CHRONIC LEFT CHEST WALL PAIN. THE PATIENT DESCRIBES THE PAIN SHOOTING, STABBING AND ACHING WITH A PAIN SCORE RANGING FROM 6-10/10 DEPENDING ON PHYSICAL ACTIVITY. THE PATIENT STATES THAT SHE HAS HAD THIS PAIN FOR THE PAST 8 MONTHS. 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 THE PATIENT STARTED TO EXPERIENCE PAIN AGAIN THIS YEAR AND HAD A CT SCAN PERFORMED AND FOUND A RIGHT-SIDED CARCINOMA. THE PATIENT IS NOW RECEIVING IMMUNOTHERAPY; HOWEVER THE PAIN PERSISTS. PATIENT DENIES UNEXPLAINABLE WEIGHT LOSS, FEVER, CHILLS, NEW CHANGES ON HER URINARY OR BOWEL CONTROL. FALL RISK SCREENING: SCREENING :TWO OR MORE FALLS WITH INJURY IN THE PAST YEAR TIPPED OVER IN GARDEN, NO INJURY.. PT WENT TO STEP ON RAMP TO REACH FOR MAIL AND FELL IN BETWEEN MAILBOX AND RAMP.. HURT RIGHT SHOULDER, HAS BRUISING, ALSO HURT LEFT THUMB AND HAS 2 SKIN TEARS ABOVE LEFT WRIST PAIN SCREENING: PATIENT HAS A COMPLAINT OF ACUTE OR CHRONIC PAIN :NO PT STATES NO PAIN AT THIS TIME NURSING NOTE: -. PAIN CENTER INTAKE QUESTIONS: DO YOU HAVE A HISTORY OF MRSA? :NO DO YOU TAKE A BLOOD THINNERS? :YES LOVENOX AND 81 MG ASA DO YOU HAVE ANY BLEEDING DISORDERS? :NO ANY NEW NUMBNESS OR WEAKNESS IN YOUR LEGS OR ARMS? :NO ANY PACEMAKER,DEFIBRILLATOR, OR DORSAL COLUMN STIMULATOR? :NO DO YOU HAVE ANY RASHES OR OPEN SORES? :NO ARE YOU ALLERGIC TO IV DYE? :NO ARE YOU DIABETIC? :NO ANY NEW PROBLEMS WITH YOUR MEDICATIONS? :NO HAVE YOU RECEIVED A VACCINE IN THE PAST 30 DAYS? :NO DO YOU PLAN TO RECEIVE A VACCINE IN THE NEXT 21 DAYS? :NO DO YOU NEED ANY PRESCRIPTION? :NO DO YOU TAKE ANY IMMUNOSUPPRESSIVE MEDICATIONS? :YES PT GETS IMMUNOTHERAPY FOR [place] IS THERE A CHANCE YOU COULD BE ? :NO ARE YOU BREAST FEEDING? :NO CURRENT MEDICATIONS TAKING LOVENOX 120 MG/0.8ML SOLUTION 1 INJECTION SUBCUTANEOUS DAILY TAKING GABAPENTIN 100 MG CAPSULE 1 CAPSULE ORALLY THREE TIMES DAILY TAKING MORPHINE SULFATE ER 15 MG TABLET EXTENDED RELEASE 1 TABLET ORALLY EVERY 12 HRS TAKING OXYCODONE HCL 5 MG TABLET 1 TABLET NEEDED ORALLY EVERY 6 HRS TAKING ONDANSETRON HCL 4 MG TABLET 1 TABLET ORALLY ONCE A DAY TAKING CETIRIZINE HCL 10 MG TABLET 1 TABLET ORALLY ONCE A DAY TAKING ASPIRIN 81 81 MG TABLET CHEWABLE 1 TABLET ORALLY ONCE A DAY TAKING ATORVASTATIN CALCIUM 10 MG TABLET 1 TABLET ORALLY ONCE A DAY TAKING LIDOCAINE-PRILOCAINE 2.5-2.5 % CREAM DIRECTED EXTERNALLY TAKING DULOXETINE HCL 60 MG CAPSULE DELAYED RELEASE PARTICLES 1 CAPSULE ORALLY ONCE A DAY TAKING DULOXETINE HCL 30 MG CAPSULE DELAYED RELEASE PARTICLES 1 CAPSULE ORALLY ONCE A DAY TAKING VITAMIN D 50 MCG (1999 UT) TABLET 1 TABLET ORALLY ONCE A DAY TAKING AIRBORNE - TABLET CHEWABLE DIRECTED ORALLY TAKING TRELEGY ELLIPTA 100-62.5-25 MCG/INH AEROSOL POWDER BREATH ACTIVATED 1 PUFF INHALATION ONCE A DAY TAKING LAMOTRIGINE 200 MG TABLET 1 TABLET ORALLY ONCE A DAY TAKING MULTIVITAMIN - TABLET 1 TABLET ORALLY ONCE A DAY TAKING DIAZEPAM 5 MG TABLET 1 TABLET NEEDED ORALLY ONCE A DAY TAKING MONTELUKAST SODIUM 10 MG TABLET 1 TABLET ORALLY ONCE A DAY TAKING HYDROXYZINE HCL 25 MG TABLET 1 TABLET NEEDED ORALLY EVERY 8 HRS MEDICATION LIST REVIEWED AND RECONCILED WITH THE PATIENT PAST MEDICAL HISTORY LUNG CANCER AMXIETY DEPRESSION HIGH CHOLESTEROL ALLERGIES SULFA (FOR ALLERGY USE ONLY): ANAPHYLAXIS - ALLERGY - CRITICALITY HIGH - ONSET DATE 05/09/2020 SURGICAL HISTORY RIGHT GREAT TOE TUBAL LIGATION PARTIAL HYSTERECTOMY APPENDECTOMY MEDIOSCOPY EGD THORACOTOMY [place] FAMILY HISTORY FATHER: , DIAGNOSED WITH DIABETES, OTHER MALIGNANT NEOPLASM OF UNSPECIFIED SITE MOTHER: ALIVE FATHER LUNG CANCER. SOCIAL HISTORY GENERAL: TOBACCO USE ARE YOU A:FORMER SMOKER HOW LONG HAS IT BEEN SINCE YOU LAST SMOKED? QUIT 2013 LATEX QUESTIONNAIRE LATEX ALLERGY : HAVE YOU EVER DEVELOPED ANY TYPE OF REACTION AFTER HANDLING LATEX PRODUCTS SUCH RUBBER GLOVES, CONDOMS, DIAPHRAGMS, BALLOONS, SOCKS, OR UNDERWEAR?NO LATEX ALLERGY : HAVE YOU EVER DEVELOPED ANY TYPE OF REACTION DURING OR AFTER DENTAL APPOINTMENT, VAGINAL/RECTAL EXAMINATION, SURGICAL PROCEDURE, OR ANY OTHER EXPOSURE?NO LATEX RISK : HAVE YOU EVER HAD ANY DIFFICULTY BREATHING OR HIVES AFTER EATING OR HANDLING ANY FRUITS, OR VEGETABLES; SUCH KIWI, BANANAS, STONE FRUITS, OR CHESTNUTSNO LATEX RISK : DO YOU HAVE A PREVIOUS PERSONAL HISTORY OF MORE THAN NINE SURGERIES, SPINA BIFIDA, OR REPEATED CATHERIZATIONS? YES - PLEASE INDICATE : > 9 SURGERIES LATEX RISK : ARE YOU FREQUENTLY EXPOSED TO LATEX PRODUCTS IN YOUR OCCUPATION?NO DATE ASKED : 05/09/2020 GNOSTICISM GNOSTICISM NO LUTHERAN BELIEFS THAT WOULD IMPACT HEALTH CARE. LANGUAGE LANGUAGES SPOKEN:FRENCH LEARNING BARRIERS / SPECIAL NEEDS BARRIERS TO LEARNING?NO HEARING IMPAIRED?NO VISION IMPAIRED?YES :CORRECTIVE LENSES DOESNT WEAR COGNITIVELY IMPAIRED?NO READINESS TO LEARN?YES LEARNING PREFERENCES?NO LEARNING CAPABILITIES PRESENT?YES EMOTIONAL BARRIERS?NO SPECIAL DEVICES?NO TOP POLISHER NEEDED?NO MARITAL STATUS: . NEW PATIENT PAIN DIARY PATIENT DESCRIBES PAIN :IT COMES AND GOES, SHARP, SHOOTING NO PAIN NOW FROM 0-10, WHAT LEVEL IS YOUR PAIN TODAY?8 PRECIPITATING FACTORS MOVEMENT OR STRETCHING IMPACT ON FUNCTION CANNOT SLEEP, UNABLE TO DO CERTAIN ACTIVITIES WHEN DID YOU LAST EAT? 0900, [employer] WHEN DID YOU LAST DRINK? CURRENT WATER WHAT DID YOU LAST DRINK? 10 MIN AGO DO YOU TAKE ANY BLOOD THINNERS?YES LOVENOX LAST DOSE THIS MORNING ARE YOU ALLERGIC TO SHELLFISH OR IV DYE?NO ARE YOU DIABETIC?NO DO YOU HAVE A PACEMAKER OR DEFIBRILLATOR?NO HOSPITALIZATION/MAJOR DIAGNOSTIC PROCEDURE DYSPNEA.. COLLAPSED LUNG TIA REVIEW OF SYSTEMS CONSTITUTIONAL: ANY RECENT FEVER NO . CHILLS NO . WEIGHT CHANGE OF UNKNOWN REASONS NO . MUSCULOSKELETAL: ANY UNUSUAL JOINT PAIN OR SWELLING NOT MENTIONED NO . SYSTEMIC LUPUS NO . ANY NEUROMUSCULAR DISORDER NOT MENTIONED NO . LYME DISEASE NO . GASTROENTEROLOGY: ANY NEW CHANGE IN BOWEL CONTROL? NO . HISTORY OF LIVER DISORDER NOT MENTIONED NO . HISTORY OF UNUSUAL ABDOMINAL PAIN OR CRAMPING NOT MENTIONED NO . NO CONSTIPATION. GENITOURINARY: ANY NEW CHANGE IN BLADDER CONTROL? NO . ANY RENAL/KIDNEY CONDITON NOT MENTIONED NO . NEUROLOGY: HISTORY OF TBI NOT MENTIONED NO . OTHER NEW NUMBNESS OR PAIN PATTERNS NOT MENTIONED NO . NEW ONSET DIZZINESS OR NEUROLOGICAL CHANGES NOT MENTIONED NO . HISTORY OF SEVERE HEADACHES NOT MENTIONED NO . HISTORY OF STROKE OR NEUROLOGICAL DISORDER NOT MENTIONED YES, TIA DECEMBER 2019 . CARDIOLOGY: HEART SURGERY NO . CONGESTIVE HEART FAILURE/FLUID OVERLOAD NOT MENTIONED NO . HISTORY OF CHEST PAIN,IRREGULAR HEART BEAT NOT MENTIONED NO . RESPIRATORY: SHORTNESS OF BREATH ON EXERTION, WHEEZES, UNUSUAL COUGH NOT MENTIONED YES, COPD . ENDOCRINOLOGY: ADRENAL GLAND OR THYROID DISORDERS NOT MENTIONED NO . UNUSUAL URINATION, DIZZINESS OR LETHARGY NOT MENTIONED NO . VITAL SIGNS WT 189.8 LBS, HT 68 IN, BMI 28.86 INDEX, BP 117/60 MM HG, HR 102 /MIN, RR 18 /MIN, TEMP 96.9 F, OXYGEN SAT % 92%, NA INITIALS SC 15:20. EXAMINATION GENERAL: THE PATIENT IS ALERT, ORIENTED TIMES THREE AND COOPERATIVE. THE PATIENT IS TENDER TO THE LEFT CHEST WALL NEAR T9. THERE IS NO TENDERNESS OVER THE SCAR. CT OF THE CHEST DATED 04/02/2020 SHOWS COPD AND A LESION OVER THE RIGHT SIDE. 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 ARELLANO REGARDING HER TREATMENT OPTIONS AND CARE. AFTER EXAMINING THE PATIENT, I AM GOING TO REQUEST AUTHORIZATION FOR AN INTERCOSTAL NERVE BLOCK LEFT T8, T9, T10. I WILL CHECK THE PATIENT UNDER X-RAY TO SEE WHICH LEVEL I WOULD LIKE TO PERFORM. THE MAJOR POTENTIAL COMPLICATIONS, PNEUMOTHORAX, THIS WAS DISCUSSED WITH THE PATIENT. WE ALSO DISCUSSED THE USE OF STEROIDS AND POTENTIAL TEMPORARY IMMUNOSUPPRESSION. THE PATIENT KNOWS TO CALL THE OFFICE IF SHE HAS ANY QUESTIONS OR CONCERNS. THE PATIENT UNDERSTANDS AND IS IN AGREEMENT WITH THE TREATMENT PLAN. I, ANABELLA POLANCO, DOCUMENTED THE ABOVE INFORMATION ACTING A SCRIBE FOR DR. PENA. I HAVE REVIEWED THE ABOVE DOCUMENT, WRITTEN BY ANABELLA POLANCO, STOCK PREPARER, AND I VERIFY THAT IT IS ACCURATE . PROCEDURE CODES 53482 OFFICE/OUTPATIENT VISIT NEW FA211 ESTABILISHED PATIENT [facility] CHARGE DISPOSITION & COMMUNICATION FOLLOW UP REQUEST INTERCOSTAL NERVE BLOCK T8, T9 AND T10 (REASON: REQUEST INTERCOSTAL NERVE BLOCK T8, T9 AND T10) ELECTRONICALLY SIGNED BY KADEN PENA MD, MD ON 05/16/2020 AT 12:08 PM EDT DISCLAIMER : THIS IS A VISIT SUMMARY EXTRACTED FROM THE [employer] CHART. IT IS NOT A COPY OF THE [employer] PROGRESS NOTE. [facility]
== END ==
LOC: M PAIN 14:30
PROVIDERS: ATTEND Anesthesiology
DX: R07.89 Other chest pain (principal); Z98.890 Other specified postprocedural states; G58.8 Other specified mononeuropathies

== ENCOUNTER → 2020-05-23 | Outpatient (CLI) | payer BC ==
[~2020-05-23] MED LIST changes: +ALLE180T33 PO; +ASPI81CH33 PO; -ASPI81TA85 PO; +ASPI81TA86 PO; +ATOR1TAB21 PO; +CEFD300C PO; +CEFD300CAP PO; +CHOL1250 PO; +DOXY-342 PO; +FURO20TA2 PO; +GABA-1171 PO; +Home Oxygen; +LAMI1TAB8 PO; +LASI20TA3 PO; +LISI2.5T2 PO; +METO1TAB32 PO; +MUCI120T PO; +POTA20TA6 PO; +TREL1AER INH; -TREL1AER PO; +XARE10TA PO
== END ==
LOC: M LABSMTC 10:34
PROVIDERS: ATTEND Anesthesiology
DX: Z20.828 Contact with and (suspected) exposure to other viral communicable diseases (principal)

== ENCOUNTER → 2020-05-28 | Outpatient (POV) | payer BC ==
[~2020-05-28] MED LIST changes: +BUPIVACAINE HCL 0.25% 30ML VIAL As Ordered ONE; +ISOVUE-M 300 61% 15ML VIAL As Ordered ONE; +LIDOCAINE 1% SDV 30ML VIAL As Ordered ONE; +NORCO, ANEXSIA 5/325MG TABLET (HYDROcodone/ACETAMINOPHEN) As Ordered ONE; +dexameTHASONE 10MG/1ML VIAL PRES.FREE (J1100 PER 1MG) As Ordered ONE; +diazePAM 5 MG TAB As Ordered ONE
--- NOTE | 2020-07-19 10:31 | REP ---
LIMITED CHEST X-RAY: 2-VIEWS HISTORY: Intercostal nerve block for pain. Procedural imaging. 18 seconds of fluoroscopy time is reported. FINDINGS: A sequence of two last image hold fluoroscopically obtained spot radiographs of the left posterior chest document needle position and contrast injection associated with nerve block procedure. ROBERTO
== END ==
LOC: M PAIN 11:15
PROVIDERS: ATTEND Anesthesiology
DX: M53.3 Sacrococcygeal disorders, not elsewhere classified (principal)
CPT/HCPCS: 64421; J1100; Q9967

== ENCOUNTER → 2020-06-14 | Outpatient (POV) | payer BC ==
[~2020-06-14] MED LIST changes: -BUPIVACAINE HCL 0.25% 30ML VIAL As Ordered ONE; -ISOVUE-M 300 61% 15ML VIAL As Ordered ONE; -LIDOCAINE 1% SDV 30ML VIAL As Ordered ONE; -NORCO, ANEXSIA 5/325MG TABLET (HYDROcodone/ACETAMINOPHEN) As Ordered ONE; -dexameTHASONE 10MG/1ML VIAL PRES.FREE (J1100 PER 1MG) As Ordered ONE; -diazePAM 5 MG TAB As Ordered ONE
== END ==
LOC: M PAIN 09:00
PROVIDERS: ATTEND Anesthesiology
DX: M53.3 Sacrococcygeal disorders, not elsewhere classified (principal)

== ENCOUNTER → 2020-06-18 | Outpatient (CLI) | payer BC ==
[~2020-06-18] MED LIST changes: +ISOVUE-370 76% 100ML VIAL As Ordered ONE; +ISOVUE-370 76% 100ML VIAL ONE
--- NOTE | 2020-07-23 07:13 | REP ---
CT OF THE CHEST WITH IV CONTRAST: HISTORY: Restaging of lung cancer. COMPARISON: 04/02/20 and 12/08/19. FINDINGS: There is a large mass at the thoracic inlet on the right that appears to be recurrent from 12/08/19, not definitely apparent on 04/02/20 without IV contrast. This appears to measure 5.4 cm in transverse diameter. The superior aspect of this mass is excluded from the study and CT of the neck might be considered to evaluate the superior extent of this mass in the neck. This mass slightly effaces the right lobe of the thyroid. There is a mass in the right paratracheal region of the mediastinum at the base of the right hilus, recurrent from 12/08/19, not definitely identified on 04/02/20 without IV contrast. This measures 4.2 cm in transverse diameter. There is no other right hilar adenopathy. The peribronchial nodule in the right lung identified on 04/02/20 on image 52 is unchanged. It is seen on image 46 today. The peribronchial nodule in the right lung identified on 04/02/20 on image 56 is unchanged and is identified on image 49 today. There are no other lung masses or lung nodules. There is chronic scarring in the left perihilar zone, as previously. There are calcifications in the left perihilar zone, as previously. There is a small left pleural effusion, as previously. There are no other mediastinal masses or nodes. There is no axillary adenopathy. The thoracic aorta is unremarkable except for occasional calcified atheroma, unchanged. The cardiac size is normal. There is diffuse mild pericardial thickening versus pericardial effusion, unchanged. In the upper abdomen, the visualized areas of the liver, gallbladder, pancreas and spleen are unremarkable. There are bilateral adrenal nodules, unchanged. There is a cortical cyst in the upper pole of the left kidney, unchanged. IMPRESSION: There are recurrent masses at the thoracic inlet on the right and in the mediastinal right paratracheal area, as described. The superior most extent of the right thoracic inlet mass is excluded from the study and a CT of the neck might be considered for further evaluation of the superior extent of this mass. There are two peribronchial nodules in the right lung, unchanged from 04/02/20. There are chronic fibrotic changes. There is a chronic small pleural effusion on the left, unchanged. Chronic pericardial effusion versus pericardial thickening is unchanged. MTDD
== END ==
LOC: M RAD 09:18
PROVIDERS: ATTEND Specialist
DX: C34.90 Malignant neoplasm of unspecified part of unspecified bronchus or lung (principal)
CPT/HCPCS: 71260; Q9967

== ENCOUNTER → 2020-07-04 | Outpatient (CLI) | payer BC ==
[~2020-07-04] MED LIST changes: -ISOVUE-370 76% 100ML VIAL ONE
--- NOTE | 2020-07-04 15:30 | REPVR ---
PROCEDURE INFORMATION: Exam: CT Head Without And With Contrast Exam date and time: 07/04/2020 3:08 PM Age: 60 years old Clinical indication: Pain and condition or disease; History of cancer (specify primary cancer site): ; Primary cancer: Lung; Headache not specified; Prior surgery; Additional info: Headaches/ small cell lung cancer TECHNIQUE: Imaging protocol: Computed tomography of the head without and with intravenous contrast. Radiation optimization: All CT scans at this facility use at least one of these dose optimization techniques: automated exposure control; mA and/or kV adjustment per patient size (includes targeted exams where dose is matched to clinical indication); or iterative reconstruction. Contrast material: ISOVUE 370; Contrast volume: 75 ml; Contrast route: INTRAVENOUS (IV); COMPARISON: CT Head without contrast 08/12/2017 2:45 PM FINDINGS: Brain: There are nodular areas of contrast enhancement left inferior temporal measuring approximately 0.7 cm, left temporal occipital junction measuring approximately 1.4 cm, a couple areas in the right superior frontal region measuring approximately 0.3 cm, and an area in the left superolateral frontal region measuring approximately 0.5 cm. Some of this enhancement appears parenchymal in location such as the temporal and temporal occipital regions with surrounding edema. There is also some edema seen in the lesion in the superior left frontal lobe. 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 The exact location of enhancement would be better defined with MRI with and without contrast and would recommend obtaining postcontrast images in all 3 orthogonal sagittal, axial, and coronal planes. In addition, there is more focal low density in right greater than left cerebellar white matter and MRI would be helpful to exclude posterior fossa lesions which cannot be identified with CT. There is no evidence of mass effect on 4th ventricle at this time. There is generalized low-density in white matter compatible with microvascular change or if patient has history of prior brain metastatic disease, this could be of radiation. There is generalized volume loss. Basilar cisterns are patent. No midline shift. Ventricles: Normal. No ventriculomegaly. Bones/joints: Unremarkable. No acute fracture. Sinuses: There is a small lucency in the right midline frontal bone for instance axial image 12 and this was not definitively identified on the prior CT. Mastoid air cells: Visualized mastoid air cells are well aerated. IMPRESSION: Findings consistent with multifocal abnormal enhancement which is appears likely both parenchymal and leptomeningeal / subarachnoid in location. Recommend follow-up MRI with and without contrast. Electronically signed by: Susan Garcia On 07/04/2020 15:30:06 PM
== END ==
LOC: M RAD 13:48
PROVIDERS: ATTEND Specialist
DX: C34.92 Malignant neoplasm of unspecified part of left bronchus or lung (principal)
CPT/HCPCS: 70470; Q9967

== ENCOUNTER → 2020-07-10 | Outpatient (CLI) | payer BC ==
[~2020-07-10] MED LIST changes: -ISOVUE-370 76% 100ML VIAL As Ordered ONE
== END ==
LOC: M LABSMTC 09:37
PROVIDERS: ATTEND Anesthesiology
DX: Z20.828 Contact with and (suspected) exposure to other viral communicable diseases (principal)
CPT/HCPCS: C9803; U0003

== ENCOUNTER → 2020-07-11 | Outpatient (CLI) | payer BC ==
--- NOTE | 2020-07-11 11:31 | RADONC.CN ---
Radiation Oncology Hx/Consult Radiation Oncology Consult Date of Service: Jul 11, 2020 Pt Identifier Akila Zhao is a 60 year old female with recurrent SCLC, originally diagnosed in 2014 with LS SCLC of the left chest for which she underwent concurrent chemoradiation to 59.4 Gy in 33 fractions completed 04/05/15. She then underwent PCI 40 Gy in 20 fractions completed 07/23/15. She subsequently had a long disease-free interval until recurring in December 2019. Her recurrence is in the BL chest, including the prior radiation port on the left. On the PET-CT from 01/02/20 There are multiple mediastinal nodes, right perihilar parenchymal lesions, right hilar nodes, and right supraclavicular nodes. In the periphery of the right RUL there are several small plural-based nodules with mild uptake. MRI brain at the time of PET demonstrated no metastases. She then underwent carbo/etoposide/atezolizumab for 4 cycles from 01/10/20 to 03/13/20. Post cycle 1 she had a CVA and received TPA with resolution of her symptoms. After chemo, she continued on atezolizumab. Scans from 06/18/20 showed regrowth of most of the lesions in the chest which had initially responded. She then had CT head with contrast which showed some concerning areas of enhancement, MRI head is pending. She has restarted chemotherapy this time cisplatin/etoposide and is s/p cycle 1, with cycle 2 to start on 07/24/20. 6 cycles have been written for. Diagnosis/Treatment History Oncologic History As above Interval History She is here today with left posterior chest/rib pain as her main complaint. She has a dry cough and shortness of breath which are long standing. She is fatigued, and has a diminished appetite but stable weight. Past Medical History: The patient has a past history significant for small cell carcinoma of the lung as detailed above. There is history of centriacinar emphysema and history of obstructive sleep apnea. There is also history of hypertension and hyperlipidemia. As noted, the patient experienced stroke syndrome in Spring 2019, resolved with lytic therapy and the patient developed a bronchopulmonary fistula treated surgically as well as a history of spontaneous pneumothorax treated by chest tube placement temporarily. She is status post hysterectomy and is multi-gravid and postmenopausal. Past Surgical History: Hysterectomy Appendectomy Pleurodesis L lung Tonsillectomy Family History: The patient's father in his 70s from lung cancer associated with tobacco. The patient's mother is alive at age of approximately 83. Social History: Tobacco: The patient smokes one pack per day for approximately 40 years, quitting in the year 2014. Alcohol: The patient does not regularly use alcohol. Illicit drugs: The patient does not use illicit drugs. Allergies / Meds Allergies: Coded Allergies: Sulfa (Sulfonamide Antibiotics) (Verified Adverse Reaction, Mild, nausea, 01/26/19) Home Meds Active Scripts Gabapentin (Neurontin) 100 Mg Capsule, 3 CAP PO TID PRN for NEUROPATHIC PAIN, #270 CAP Prov:LIGIA BEE MD 05/15/20 Nystatin (Nystatin Oral Susp) 100,000 Unit/1 Ml Oral.susp, 5 ML PO QID for 10 Days, #200 ML Prov:LIGIA BEE MD 04/25/20 Potassium Chloride (Potassium Chloride) 20 Meq Tablet.er, 1 TAB PO DAILY for 5 Days, #30 TAB Prov:LIGIA BEE MD 04/25/20 Oxycodone HCl (Oxycodone HCl) 5 Mg Tablet, 5 MG PO QIDP PRN for pain MDD 4 Tablet(s) for 5 Days, #20 TAB Prov:NESS FISH MD 02/20/20 Ondansetron (Ondansetron Odt) 4 Mg Tab.rapdis, 4 MG PO Q6-8HP PRN for nausea/vomiting for 4 Days, #8 TAB Prov:NESS FISH MD 12/28/19 Reported Medications Albuterol Sulf (Albuterol Sulfate) 2.5 Mg/3 Ml Vial.neb, 1 NEB INH PRN PRN for WHEEZING 07/11/20 Guaifenesin/Pseudoephedrne HCl (Mucinex D ER 1,200-120 mg Tab) 1 Each Tab.er.12h, 1 TAB PO BID for 12 Days, #24 TAB 07/11/20 Rivaroxaban (Xarelto) 10 Mg Tablet, 1 TAB PO DAILY 07/11/20 Fexofenadine HCl (Fatou Allergy) 180 Mg Tablet, 1 TAB PO DAILY for allergy symptoms for 14 Days, #14 TAB 07/03/20 Cholecalciferol (Vitamin D3) (Weekly-D) 1,250 Mcg Capsule, 2000 MCG PO, CAP 06/26/20 Aspirin (Aspir 81) 81 Mg Tablet.dr, 1 TAB PO DAILY for pain for 30 Days, #30 TAB 04/03/20 Atorvastatin Calcium (Atorvastatin Calcium) 10 Mg Tablet, 20 MG PO DAILY, TAB 02/20/20 Lidocaine/Prilocaine (Lidocaine-Prilocaine Cream) 2.5%/2.5% Cream..g., 1 DOSE TOP ASDIRECTED, #30 GRAMS 1 Refill Apply dime size to port area. Do not rub in, cover with saran wrap to protect clothing. 02/02/20 Duloxetine Hcl (Cymbalta) 60 Mg Capsule.dr, 60 MG PO DAILY for 30 Days, #30 CAP 01/31/20 Mv-Min/Vit C/Glut/Lysine/Hc124 (Airborne Tablet Chewable) 1 Each Tab.chew, 1 CHW PO DAILY 12/08/19 Duloxetine Hcl (Duloxetine HCl) 30 Mg Capsule.dr, 1 CAP PO DAILY 12/08/19 Fluticasone/Umeclidin/Vilanter (Trelegy Ellipta 100-62.5-25) 1 Each Blst.w.dev, 1 UNIT PO DAILY 12/08/19 Lamotrigine (Lamotrigine) 200 Mg Tablet, 200 MG PO DAILY for 30 Days, #30 TAB 09/08/19 Multivitamin (Multivitamins) 1 Each Tablet, 1 TAB PO DAILY, TAB 09/08/19 Diazepam (Valium) 5 Mg Tab, 5 MG PO PRN PRN for ANXIETY, TAB 12/19/14 Montelukast Sodium (Singulair) 10 Mg Tab, 10 MG PO QHS, TAB 12/19/14 Hydroxyzine HCl (Hydroxyzine HCl) 25 Mg Tab, 25 MG PO PRN PRN for ITCHING, TAB 12/19/14 Discontinued Reported Medications Rivaroxaban (Xarelto) 20 Mg Tablet, 1 TAB PO DAILY for 30 Days, #30 TAB with food 06/26/20 Review of Systems Constitutional: Reports: Fatigue; Denies: Chills, Fever, Night Sweats, Weakness, Weight Loss Eyes: Denies: Vision change HEENT: Denies: Head Aches, Dysphagia, Sore Throat Skin: Denies: Rash, Lesions Pulmonary: Reports: Dyspnea, Cough, Pleuritic Chest Pain Cardiovascular: Denies: Palpitations, Orthopnea, Edema Gastrointestinal: Denies: Nausea, Vomiting, Abdominal Pain, Diarrhea Genitourinary: Denies: Dysuria, Frequency, Incontinence Hematologic: Reports: Enlarged Lymph Nodes; Denies: Bruising, Petecchia Musculoskeletal: Reports: Back pain; Denies: Neck pain, Shoulder pain, Leg pain, Foot pain Neurological: Denies: Weakness, Numbness, Incoordination, Change in Speech, C onfusion, Seizures Psych: Reports: Mood Normal; Denies: Memory Issues, Thoughts of Self Harm Vital Signs Ht 66" Wt 181lb T 97.9 P 118 RR 20 BP 106/68 O2 96% General Exam: Positive: Alert, Cooperative, No Acute Distress Eye Exam: Positive: PERRLA, EOMI ENT EXAM: Positive: Mucous membr. moist/pink, Pharynx Normal Neck Exam: Positive: Supple, Lymphadenopathy (Large right supraclavicular node ~3-4cm firm and fixed) Chest Exam: Positive: Clear to auscultation (Left basilar pleural rub noted. Quiet breath sounds in other lung david) Heart Exam: Positive: Tachycardic, Regular Rhythm Abdomen Exam: Positive: Normal bowel sounds, Soft; Negative: Tenderness Extremity Exam: Negative: Edema Skin Exam: Positive: Nl turgor and temperature Neuro Exam: Positive: Normal Gait, Normal Speech, Normal Tone, Cranial Nerves 3-12 NL Psych Exam: Positive: Mental status NL, Mood NL Diagnostic and Laboratory Diagnostic Review Radiologic images, relevant labs and pathology reports were personally reviewed and discussed with Ms. Zhao. Assessment and Plan Impression Ms. Zhao is a 60 year old female with recurrent SCLC, originally diagnosed in 2014 with LS SCLC of the left chest for which she underwent concurrent chemoradiation to 59.4 Gy in 33 fractions completed 04/05/15. She then underwent PCI 40 Gy in 20 fractions completed 07/23/15. She recurred in the BL chest in early 2019 and had 4 cycles of carbo/ty/atezo completed in March, on single agent atezo she then recurred in the same locations in the chest on scans from June. She is now s/p 1 cycle of cis/ty with a plan for 6 cycles. She has abnormal foci of enhancement on CT head and MRI is pending. Stage ES SCLC, recurrent Performance Status ECOG 1 Plan We had an extensive discussion with Ms. Zhao regarding the diagnosis at hand and available therapeutic options. She is doing fairly well considering the degree of her recurrence and all of the cancer-directed therapies she has endured. I note that the recurrent disease in the left chest as well as prior high-dose RT in the area of her ribs are the likely cause of her pain. This is unlikely to get better even with treatment as I suspect a strong neuropathic component. I explained this to her. She also has a palpable right supraclavicular node which is large, but not near fungating. This would be an easy clinical sign to follow for chemo response. We discussed the role of consolidative thoracic radiotherapy in the setting of a favorable response to this round of chemotherapy. If her disease responds I would strongly recommend we pursue this avenue due to the OS benefit for consolidative RT as shown on the CREST trial as well as the [facility] experience. She previously received a significant dose to the left hemithorax with simple RT technique, meaning that her lung function in the irradiated portals is likely significantly compromised, this allows me to give some dose to the left. As I would have to treat an extensive bilateral thoracic field I would utilize a 4D CT scan for planning which will allow for reduced margins around the parenchymal component of her disease and facilitate lung sparing on the right. I would use VMAT planning due to the prior irradiation. Fortunately, the best studied regimens for consolidation are both lower dose regimens, I would favor 45 Gy in 15 fractions for her. If she has no response to this line of chemotherapy then the impetus to irradiate the chest would be less. I would reserve RT for future palliation in that case. If her MRI brain confirms the presence of metastatic disease I would proceed with salvage SRS to the lesions, given prior WBRT, this could occur in the midst of her chemotherapy. I will follow up her MRI closely. Treatment would be 3-5 fractions. I would then follow her with q3m MRI. We discussed the logistics of receiving radiation therapy in detail including the need for a 1-time planning session. After discussing the risks, benefits and alternatives to radiation therapy, Ms. Zhao was amenable to pursuing radiotherapy contingent upon the MRI results and/or her response to chemo. All questions were answered to the patient's satisfaction. We instructed the patient that if there were any questions,concerns or changes in clinical status in the interim to contact us. Recommendations MRI head as previously ordered If brain metastases present, then would proceed immediately with SRS If no brain metastases would recommend routine MRI surveillance after chemotherapy is complete If she has a OR or CR to current chemotherapy then would strongly recommend consolidative chest RT as described above If she has progression or stable disease I would reserve RT for palliation later on JENIFFER REYES MD Jul 11, 2020 11:31
== END ==
LOC: M ONCR 09:02
PROVIDERS: ATTEND General Practice
DX: C34.02 Malignant neoplasm of left main bronchus (principal); C79.31 Secondary malignant neoplasm of brain; Z87.891 Personal history of nicotine dependence

== ENCOUNTER → 2020-07-12 | Outpatient (CLI) | payer BC ==
--- NOTE | 2020-07-31 09:21 | REP ---
WHOLE BODY BONE SCAN HISTORY: Restaging lung cancer. COMPARISON: None. TECHNIQUE: Following the intravenous administration of 21.9 mCi Technetium-99m MDP, whole body images are obtained in multiple projections. FINDINGS: There is diffuse metastatic infiltration of the posterior left fifth, sixth, and seventh ribs. There is no other evidence of abnormal rib uptake bilaterally. There is focal increased uptake in the right supraclavicular region at the site of a previously identified mass. No other significant abnormal uptake is seen in the axial or appendicular skeleton. Renal and bladder activity are seen. IMPRESSION: Diffuse metastatic infiltration with increased heterogeneous uptake diffusely in the posterior left fifth through seventh ribs. Focal increased uptake in the right supraclavicular region at the site of a previously identified mass on PET CT 01/02/[address] exams. No other compelling scintigraphic evidence of osseous metastases. MTDD
== END ==
LOC: M RAD 10:42
PROVIDERS: ATTEND Specialist
DX: C34.90 Malignant neoplasm of unspecified part of unspecified bronchus or lung (principal); C79.51 Secondary malignant neoplasm of bone
CPT/HCPCS: 78306; A9503

== ENCOUNTER → 2020-07-15 | Outpatient (CLI) | payer BC ==
[~2020-07-15] MED LIST changes: +BUPIVACAINE HCL 0.25% 30ML VIAL As Ordered ONE; +ISOVUE-M 300 61% 15ML VIAL As Ordered ONE; +LIDOCAINE 1% SDV 30ML VIAL As Ordered ONE; +TRIAMCINOLONE ACETONIDE SUSP 40 MG/ML VIAL (J3301) As Ordered ONE; +diazePAM 5 MG TAB As Ordered ONE; +oxyCODONE 5MG TAB As Ordered ONE
--- NOTE | 2020-07-31 09:23 | REP ---
LIMITED RIGHT CHEST: 2-VIEWS HISTORY: Left intercostal injection for pain. 16 seconds of fluoroscopy time is reported. FINDINGS: A sequence of two last image hold fluoroscopically obtained spot radiographs of the left chest document needle positioned and contrast injection associated with intercostal nerve block injection procedure. MTDD
--- NOTE | 2020-07-31 09:23 | REP ---
CHEST X-RAY CLINICAL: Rule out pneumothorax. TECHNIQUE: PA and lateral. COMPARISON: 05/28/2020. FINDINGS: Pleural parenchymal changes involving the left hemithorax appear relatively stable. No obvious pneumothorax is identified. The right hemithorax appears relatively well-aerated and clear and again without effusion or pneumothorax. An Infusaport is identified in stable position. The mediastinum and cardiac silhouette are incompletely evaluated due to mediastinal shift and overlying opacities. IMPRESSION: Stable chest x-ray compared to 05/28/2020. No obvious pneumothorax identified. MTDD
== END ==
LOC: M PAIN 08:43
PROVIDERS: ATTEND Anesthesiology
DX: M85.80 Other specified disorders of bone density and structure, unspecified site (principal)
CPT/HCPCS: 64421; 71046; 76000; G0463; J3301; Q9967

== ENCOUNTER → 2020-07-16 | Outpatient (CLI) | payer BC ==
[~2020-07-16] MED LIST changes: -BUPIVACAINE HCL 0.25% 30ML VIAL As Ordered ONE; -ISOVUE-M 300 61% 15ML VIAL As Ordered ONE; -LIDOCAINE 1% SDV 30ML VIAL As Ordered ONE; +PROHANCE 279.3MG/ML 15ML VIAL As Ordered ONE; +PROHANCE 279.3MG/ML 5ML VIAL As Ordered ONE; -TRIAMCINOLONE ACETONIDE SUSP 40 MG/ML VIAL (J3301) As Ordered ONE; -diazePAM 5 MG TAB As Ordered ONE; -oxyCODONE 5MG TAB As Ordered ONE
--- NOTE | 2020-07-16 11:42 | REPVR ---
PROCEDURE INFORMATION: Exam: MR Head Without and With Contrast Exam date and time: 07/16/2020 8:16 AM Age: 60 years old Clinical indication: Condition or disease; History of cancer (specify primary cancer site): ; Primary cancer: Sclc; Additional info: Sclc, mets TECHNIQUE: Imaging protocol: MR of the head without and with intravenous contrast. Contrast material: PROHANCE; Contrast volume: 16 ml; Contrast route: INTRAVENOUS (IV); COMPARISON: MRI-Brain W/O FOLL BY WITH 01/01/2020 8:[address] Head W/O FOLL BY WITH CONTR 07/04/2020 3:06:30 PM FINDINGS: Brain: There are enhancing foci consistent with metastatic disease. This includes nodular 7 mm lesion in right superior vermis, 2.3 mm lesion in left lateral lars, 2.3 mm lesion in left inferior temporal lobe, 8 mm lesion left temporal occipital region, 4.4 mm lesion in postcentral gyrus cortex slightly extending exophytically into the sulcus, and 2.5 mm lesion along body of right lateral ventricle. There is also rim enhancing lesion left occipital region 8 mm lesion, which shows susceptibility on diffusion-weighted images suggesting small amount of hemorrhage. There is also a linear lesion along the lateral left parietal lobe measuring 5.2 mm in length which may be cortical or along the surface the brain. The lesions in the left temporal occipital region and left occipital lobe show adjacent linear enhancement suggesting subarachnoid extension into adjacent sulci. In addition, on sagittal and coronal images, there is suggestion of linear enhancement in posterior left greater than right parietooccipital sulci. This is concerning for mild subarachnoid seeding of tumor. There is surrounding edema around the left temporal occipital, left occipital, left postcentral gyrus lesions and milder adjacent to the right superior vermis lesion. There is no midline shift. Confluency T2 prolongation in the cerebral white matter is nonspecific, but likely secondary to microvascular disease. This could also relate to post radiation change if patient has prior history intracranial metastasis with radiation. There is patchy T2 prolongation in lars likely microvascular change. Diffusion images show no evidence of acute territorial infarct. There is a punctate area of chronic hemorrhage in right cerebellum. Ventricles: No evidence of hydrocephalus Bones/joints: Unremarkable as visualized. Sinuses: Unremarkable as visualized. No acute sinusitis. Mastoid air cells: There is fluid scattered in bilateral mastoid air cells. Orbits: Unremarkable as visualized. No exophthalmos or evidence of mass. Soft tissues: Unremarkable as visualized. IMPRESSION: Multiple foci intraparenchymal contrast enhancement consistent with metastatic disease. There is also linear enhancement either within cortex or along brain surface in left lateral parietal region and evidence of linear enhancement in sulci concerning for mild subarachnoid extension of tumor. Electronically signed by: Susan Garcia On 07/16/2020 11:41:39 AM
== END ==
LOC: M RAD 07:26
PROVIDERS: ATTEND Specialist
DX: C34.90 Malignant neoplasm of unspecified part of unspecified bronchus or lung (principal)
CPT/HCPCS: 70553; A9576

== ENCOUNTER 2020-07-27 09:03 | Emergency (ER) | payer BC ==
[~2020-07-27] VITALS: Ht 167.6 cm; Wt 79.1 kg
[~2020-07-27 09:03] MED LIST changes: -ASPI81CH33 PO; -ATOR1TAB21 PO; -CEFD300C PO; -CEFD300CAP PO; -DOXY-342 PO; -FURO20TA2 PO; -GABA-1171 PO; -Home Oxygen; -LAMI1TAB8 PO; -LASI20TA3 PO; -LISI2.5T2 PO; -METO1TAB32 PO; -POTA20TA6 PO; -PROHANCE 279.3MG/ML 15ML VIAL As Ordered ONE; -PROHANCE 279.3MG/ML 5ML VIAL As Ordered ONE
[2020-07-27] MEDS ORDERED: IPRATROPIUM 0.5MG/ALBUTEROL 2.5MG INH SOL UD 3ML (DUONEB) NEB ONE ×2 (09:45→11:45)
--- NOTE | 2020-07-27 10:34 | REPVR ---
PROCEDURE INFORMATION: Exam: XR Chest, 1 View Exam date and time: 07/27/20 (10:02am) Age: 60 years old Clinical indication: Dyspnea and cough. History of lung cancer. TECHNIQUE: Imaging protocol: Portable CXR Views: 1 view COMPARISON: Chest films of 07/15/20 CT CHEST of 12/08/19 FINDINGS: Comparison is made with chest films done on 07/15/20. Stable heart size. Left lung volume loss again noted. Pleural and parenchymal disease again seen in the left lower lung field. Clearing of streaky, dense opacity in the left infrahilar region. Right-sided central venous infusion catheter remains in place (stable position). Right paratracheal soft tissue fullness again seen (probable adenopathy). No pneumothorax. IMPRESSION: Left lung volume loss again seen. Pleural and parenchymal disease again present in the lower portion of the left hemithorax. Interval clearing of left infrahilar opacity (probable some left lung consolidation and/or atelectasis). A right-sided central venous infusion catheter remains in place. Electronically signed by: Andree Riley On 07/27/2020 10:33:57 AM
[2020-07-27 11:06] LABS: BASO # 0.1 10^3/uL (0.0-0.2); BASO % 0.2 % (0.0-1.0); HEMATOCRIT 28.5 % (36.0-47.0); HEMOGLOBIN 8.4 g/dl (12.0-15.5); LYMPH # 0.3 10^3/uL (1.5-5.0); LYMPH % 0.6 % (24.0-44.0); MEAN CORPUSCULAR HEMOGLOBIN 25.9 pg (27.0-33.0); MEAN CORPUSCULAR HGB CONC 29.5 g/dl (32.0-36.5); MONO # 0.4 10^3/uL (0.0-0.8); MONO % 0.9 % (0.0-5.0); NEUTROPHILS # 37.3 10^3/uL (1.5-8.5); NEUTROPHILS % 96.4 % (36.0-66.0); PLATELET COUNT, AUTOMATED 988 10^3/uL (150-450); RED BLOOD COUNT 3.24 10^6/uL (4.00-5.40)
[2020-07-27 11:14] LABS: WHITE BLOOD COUNT 38.7 10^3/uL (4.0-10.0)
[2020-07-27 11:28] LABS: ALBUMIN 2.9 GM/DL (3.2-5.2); ALT/SGPT 15 U/L (12-78); BILIRUBIN,DIRECT < 0.1 MG/DL (0.0-0.2); BILIRUBIN,TOTAL 0.2 MG/DL (0.2-1.0); TOTAL PROTEIN 6.4 GM/DL (6.4-8.2)
[2020-07-27] MEDS ORDERED: Home Oxygen (13:56)
[2020-07-27 14:58] VITALS: BP 125/66
--- NOTE | 2020-07-28 15:23 | ECGEPIP ---
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 Order Number: [id number] Reading MD: Tiera Urias Measurements Intervals [place] Rate: 101 P: 55 [place]: 159 QRS: 26 QRSD: 87 T: 77 QT: 329 QTc: 427 Interpretive Statements SINUS TACHYCARDIA POSSIBLE LEFT ATRIAL ENLARGEMENT NONSPECIFIC ST & T-WAVE ABNORMALITY ABNORMAL RHYTHM ECG SIMILAR 12/08/19 Electronically Signed on 07-28-2020 15:22:34 EDT by Tiera Urias
[2020-08-14] MEDS ORDERED: XARE10TA PO (14:01)
[2020-09-02] MEDS ORDERED: ASPI81CH33 PO (08:02)
[2020-09-04] MEDS ORDERED: LISI2.5T2 PO (11:05)
[2020-09-04] MEDS ORDERED: POTA20TA6 PO (11:05)
[2020-09-04] MEDS ORDERED: FURO20TA2 PO (11:05)
== END 2020-07-27 15:18 | disposition home or self-care (01) ==
LOC: M ED 09:03
DX: J96.11 Chronic respiratory failure with hypoxia (principal); C34.92 Malignant neoplasm of unspecified part of left bronchus or lung; J98.01 Acute bronchospasm; Z86.73 Personal history of transient ischemic attack (TIA), and cerebral infarction without residual deficits; Z87.891 Personal history of nicotine dependence; Z88.2 Allergy status to sulfonamides; Z79.899 Other long term (current) drug therapy; Z79.51 Long term (current) use of inhaled steroids

== ENCOUNTER → 2020-07-30 | Outpatient (CLI) | payer BC ==
[~2020-07-30] MED LIST changes: +ASPI81CH33 PO; +ATOR1TAB21 PO; +CEFD300C PO; +CEFD300CAP PO; +DOXY-342 PO; +FURO20TA2 PO; +GABA-1171 PO; +Home Oxygen; +LAMI1TAB8 PO; +LASI20TA3 PO; +LISI2.5T2 PO; +METO1TAB32 PO; +POTA20TA6 PO
--- NOTE | 2020-07-30 16:02 | RADONC ---
Radiation Oncology /[facility] Radiation Oncology Consult Date of Service: Jul 30, 2020 Pt Identifier Akila Zhao is a 60 year old female seen for a followup visit today at the department of radiation oncology for a history of SCLC, recurrent (see below). She has undergone restaging MRI brain which showed multiple new metastases. She is seen for consideration of SRS, given her prior WBRT in 2015. 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 She then underwent PCI 40 Gy in 20 fractions completed 07/23/15. She subsequently had a long disease-free interval until recurring in December 2019. Her recurrence is in the BL chest, including the prior radiation port on the left. On the PET-CT from 01/02/20 There are multiple mediastinal nodes, right perihilar parenchymal lesions, right hilar nodes, and right supraclavicular nodes. In the periphery of the right RUL there are several small plural-based nodules with mild uptake. MRI brain at the time of PET demonstrated no metastases. She then underwent carbo/etoposide/atezolizumab for 4 cycles from 01/10/20 to 03/13/20. Post cycle 1 she had a CVA and received TPA with resolution of her symptoms. After chemo, she continued on atezolizumab. Scans from 06/18/20 showed regrowth of most of the lesions in the chest which had initially responded. She then had CT head with contrast which showed some concerning areas of enhancement, MRI head is pending. She has restarted chemotherapy this time cisplatin/etoposide and is s/p cycle 1, with cycle 2 to start on 07/24/20. 6 cycles have been written for. Relevant Data: 07/16/20 MRI brain FINDINGS: Brain: There are enhancing foci consistent with metastatic disease. This includes nodular 7 mm lesion in right superior vermis, 2.3 mm lesion in left lateral lars, 2.3 mm lesion in left inferior temporal lobe, 8 mm lesion left temporal occipital region, 4.4 mm lesion in postcentral gyrus cortex slightly extending exophytically into the sulcus, and 2.5 mm lesion along body of right lateral ventricle. There is also rim enhancing lesion left occipital region 8 mm lesion, which shows susceptibility on diffusion-weighted images suggesting small amount of hemorrhage. There is also a linear lesion along the lateral left parietal lobe measuring 5.2 mm in length which may be cortical or along the surface the brain. The lesions in the left temporal occipital region and left occipital lobe show adjacent linear enhancement suggesting subarachnoid extension into adjacent sulci. In addition, on sagittal and coronal images, there is suggestion of linear enhancement in posterior left greater than right parietooccipital sulci. This is concerning for mild subarachnoid seeding of tumor. There is surrounding edema around the left temporal occipital, left occipital, left postcentral gyrus lesions and milder adjacent to the right superior vermis lesion. There is no midline shift. Confluency T2 prolongation in the cerebral white matter is nonspecific, but likely secondary to microvascular disease. This could also relate to post radiation change if patient has prior history intracranial metastasis with radiation. There is patchy T2 prolongation in lars likely microvascular change. Diffusion images show no evidence of acute territorial infarct. There is a punctate area of chronic hemorrhage in right cerebellum. Ventricles: No evidence of hydrocephalus Bones/joints: Unremarkable as visualized. Sinuses: Unremarkable as visualized. No acute sinusitis. Mastoid air cells: There is fluid scattered in bilateral mastoid air cells. Orbits: Unremarkable as visualized. No exophthalmos or evidence of mass. Soft tissues: Unremarkable as visualized. IMPRESSION: Multiple foci intraparenchymal contrast enhancement consistent with metastatic disease. There is also linear enhancement either within cortex or along brain surface in left lateral parietal region and evidence of linear enhancement in sulci concerning for mild subarachnoid extension of tumor. Interval History Feels well, despite fatigue. Tolerating chemotherapy. Plan for cycle 3 cis/ty week of 08/12/20. Restaging of chest thereafter. Right supraclavicular node is responding per patient. She has no neurologic complaints. No GERARD, N, V, imba leandra. Current Therapy Cis/ty s/p 2 cycles, cycle 3 on 08/12/20 Stage Stage IV SCLC Social History: Tobacco: The patient smokes one pack per day for approximately 40 years, quitting in the year 2014. Alcohol: The patient does not regularly use alcohol. Illicit drugs: The patient does not use illicit drugs. Allergies / Meds Allergies: Coded Allergies: Sulfa (Sulfonamide Antibiotics) (Verified Adverse Reaction, Mild, nausea, 01/26/19) Home Meds Active Scripts [Home Oxygen] No Conflict Check, L NA DAILY, #2 2L NC continuous with portable PO 80% with ambulation Estimated length of need: lifetime ICD R09.02, C34.90 Prov:Jose Cruz Galdamez M.D. 07/27/20 Gabapentin (Neurontin) 100 Mg Capsule, 3 CAP PO TID PRN for NEUROPATHIC PAIN, #270 CAP Prov:LIGIA BEE MD 05/15/20 Oxycodone HCl (Oxycodone HCl) 5 Mg Tablet, 5 MG PO QIDP PRN for pain MDD 4 Tablet(s) for 5 Days, #20 TAB Prov:NESS FISH MD 02/20/20 Ondansetron (Ondansetron Odt) 4 Mg Tab.rapdis, 4 MG PO Q6-8HP PRN for nausea/vomiting for 4 Days, #8 TAB Prov:NESS FISH MD 12/28/19 Reported Medications Albuterol Sulf (Albuterol Sulfate) 2.5 Mg/3 Ml Vial.neb, 1 NEB INH PRN PRN for WHEEZING 07/11/20 Guaifenesin/Pseudoephedrne HCl (Mucinex D ER 1,200-120 mg Tab) 1 Each Tab.er.12h, 1 TAB PO BID for 12 Days, #24 TAB 07/11/20 Rivaroxaban (Xarelto) 10 Mg Tablet, 1 TAB PO DAILY 07/11/20 Fexofenadine HCl (Fatou Allergy) 180 Mg Tablet, 1 TAB PO DAILY for allergy symptoms for 14 Days, #14 TAB 07/03/20 Cholecalciferol (Vitamin D3) (Weekly-D) 1,250 Mcg Capsule, 2000 MCG PO, CAP 06/26/20 Aspirin (Aspir 81) 81 Mg Tablet.dr, 1 TAB PO DAILY for pain for 30 Days, #30 TAB 04/03/20 Atorvastatin Calcium (Atorvastatin Calcium) 10 Mg Tablet, 20 MG PO DAILY, TAB 02/20/20 Lidocaine/Prilocaine (Lidocaine-Prilocaine Cream) 2.5%/2.5% Cream..g., 1 DOSE TOP ASDIRECTED, #30 GRAMS 1 Refill Apply dime size to port area. Do not rub in, cover with saran wrap to protect clothing. 02/02/20 Duloxetine Hcl (Cymbalta) 60 Mg Capsule.dr, 60 MG PO DAILY for 30 Days, #30 CAP 01/31/20 Mv-Min/Vit C/Glut/Lysine/Hc124 (Airborne Tablet Chewable) 1 Each Tab.chew, 1 CHW PO DAILY 12/08/19 Duloxetine Hcl (Duloxetine HCl) 30 Mg Capsule.dr, 1 CAP PO DAILY 12/08/19 Fluticasone/Umeclidin/Vilanter (Trelegy Ellipta 100-62.5-25) 1 Each Blst.w.dev, 1 UNIT PO DAILY 12/08/19 Lamotrigine (Lamotrigine) 200 Mg Tablet, 200 MG PO DAILY for 30 Days, #30 TAB 09/08/19 Multivitamin (Multivitamins) 1 Each Tablet, 1 TAB PO DAILY, TAB 09/08/19 Diazepam (Valium) 5 Mg Tab, 5 MG PO PRN PRN for ANXIETY, TAB 12/19/14 Montelukast Sodium (Singulair) 10 Mg Tab, 10 MG PO QHS, TAB 12/19/14 Hydroxyzine HCl (Hydroxyzine HCl) 25 Mg Tab, 25 MG PO PRN PRN for ITCHING, TAB 12/19/14 Discontinued Scripts Nystatin (Nystatin Oral Susp) 100,000 Unit/1 Ml Oral.susp, 5 ML PO QID for 10 Days, #200 ML Prov:LIGIA BEE MD 04/25/20 Potassium Chloride (Potassium Chloride) 20 Meq Tablet.er, 1 TAB PO DAILY for 5 Days, #30 TAB Prov:LIGIA BEE MD 04/25/20 Review of Systems Review of Systems Constitutional: Reports: Fatigue; Denies: Fever, Night Sweats, Weakness Eyes: Denies: Pain, Vision change HEENT: Denies: Head Aches Skin: Denies: Rash, Lesions Pulmonary: Reports: Dyspnea; Denies: Cough Cardiovascular: Denies: Chest Pain, Palpitations Gastrointestinal: Denies: Nausea, Vomiting, Abdominal Pain Genitourinary: Denies: Dysuria, Frequency, Incontinence Hematologic: Reports: Bruising; Denies: Bleeding Excessively Endocrine: Denies: Polydipsia, Polyphagia Musculoskeletal: Denies: Neck pain, Shoulder pain, Back pain Neurological: Denies: Weakness, Numbness, Change in Speech, Confusion Psych: Reports: Mood Normal Physical Examination General Exam: Positive: Alert, Cooperative Eye Exam: Positive: PERRLA, EOMI ENT EXAM: Positive: Atraumatic, Pharynx Normal Neck Exam: Positive: Supple, Lymphadenopathy (Soft mobile right supraclavicular LN) Chest Exam: Positive: Clear to auscultation, Normal air movement Heart Exam: Positive: Rate Normal, Regular Rhythm Abdomen Exam: Positive: Soft; Negative: Tenderness Extremity Exam: Negative: Edema Skin Exam: Positive: Nl turgor and temperature; Negative: Rash Neuro Exam: Positive: Normal Gait, Normal Speech, Strength at 5/5 X4 ext, Cranial Nerves 3-12 NL Psych Exam: Positive: Mental status NL, Mood NL Diagnostic and Laboratory Diagnostic Review Radiologic images, relevant labs and pathology reports were personally reviewed and discussed with Ms. Zhao. Assessment and Plan Impression Assessment Ms. 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 She then underwent PCI 40 Gy in 20 fractions completed 07/23/15. She recurred in the BL chest in early 2019 and had 4 cycles of carbo/ty/atezo completed in March, on single agent atezo she then recurred in the same locations in the chest on scans from June. She is now s/p 1 cycle of cis/ty with a plan for 6 cycles. She has abnormal foci of enhancement on CT head and MRI 07/16/20 confirmed multiple new small brain metastases. She has at least 10 small lesions which are of low cumulative volume and as she is maintaining a good performance status and seemingly responding to chemotherapy in the right neck (restaging chest CT planned for post-cycle 3 of chemotherapy) I think it is in her best interest to pursue aggressive treatment of these new brain metastases. I recommend SRS (given prior WBRT in 2014) 27 Gy in 3 fractions using VMAT monoisocentric technique. I will treat all metastases discernible on her MRI. I am ordering a new MRI scan given her prior is now >2 weeks old (07/16/20) and had significant motion artifact. This can be completed the week of 08/12/20 which is when she will have chemo, thus we will treat her the week after chemo and not concurrently. Her simulation can occur the week of 08/05 or 08/12, as she is not on decadron (for lack of appreciable neuro symptoms) and thus mask fit should not be an issue even with 2 weeks latency between sim and treatment. Performance Status ECOG 1 Plan SRS 27 Gy in 3 fractions with VMAT Simulation in the coming week MRI head week of 08/12/20 for planning Treatment week of 08/19/20 Will consider chest RT following completion of planned chemo as previously discussed (07/11/20 note) Ms. Zhao was encouraged to call with questions or concerns in the interim period. JENIFFER REYES MD Jul 30, 2020 16:02
== END ==
LOC: M ONCR 14:50
PROVIDERS: ATTEND Radiology Radiation Oncology
DX: C79.31 Secondary malignant neoplasm of brain (principal); C34.02 Malignant neoplasm of left main bronchus

== ENCOUNTER → 2020-08-12 | Outpatient (CLI) | payer BC ==
[~2020-08-12] MED LIST changes: -ATOR1TAB21 PO; -CEFD300CAP PO; -FURO20TA2 PO; -GABA-1171 PO; -LAMI1TAB8 PO; -LISI2.5T2 PO; -METO1TAB32 PO; -POTA20TA6 PO; +PROHANCE 279.3MG/ML 15ML VIAL As Ordered ONE; +PROHANCE 279.3MG/ML 5ML VIAL As Ordered ONE; -TREL1AER INH; +TREL1AER PO
--- NOTE | 2020-08-12 15:43 | REPVR ---
PROCEDURE INFORMATION: Exam: MR Head Without and With Contrast Exam date and time: 08/12/2020 3:12 PM Age: 60 years old Clinical indication: Condition or disease; Primary brain cancer; Additional info: Brain mets, for treatment planning TECHNIQUE: Imaging protocol: MR of the head without and with intravenous contrast. Contrast material: PROHANCE; Contrast volume: 16 ml; Contrast route: INTRAVENOUS (IV); COMPARISON: MRI-Brain W/O FOLL BY WITH 07/16/2020 7:45 AM FINDINGS: Brain: Examination reveals significant interval decrease in the size of the multiple intracranial enhancing metastasis noted on the previous MRI dated 07/16/2020. For example the largest lesion in the left occipital lobe measures 3 mm and previously measuring 8 mm. No new lesions are seen. This is consistent with good response to treatment.Followup is recommended as clinically warranted. No acute infarction, acute hemorrhage or midline shift is seen. There is moderate patchy increased T2 signal intensity within the bilateral cerebral periventricular white matter, consistent with chronic microvascular ischemic changes versus changes related to treatment of metastasis.Chronic ischemic changes are seen in the lars. There is no abnormal diffusion weighted signal intensity to suggest an acute ischemic event. There is mild diffuse cerebral atrophy present, consistent with this patient's age. Cerebral ventricles: The ventricular system demonstrates mild diffuse compensatory enlargement. Bones/joints: Unremarkable. Paranasal sinuses: Mild mucosal thickening is seen in the paranasal sinuses. Mastoid air cells: Bilateral mastoid effusions/mastoiditis. Orbits: Unremarkable. Soft tissues: Unremarkable. IMPRESSION: 1. Examination reveals significant interval decrease in the size of the multiple intracranial enhancing metastasis noted on the previous MRI dated 07/16/2020. For example the largest lesion in the left occipital lobe measures 3 mm and previously measuring 8 mm. No new lesions are seen. This is consistent with good response to treatment.Followup is recommended as clinically warranted. 2. No acute infarction, acute hemorrhage or midline shift is seen. 3. Bilateral mastoid effusions/mastoiditis. Electronically signed by: Devante Castellanos On 08/12/2020 15:43:09 PM
== END ==
LOC: M RAD 13:57
PROVIDERS: ATTEND General Practice
DX: C79.31 Secondary malignant neoplasm of brain (principal); H70.93 Unspecified mastoiditis, bilateral
CPT/HCPCS: 70553; A9576

== ENCOUNTER 2020-08-15 09:59 | Emergency (ER) | payer BC ==
[~2020-08-15] VITALS: Ht 167.6 cm; Wt 86.9 kg
[~2020-08-15 09:59] MED LIST changes: -ASPI81CH33 PO; -CEFD300C PO; -DOXY-342 PO; -LASI20TA3 PO; -PROHANCE 279.3MG/ML 15ML VIAL As Ordered ONE; -PROHANCE 279.3MG/ML 5ML VIAL As Ordered ONE
--- NOTE | 2020-08-15 11:15 | REPVR ---
PROCEDURE INFORMATION: Exam: XR Chest, 1 View Exam date and time: 08/15/2020 11:06 AM Age: 60 years old Clinical indication: Shortness of breath; Additional info: Dyspnea/cough TECHNIQUE: Imaging protocol: XR of the chest Views: 1 view. COMPARISON: CR PORTABLE CHEST X-RAY 07/27/2020 9:56 AM FINDINGS: Tubes, catheters and devices: A right-sided Port-A-Cath is again present. Lungs: See "Pleural space" finding. Pleural space: There is increasing confluent opacity at the left base, relating to enlarging pleural effusion with increasing underlying atelectasis/infiltrate. Mild new patchy opacity at the right base could reflect pneumonia. There is again volume loss of the left lung with postoperative changes. Heart/Mediastinum: The cardiomediastinal silhouette is fairly stable in appearance. The cardiomediastinal silhouette is stable in appearance allowing for differences in positioning. Bones/joints: Unremarkable. IMPRESSION: Increasing confluent left basilar opacity as compared with 07/27/20, relating to enlarging pleural effusion and increasing underlying atelectasis/infiltrate. Mild new patchy right basilar opacity could reflect pneumonia. Electronically signed by: Darin Bellamy On 08/15/2020 11:15:16 AM
[2020-08-15] MEDS ORDERED: AZITHROMYCIN INJ 500 MG, VIAL MATE ADAPTER 1 EACH in D5W 250 ML IV ONE (11:30)
[2020-08-15] MEDS ORDERED: cefTRIAXone SOD 2 GM in D5W MINI-BAG PLUS 50 ML IV ONE (11:30)
[2020-08-15] MEDS ORDERED: IPRATROPIUM 0.5MG/ALBUTEROL 2.5MG INH SOL UD 3ML (DUONEB) NEB ONE (11:30)
[2020-08-15 11:31] LABS: BASO % 0.1 % (0.0-1.0); EOS % 0.1 % (0.0-3.0); HEMATOCRIT 29.5 % (36.0-47.0); HEMOGLOBIN 8.7 g/dl (12.0-15.5); LYMPH # 0.9 10^3/uL (1.5-5.0); LYMPH % 8.2 % (24.0-44.0); MEAN CORPUSCULAR HEMOGLOBIN 27.1 pg (27.0-33.0); MEAN CORPUSCULAR HGB CONC 29.5 g/dl (32.0-36.5); MEAN CORPUSCULAR VOLUME 91.9 fl (80.0-96.0); MONO # 0.7 10^3/uL (0.0-0.8); MONO % 6.7 % (0.0-5.0); NEUTROPHILS # 8.9 10^3/uL (1.5-8.5); NEUTROPHILS % 83.2 % (36.0-66.0); PLATELET COUNT, AUTOMATED 648 10^3/uL (150-450); RED BLOOD COUNT 3.21 10^6/uL (4.00-5.40); WHITE BLOOD COUNT 10.7 10^3/uL (4.0-10.0)
[2020-08-15 11:45] LABS: INR 1.21; PROTHROMBIN TIME 15.6 SECONDS (12.5-14.3)
[2020-08-15 11:47] LABS: VENOUS BASE EXCESS 0.2 (-2.0-2.0); VENOUS HCO3 25.9 MEQ/L (23.0-27.0); VENOUS O2 SATURATION 88.5 % (60.0-80.0); VENOUS PARTIAL PRESSURE CO2 47.1 mmHg (38.0-50.0); VENOUS PARTIAL PRESSURE O2 60.8 mmHg (30.0-50.0); VENOUS PH 7.358 UNITS (7.330-7.430); VENOUS STANDARD HCO3 24.5 MEQ/L; VENOUS TOTAL CO2 27.3 MEQ/L (24.0-28.0)
[2020-08-15 12:05] LABS: BILIRUBIN,DIRECT 0.1 MG/DL (0.0-0.2); BILIRUBIN,TOTAL 0.3 MG/DL (0.2-1.0); THYROID STIMULATING HORMONE 2.87 uIU/ML (0.358-3.740); THYROXINE (T4) 7.2 UG/DL (4.5-12.0); TOTAL PROTEIN 6.4 GM/DL (6.4-8.2)
[2020-08-15] MEDS ORDERED: CEFD300C PO (12:23)
[2020-08-15] MEDS ORDERED: DOXY-342 PO (12:23)
[2020-08-15] MEDS ORDERED: LASI20TA3 PO (12:24)
[2020-08-15] MEDS ORDERED: PRED20TA PO (12:26)
[2020-08-15 13:45] VITALS: BP 136/61
[2020-08-15] MEDS ORDERED: SODIUM CHLORIDE 0.9% INJ 10 ML SYR IV PRN (14:00)
--- NOTE | 2020-08-15 19:29 | ECGEPIP ---
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
--- NOTE | 2020-08-17 08:30 | ED PDOC ---
Post-Departure Follow-Up radiology report faxed to Damaris [facility] Sarah MD Aug 17, 2020 08:30
[2020-09-02] MEDS ORDERED: ASPI81CH33 PO (08:02)
[2020-09-04] MEDS ORDERED: FURO20TA2 PO (11:05)
[2020-09-04] MEDS ORDERED: POTA20TA6 PO (11:05)
[2020-09-04] MEDS ORDERED: LISI2.5T2 PO (11:05)
== END 2020-08-15 14:03 | disposition left against medical advice (07) ==
LOC: M ED 09:59
DX: J18.9 Pneumonia, unspecified organism (principal); I11.0 Hypertensive heart disease with heart failure; C34.92 Malignant neoplasm of unspecified part of left bronchus or lung; E78.5 Hyperlipidemia, unspecified; G47.30 Sleep apnea, unspecified; Z88.2 Allergy status to sulfonamides; Z87.891 Personal history of nicotine dependence; Z79.899 Other long term (current) drug therapy

== ENCOUNTER 2020-08-23 13:30 | Outpatient (RCR) | payer BC ==
[2020-08-08 15:11] LABS: BASO # 0.1 10^3/uL (0.0-0.2); BASO % 0.7 % (0.0-1.0); EOS % 0.3 % (0.0-3.0); HEMATOCRIT 35.7 % (36.0-47.0); HEMOGLOBIN 10.5 g/dl (12.0-15.5); LYMPH # 0.9 10^3/uL (1.5-5.0); LYMPH % 10.2 % (24.0-44.0); MEAN CORPUSCULAR HEMOGLOBIN 26.9 pg (27.0-33.0); MEAN CORPUSCULAR HGB CONC 29.4 g/dl (32.0-36.5); MEAN CORPUSCULAR VOLUME 91.5 fl (80.0-96.0); MONO # 0.7 10^3/uL (0.0-0.8); MONO % 7.9 % (0.0-5.0); NEUTROPHILS # 6.9 10^3/uL (1.5-8.5); NEUTROPHILS % 79.7 % (36.0-66.0); PLATELET COUNT, AUTOMATED 478 10^3/uL (150-450); WHITE BLOOD COUNT 8.7 10^3/uL (4.0-10.0)
[~2020-08-23 13:30] MED LIST changes: +CEFD300C PO; +DOXY-342 PO; +LASI20TA3 PO
[2020-09-02] MEDS ORDERED: ASPI81CH33 PO (08:02)
[2020-09-04] MEDS ORDERED: POTA20TA6 PO (11:05)
[2020-09-04] MEDS ORDERED: FURO20TA2 PO (11:05)
[2020-09-04] MEDS ORDERED: LISI2.5T2 PO (11:05)
== END 2020-08-31 ==
LOC: M ONCR 13:30
PROVIDERS: ATTEND General Practice
DX: C79.31 Secondary malignant neoplasm of brain (principal); C34.02 Malignant neoplasm of left main bronchus

== ENCOUNTER → 2020-08-30 | Outpatient (CLI) | payer BC ==
[~2020-08-30] MED LIST changes: +ASPI81CH33 PO; +ATOR1TAB21 PO; +FURO20TA2 PO; +GABA-1171 PO; +LAMI1TAB8 PO; +LISI2.5T2 PO; +METO1TAB32 PO; +POTA20TA6 PO; +TREL1AER INH; -TREL1AER PO
--- NOTE | 2020-09-07 02:16 | ECWPNPC ---
PATIENT NAME: DIONE ARELLANO : 1960 GENDER: FEMALE VISIT DATE: 08/30/2020 DISCHARGE DATE: 08/30/20 1123 VISIT LOCKED DATE TIME: PHYSICIAN: KADEN PENA MD RESOURCE: KADEN PENA MD REASON FOR APPOINTMENT 1. 1 MONTH F/U HISTORY OF PRESENT ILLNESS GENERAL: 60-YEAR-OLD FEMALE PATIENT WITH A HISTORY OF CHRONIC THORACIC PAIN. THE PATIENT DESCRIBES THE PAIN ACHING AND SEVERE WITH A PAIN SCORE RANGING FROM 1-4/10 DEPENDING ON PHYSICAL ACTIVITY. THE PATIENT HAD AN INTERCOSTAL INJECTION AT LEFT T8-T9. SHE STATES THAT SHE IS STILL GETTING RELIEF FROM IT. PATIENT DENIES UNEXPLAINABLE WEIGHT LOSS, FEVER, CHILLS, NEW CHANGES ON HER URINARY OR BOWEL CONTROL. PAIN CENTER INTAKE QUESTIONS: DO YOU HAVE A HISTORY OF MRSA? :NO DO YOU TAKE A BLOOD THINNERS? :NO DO YOU HAVE ANY BLEEDING DISORDERS? :NO ANY NEW NUMBNESS OR WEAKNESS IN YOUR LEGS OR ARMS? :NO ANY PACEMAKER,DEFIBRILLATOR, OR DORSAL COLUMN STIMULATOR? :NO DO YOU HAVE ANY RASHES OR OPEN SORES? :NO ARE YOU ALLERGIC TO IV DYE? :NO ARE YOU DIABETIC? :NO ANY NEW PROBLEMS WITH YOUR MEDICATIONS? :NO HAVE YOU RECEIVED A VACCINE IN THE PAST 30 DAYS? :NO DO YOU PLAN TO RECEIVE A VACCINE IN THE NEXT 21 DAYS? :NO DO YOU NEED ANY PRESCRIPTION? :NO DO YOU TAKE ANY IMMUNOSUPPRESSIVE MEDICATIONS? :NO IS THERE A CHANCE YOU COULD BE ? :NO ARE YOU BREAST FEEDING? :NO FALL RISK SCREENING: SCREENING :NO FALLS REPORTED IN THE LAST YEAR PAIN SCREENING: PATIENT HAS A COMPLAINT OF ACUTE OR CHRONIC PAIN :YES LOCATION OF PAIN:OTHER: LEFT THORACIC REGION INTENSITY OF PAIN (SCALE OF 1 TO 10):4 DURATION:INTERMITTENT PAIN IS INCREASED BY:ACTIVITIES PAIN IS DECREASED BY: SUPPORT TO THE AREA NURSING NOTE: -. CURRENT MEDICATIONS TAKING GABAPENTIN 100 MG CAPSULE 1 CAPSULE ORALLY THREE TIMES DAILY TAKING MORPHINE SULFATE ER 15 MG TABLET EXTENDED RELEASE 1 TABLET ORALLY EVERY 12 HRS TAKING OXYCODONE HCL 5 MG TABLET 1 TABLET NEEDED ORALLY EVERY 6 HRS TAKING ONDANSETRON HCL 4 MG TABLET 1 TABLET ORALLY ONCE A DAY TAKING CETIRIZINE HCL 10 MG TABLET 1 TABLET ORALLY ONCE A DAY TAKING ASPIRIN 81 81 MG TABLET CHEWABLE 1 TABLET ORALLY ONCE A DAY TAKING ATORVASTATIN CALCIUM 10 MG TABLET 1 TABLET ORALLY ONCE A DAY TAKING LIDOCAINE-PRILOCAINE 2.5-2.5 % CREAM DIRECTED EXTERNALLY TAKING DULOXETINE HCL 60 MG CAPSULE DELAYED RELEASE PARTICLES 1 CAPSULE ORALLY ONCE A DAY TAKING DULOXETINE HCL 30 MG CAPSULE DELAYED RELEASE PARTICLES 1 CAPSULE ORALLY ONCE A DAY TAKING VITAMIN D 50 MCG (2000 UT) TABLET 1 TABLET ORALLY ONCE A DAY TAKING AIRBORNE - TABLET CHEWABLE DIRECTED ORALLY TAKING TRELEGY ELLIPTA 100-62.5-25 MCG/INH AEROSOL POWDER BREATH ACTIVATED 1 PUFF INHALATION ONCE A DAY TAKING LAMOTRIGINE 200 MG TABLET 1 TABLET ORALLY ONCE A DAY TAKING MULTIVITAMIN - TABLET 1 TABLET ORALLY ONCE A DAY TAKING DIAZEPAM 5 MG TABLET 1 TABLET NEEDED ORALLY ONCE A DAY TAKING MONTELUKAST SODIUM 10 MG TABLET 1 TABLET ORALLY ONCE A DAY TAKING HYDROXYZINE HCL 25 MG TABLET 1 TABLET NEEDED ORALLY EVERY 8 HRS TAKING XARELTO 10 MG TABLET 1 TABLET WITH FOOD ORALLY ONCE A DAY NOT-TAKING LOVENOX 120 MG/0.8ML SOLUTION 1 INJECTION SUBCUTANEOUS DAILY MEDICATION LIST REVIEWED AND RECONCILED WITH THE PATIENT PAST MEDICAL HISTORY LUNG CANCER AMXIETY DEPRESSION HIGH CHOLESTEROL TIA IN DECEMBER 2019 ON AIRPLANE ALLERGIES SULFA (FOR ALLERGY USE ONLY): ANAPHYLAXIS - ALLERGY - CRITICALITY HIGH - ONSET DATE 05/09/2020 SURGICAL HISTORY RIGHT GREAT TOE TUBAL LIGATION PARTIAL HYSTERECTOMY APPENDECTOMY MEDIOSCOPY EGD THORACOTOMY [place] FAMILY HISTORY FATHER: , DIAGNOSED WITH DIABETES, OTHER MALIGNANT NEOPLASM OF UNSPECIFIED SITE MOTHER: ALIVE FATHER LUNG CANCER. SOCIAL HISTORY GENERAL: TOBACCO USE ARE YOU A:FORMER SMOKER HOW LONG HAS IT BEEN SINCE YOU LAST SMOKED? QUIT 2013 LATEX QUESTIONNAIRE LATEX ALLERGY : HAVE YOU EVER DEVELOPED ANY TYPE OF REACTION AFTER HANDLING LATEX PRODUCTS SUCH RUBBER GLOVES, CONDOMS, DIAPHRAGMS, BALLOONS, SOCKS, OR UNDERWEAR?NO LATEX ALLERGY : HAVE YOU EVER DEVELOPED ANY TYPE OF REACTION DURING OR AFTER DENTAL APPOINTMENT, VAGINAL/RECTAL EXAMINATION, SURGICAL PROCEDURE, OR ANY OTHER EXPOSURE?NO DATE ASKED : 05/09/2020 LATEX RISK : HAVE YOU EVER HAD ANY DIFFICULTY BREATHING OR HIVES AFTER EATING OR HANDLING ANY FRUITS, OR VEGETABLES; SUCH KIWI, BANANAS, STONE FRUITS, OR CHESTNUTSNO LATEX RISK : DO YOU HAVE A PREVIOUS PERSONAL HISTORY OF MORE THAN NINE SURGERIES, SPINA BIFIDA, OR REPEATED CATHERIZATIONS? YES - PLEASE INDICATE : > 9 SURGERIES LATEX RISK : ARE YOU FREQUENTLY EXPOSED TO LATEX PRODUCTS IN YOUR OCCUPATION?NO CONFUCIANISM CONFUCIANISM NO EPISCOPALIAN BELIEFS THAT WOULD IMPACT HEALTH CARE. LANGUAGE LANGUAGES SPOKEN:SURINAMESE LEARNING BARRIERS / SPECIAL NEEDS BARRIERS TO LEARNING?NO HEARING IMPAIRED?NO VISION IMPAIRED?YES COGNITIVELY IMPAIRED?NO :CORRECTIVE LENSES DOESNT WEAR READINESS TO LEARN?YES LEARNING PREFERENCES?NO LEARNING CAPABILITIES PRESENT?YES EMOTIONAL BARRIERS?NO SPECIAL DEVICES?NO 1ST PRESSMAN ON WEB PRESS NEEDED?NO MARITAL STATUS: . PATIENT DESCRIBES PAIN :IT COMES AND GOES, SHARP, SHOOTING NO PAIN NOW FROM 0-10, WHAT LEVEL IS YOUR PAIN TODAY?8 PRECIPITATING FACTORS MOVEMENT OR STRETCHING IMPACT ON FUNCTION CANNOT SLEEP, UNABLE TO DO CERTAIN ACTIVITIES WHEN DID YOU LAST EAT? 0900, [employer] WHEN DID YOU LAST DRINK? CURRENT WATER WHAT DID YOU LAST DRINK? 10 MIN AGO DO YOU TAKE ANY BLOOD THINNERS?YES LOVENOX LAST DOSE THIS MORNING ARE YOU ALLERGIC TO SHELLFISH OR IV DYE?NO ARE YOU DIABETIC?NO DO YOU HAVE A PACEMAKER OR DEFIBRILLATOR?NO HOSPITALIZATION/MAJOR DIAGNOSTIC PROCEDURE DYSPNEA.. COLLAPSED LUNG TIA REVIEW OF SYSTEMS CONSTITUTIONAL: ANY RECENT FEVER NO . CHILLS NO . WEIGHT CHANGE OF UNKNOWN REASONS NO . GASTROENTEROLOGY: NEW UNEXPLAINABLE CHANGES IN BOWEL CONTROL NO . CONSTIPATION NO . GENITOURINARY: ANY NEW CHANGE IN BLADDER CONTROL? NO . NEUROLOGY: NEW ONSET DIZZINESS OR NEUROLOGICAL CHANGES NOT MENTIONED NO . NEW NUMBNESS OR PAIN PATTERNS NOT MENTIONED AND PERTINENT TO TODAY'S VISIT NO . CARDIOLOGY: NEW CHEST PRESSURE NO . NEW CHEST PAIN NO . RESPIRATORY: UNEXPLAINABLE COUGH NO . NEW SHORTNESS OF BREATH NO . VITAL SIGNS WT 180.4 LBS, HT 68 IN, BMI 27.43 INDEX, BP 123/60 MM HG, HR 98 /MIN, RR 18 /MIN, TEMP 96.9 F, OXYGEN SAT % 94%, SAFE IN ENV? (Y/N) YES, NA INITIALS SC 10:26, REVIEWED BY: KG. EXAMINATION GENERAL EXAMINATION: THE PATIENT IS ALERT, ORIENTED TIMES THREE AND COOPERATIVE. HEART SHOWS REGULAR RHYTHM, NO MURMURS AND NO GALLOPS. LUNGS ARE CLEAR TO AUSCULTATION. THE LEFT LUNG HAS A LOWER SOUND. TENDERNESS IN THE INTERCOSTAL AREA IN THE LEFT CHEST WALL. 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 ARELLANO. SHE IS STILL GETTING PAIN RELEIF FROM THE LAST INTERCOSTAL INJECTION. I SUGGEST THAT WE WAIT UNTIL THE PAIN COMES BACK BEFORE WE DO ANOTHER BLOCK. THE PATIENT WILL FOLLOW UP IN 2 MONTHS AND SHE CAN CALL SOONER IF NEEDED. THE PATIENT UNDERSTANDS AND AGREES WITH THE PLAN. I, ANABELLA POLANCO, DOCUMENTED THE ABOVE INFORMATION ACTING A SCRIBE FOR DR. PENA. I HAVE REVIEWED THE ABOVE DOCUMENT, WRITTEN BY ANABELLA POLANCO, VEGETABLE WASHING MACHINE OPERATOR, AND I VERIFY THAT IT IS ACCURATE. OTHER CHRONIC PAIN PAIN PROCEDURE LOGDATE OF [id number]/2020PROCEDURE:INTERCOSTAL BLOCK LEFT T8-9AMOUNT OF PRE SEDATEVALIUM 5 MG OXYCODONE 5 MGRESULT:GOOD PAIN RELIEF, STILL GETTING RELIEF PROCEDURE CODES FA211 ESTABILISHED PATIENT [facility] CHARGE DISPOSITION & COMMUNICATION FOLLOW UP FOLLOW UP WITH DR. Hameed IN 2 MONTHS (REASON: FOLLOW UP) ELECTRONICALLY SIGNED BY KADEN PENA MD, MD ON 09/06/2020 AT 02:21 PM EST DISCLAIMER : THIS IS A VISIT SUMMARY EXTRACTED FROM THE [employer] CHART. IT IS NOT A COPY OF THE [employer] PROGRESS NOTE. MTDD
== END ==
LOC: M PAIN 10:00
PROVIDERS: ATTEND Anesthesiology
DX: G58.8 Other specified mononeuropathies (principal); G89.29 Other chronic pain; R07.89 Other chest pain; Z98.890 Other specified postprocedural states; Z86.73 Personal history of transient ischemic attack (TIA), and cerebral infarction without residual deficits; Z86.59 Personal history of other mental and behavioral disorders; Z87.891 Personal history of nicotine dependence; Z88.2 Allergy status to sulfonamides; Z79.01 Long term (current) use of anticoagulants; Z79.51 Long term (current) use of inhaled steroids; Z79.82 Long term (current) use of aspirin; Z79.891 Long term (current) use of opiate analgesic; Z79.899 Other long term (current) drug therapy

== ENCOUNTER 2020-09-07 15:32 | Inpatient (IN) | payer BC ==
[~2020-09-07] VITALS: Ht 172.7 cm; Wt 78.2 kg
[~2020-09-07 15:32] MED LIST changes: -ATOR1TAB21 PO; -GABA-1171 PO; -LAMI1TAB8 PO; -METO1TAB32 PO
--- NOTE | 2020-09-07 16:44 | REP ---
INDICATION: Altered Mental Status. COMPARISON: MRI brain 08/12/2020, CT with and without contrast 07/04/2020 TECHNIQUE: Non-contrast CT brain with coronal soft tissue reconstructions provided. Technologist notes indicate the patient is unable to remain still, somewhat limiting the examination. FINDINGS: The lateral ventricles are midline symmetric and dilated with 3rd and 4th ventricle is also mildly dilated there is diffuse cerebral and cerebellar atrophy and all of this is proportionate. The atrophy is much greater than expected for age there is extensive periventricular low-density white matter change throughout the cerebral hemispheres and in the pattern similar the previous study. However, the area with more intense hypodensity in the left posterior parietal temporal region from the previous study show some improvement. Lateral aspect of the left cerebellar hemisphere and in the cerebellar vermis also show less low-density today suggesting improvement of edema. I do not see a vascular territory infarct, intra or extra-axial hemorrhage, a definite mass effect on the ventricular system or abnormal calcifications. Mastoids and visualized sinuses are clear. The skull base and calvarium were unremarkable. IMPRESSION: 1. Ventriculomegaly and atrophy greater than expected for age but in proportion. Cerebral and cerebellar atrophy noted and extensive white matter heterogeneous low-density changes throughout. Most of this is likely chronic small vessel ischemic change but some post treatment change could be present. 2. Areas of more of low density in the posterior left temporoparietal region and elsewhere on the previous study show less low-density today suggesting lessening of edema at sites of metastatic disease. 3. No new findings, acute infarct, intra or extra-axial hemorrhage, destructive bone lesion nor other acute finding. <Electronically signed by Sanket Muro > 09/07/20 1640
[2020-09-07] MEDS ORDERED: dexameTHASONE 20MG/5ML VIAL (J1100 PER 1MG) IV ONE (17:00)
[2020-09-07] MEDS: COMBIVENT RESPIMAT 100-20MCG INHALER 4GM INH SCH ×3 (17:05→18:23)
--- NOTE | 2020-09-07 17:13 | REP ---
INDICATION: Altered Mental Status. COMPARISON: AP chest 08/15/2020, 07/27/2020; CT 06/18/2020 TECHNIQUE: AP seated portable chest FINDINGS: There is an indwelling port catheter via the right jugular route with its tip just into the right atrium. There is enlargement of the right paratracheal mass density compared to the previous CT and it may be mildly increased from the previous portable chest 08/15/2020. Postoperative changes in the left hemithorax with confluent mass/scar, elevation of the left hilum in linear stranding. Lateral pleural thickening or fluid in the mid lateral chest and volume loss with scarring and stranding in the base on the left patchy infiltrate and effusion suggested in the left base as before. Bones demineralized. IMPRESSION: 1. Enlarging right paratracheal mass since the CT in June, probably slightly larger than the chest x-ray last month. 2. Postoperative changes left hemithorax with volume loss, infiltrate and effusion suggested at the left base and conglomerate mass/scar at the left hilum with surgical clips and retraction of the hilum upward. Volume loss as well as lateral pleural thickening or fluid in the mid chest. Increase in the size and density of the opacity at the perihilar suprahilar region on the left compared to the previous x-ray. No other interval change. <Electronically signed by Sanket Muro > 09/07/20 1636
[2020-09-07 17:34] LABS: AMPHETAMINES LEVEL URINE NEGATIVE (NEGATIVE); BARBITURATES URINE NEGATIVE (NEGATIVE); BENZODIAZEPINES URINE NEGATIVE (NEGATIVE); CANNABINOIDS URINE NEGATIVE (NEGATIVE); COCAINE METABOLITE URINE NEGATIVE (NEGATIVE); METHADONE URINE NEGATIVE (NEGATIVE); OPIATES URINE NEGATIVE (NEGATIVE); PHENCYCLIDINE URINE NEGATIVE (NEGATIVE)
[2020-09-07 18:24] LABS: HEMATOCRIT 28.9 % (36.0-47.0); HEMOGLOBIN 8.8 g/dl (12.0-15.5); MEAN CORPUSCULAR HEMOGLOBIN 28.8 pg (27.0-33.0); MEAN CORPUSCULAR HGB CONC 30.4 g/dl (32.0-36.5); MEAN CORPUSCULAR VOLUME 94.4 fl (80.0-96.0); PLATELET COUNT, AUTOMATED 227 10^3/uL (150-450); RED BLOOD COUNT 3.06 10^6/uL (4.00-5.40); WHITE BLOOD COUNT 22.8 10^3/uL (4.0-10.0)
[2020-09-07 18:33] LABS: LYMPHOCYTES 5 % (16-44); MONOCYTES 4 % (0-5); NEUTROPHILS 91 % (28-66)
[2020-09-07 18:35] LABS: DOHLE BODIES 1+
[2020-09-07 18:36] LABS: HYPERSEGMENTED POLYS 1+
[2020-09-07 18:38] LABS: ANISOCYTOSIS 4+; HYPOCHROMASIA 1+
[2020-09-07 18:39] LABS: POIKILOCYTOSIS 2+
[2020-09-07 18:42] LABS: TEAR DROP CELLS 1+
[2020-09-07 18:43] LABS: POLYCHROMASIA 1+
[2020-09-07 18:45] LABS: PLATELET ESTIMATE NORMAL (NORMAL)
[2020-09-07] MEDS ORDERED: cefTRIAXone SOD 2 GM in D5W MINI-BAG PLUS 50 ML IV ONE (18:45)
[2020-09-07] MEDS ORDERED: AZITHROMYCIN INJ 500 MG, VIAL MATE ADAPTER 1 EACH in D5W 250 ML IV ONE (18:45)
[2020-09-07 19:00] LABS: ACETAMINOPHEN LEVEL < 2.0 UG/ML (10.0-30.0); ALBUMIN 3.1 GM/DL (3.2-5.2); ALT/SGPT 16 U/L (12-78); BILIRUBIN,DIRECT 0.3 MG/DL (0.0-0.2); BILIRUBIN,TOTAL 0.8 MG/DL (0.2-1.0); BLOOD UREA NITROGEN 18 MG/DL (7-18); CALCIUM LEVEL 8.6 MG/DL (8.8-10.2); CARBON DIOXIDE LEVEL 28 MEQ/L (21-32); CHLORIDE LEVEL 99 MEQ/L (98-107); ETHYL ALCOHOL (ETHANOL) < 0.003 % (0.000-0.010); GLOMERULAR FILTRATION RATE > 60.0 (>45); GLUCOSE, FASTING 100 MG/DL (70-100); POTASSIUM SERUM 3.5 MEQ/L (3.5-5.1); SALICYLATE LEVEL < 1.7 MG/DL (5.0-30.0); SODIUM LEVEL 137 MEQ/L (136-145); TOTAL PROTEIN 6.2 GM/DL (6.4-8.2)
[2020-09-07] MEDS ORDERED: METO1TAB32 PO (19:16)
[2020-09-07] MEDS ORDERED: ATOR1TAB21 PO (19:16)
[2020-09-07] MEDS ORDERED: LAMI1TAB8 PO (19:16)
[2020-09-07] MEDS ORDERED: GABA-1171 PO ×2 (19:21)
[2020-09-07] MEDS ORDERED: PROAAER10 INH (19:22)
[2020-09-07] MEDS ORDERED: MOM 30ML SUSPENSION UDC PO PRN (19:45)
[2020-09-07] MEDS ORDERED: ACETAMINOPHEN TAB 650MG DOSE (2X325MG) PO PRN (19:45)
--- NOTE | 2020-09-07 20:31 | HPEPDOC ---
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 Son tells me he works as a drive away driver and doesn't see her often and doesn't know the last time she was normal self. Says that his brother visited her home today and she was off and not acting herself and today he visited her and noticed the same thing and so he called EMS. I am unable to obtain any history from the patient as she is not cooperative she is restless and agitated trying to get out of bed and then got out of hold off all her leads off her chest and was yelling and screaming at staff. In the ED she was found to have an elevated white count but no fevers chest x- ray showing possible consolidation. PAST MEDICAL HISTORY: From chart review. Unreliable and possibly incomplete. Lung cancer Anxiety and depression High cholesterol TIA per chart December 2019 on airplane PAST SURGICAL HISTORY: From chart review Surgery on her right great toe Tubal ligation Partial hysterectomy Appendectomy EGD Thoracotomy Chem point SOCIAL HISTORY: From chart review She was a former smoker quit in 2013 From chart review doesn't drink ETOH. FAMILY HISTORY: From chart review: Father diagnosed with diabetes and lung cancer ALLERGIES: Severe sulfa allergy possible anaphylaxis per chart review of oncologist note from 08/30/2020. Updated chart. REVIEW OF SYSTEMS: I am unable to obtain a review of systems from the patient due to her mental status and behavior. HOME MEDICATIONS: Please see below. PHYSICAL EXAMINATION: Patient was yelling at me not to examine her in with swelling her arm at me whenever I approached her. She attempted to get out of bed and walk around and ripped off her leads off her chest. Constitutional: Awake, trying to get out of bed Respiratory: I was able to briefly listen to her lungs while she was yelling at me and I could not appreciate any crackles or wheezing. My exam was limited. Musculoskeletal: No LE edema. Neurologic: unable to assess Mental Status: Patient is confused and agitated and combative with ED staff. Very difficult to redirect. LABORATORY DATA: See below. IMAGING: AP chest 08/15/2020, 07/27/2020; CT 06/18/2020 IMPRESSION: 1. Enlarging right paratracheal mass since the CT in June, probably slightly larger than the chest x-ray last month. 2. Postoperative changes left hemithorax with volume loss, infiltrate and effusion suggested at the left base and conglomerate mass/scar at the left hilum with surgical clips and retraction of the hilum upward. Volume loss as well as lateral pleural thickening or fluid in the mid chest. Increase in the size and density of the opacity at the perihilar suprahilar region on the left compared to the previous x-ray. No other interval change. MRI brain 08/12/2020, CT with and without contrast 07/04/2020 IMPRESSION: 1. Ventriculomegaly and atrophy greater than expected for age but in proportion. Cerebral and cerebellar atrophy noted and extensive white matter heterogeneous low-density changes throughout. Most of this is likely chronic small vessel ischemic change but some post treatment change could be present. 2. Areas of more of low density in the posterior left temporoparietal region and elsewhere on the previous study show less low-density today suggesting lessening of edema at sites of metastatic disease. 3. No new findings, acute infarct, intra or extra-axial hemorrhage, destructive bone lesion nor other acute finding. MICROBIOLOGY: Please see below. 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 In the ED patient was very agitated and combative with staff. Refused to be examined or for EKG to be done. There is suspicion of underlying pneumonia as cause of her behavior versus progression of her metastatic brain cancer. Patient will be admitted to medical unit for further management. # AMS with agitation and restlessness: Unknown timeline of how long patient has been showing altered mental status. Suspect 2-3 days. Cause currently unknown. Labs unrevealing so far. Could be relating to metastatic brain cancer or underly ing possible pneumonia, or other infection. Ammonia, TSH, HIV, RPR, b12, folate, Haldol IM for extreme agitation. Bedrest. Fall precautions. PT/OT eval. Consider psych consult. UDS negative. # Possible underlying pneumonia: Will place patient on ceftriaxone and doxycycline for now (cannot obtain EKG for QTC for azithromycin). IVFs. Fu BCx, UA. Lactate 1.5 initially. trend. Fu procalcitonin. I'm unsure patient has a true underlying pneumonia and this time as I'm unable to obtain a history and she is currently afebrile. WBC is elevated but she received Neulasta a few days ago. Chest x-ray reviewed questionable consolidation versus underlying lung cancer. # Metastatic lung cancer: Following up with oncology. Received Neulasta on September 04. White count is elevated unsure if related to underlying infection or Neulasta. # on Xarelto: I am unable to find out why patient is on Xarelto. Perhaps due to her hypercoagulable state with metastatic cancer. We are unable to obtain an EKG as patient is combative and keeps pulling off her leads off her chest. Unsure patient has a remote history of A. fib heart rate currently 109. Will keep patient on Xarelto. Obtain EKG with possible. Attempt to obtain outside medical records to see why patient is on Xarelto. # Tachycardia: 109. Could be related to her severe agitation and restlessness. Unable to obtain EKG at this time. Unsure if relating to underlying A fib. Will continue patient on metoprolol and place on xarelto for now until possible to obtain EKG. # Anemia: likely ACD. Monitor daily CBC. Fu PCP if stable. # COPD: Not in exacerbation. Continue inhalers as needed. Duonebs PRN. # Hx TIA: per records December 2019. Continue aspirin and statin. # Depression: hold psych meds for now. # On gabapentin: obtain A1c, perhaps diabetic with underlying peripheral neuropathy. Can hold for now. # On lasix: low dose 20mg daily. AM consider obtaining echo when possible. last echo 2012. Can continue lasix for now. # DVT prophylaxis: [place] [facility] [place] Vital Signs Vital Signs Date Time Temp Pulse Resp B/P (MAP) Pulse Ox O2 Delivery O2 Flow Rate FiO2 09/07/20 17:47 109 93 09/07/20 17:00 102/54 (70) 09/07/20 15:33 97.4 16 Room Air Laboratory Data Labs 24H Laboratory Tests 2 09/07/20 16:20: POC pH (Misc Panel) 7.502H, POC Base Excess (Misc Panel) 6.0H, POC Saturated Percent O2 (Misc) 99H, POC pO2 (Misc Panel) 105.0, POC pCO2 (Misc Panel) 37.7, POC HCO3 (Misc Panel) 29.5H, POC Total CO2 (Misc Panel) 31.0H 09/07/20 16:59: Urine Opiates Screen NEGATIVE, Urine Methadone Screen NEGATIVE, Urine Barbiturates Screen NEGATIVE, Urine Phencyclidine Screen NEGATIVE, Urine Amphet amines Screen NEGATIVE, Urine Benzodiazepines Screen NEGATIVE, Urine Cocaine Metabolite Screen NEGATIVE, Urine Cannabinoids Screen NEGATIVE 09/07/20 18:12: Immature Granulocyte % (Auto) , Neutrophils (%) (Auto) , Nucleated Red Blood Cells % (auto) 0.0, Neutrophils 91H, Lymphocytes (Manual) 5L, Monocytes (Manual) 4, Eosinophils (Manual) , Polychromasia 1+, Hypochromasia 1+, Poikilocytosis 2+, Anisocytosis 4+, Macrocytosis 1+, Tear Drop Cells 1+, Dohle Bodies 1+, Hypersegmented Polys 1+, Platelet Estimate NORMAL, Anion Gap 10, Glomerular Filtration Rate > 60.0, Lactic Acid Level 1.5, Calcium Level 8.6L, Total Bilirubin 0.8, Direct Bilirubin 0.3H, Aspartate Amino Transf (AST/SGOT) 46H, Alanine Aminotransferase (ALT/SGPT) 16, Alkaline Phosphatase 111, Total Protein 6.2L, Albumin 3.1L, Albumin/Globulin Ratio 1.0L, Thyroid Stimulating Hormone (TSH) 1.730, Salicylates Level < 1.7L, Acetaminophen Level < 2.0L, Ethyl Alcohol Level < 0.003 CBC/BMP Laboratory Tests 09/07/20 18:12 Microbiology Microbiology 09/07/20 Blood Culture, Received Pending 09/07/20 Respiratory Virus Panel (PCR) ([facility]) - Final, Complete 09/07/20 Blood Culture, Received Pending Home Medications Scheduled Aspirin (Aspirin) 81 Mg Tab.chew, 81 MG PO DAILY Atorvastatin Calcium (Atorvastatin Calcium) 20 Mg Tablet, 20 MG PO DAILY Cholecalciferol (Vitamin D3) (Weekly-D) 1,250 Mcg Capsule, 2,000 MCG PO DAILY Duloxetine Hcl (Duloxetine HCl) 30 Mg Capsule.dr, 30 MG PO DAILY takes with 60mg to =90mg Duloxetine Hcl (Cymbalta) 60 Mg Capsule.dr, 60 MG PO DAILY takes with 60mg to = 90mg Fexofenadine HCl (Fatou Allergy) 180 Mg Tablet, 180 MG PO DAILY Fluticasone/Umeclidin/Vilanter (Trelegy Ellipta 100-62.5-25) 1 Each Blst.w.dev, 1 PUFF INH DAILY Furosemide (Furosemide) 20 Mg Tablet, 1 TAB PO DAILY TAKE FOR WEIGHT GAIN OF 2 POUNDS OR MORE Gabapentin (Gabapentin) 100 Mg Capsule, 200 MG PO QAM Gabapentin (Gabapentin) 100 Mg Capsule, 300 MG PO QHS Lamotrigine (Lamictal) 150 Mg Tablet, 150 MG PO QPM Lidocaine/Prilocaine (Lidocaine-Prilocaine Cream) 2.5%/2.5% Cream..g., 1 APPLIC TOP ASDIRECTED Apply dime size to port area. Do not rub in, cover with saran wrap to protect clothing. Lisinopril (Lisinopril) 2.5 Mg Tablet, 2.5 MG PO DAILY Metoprolol Succinate (Metoprolol Succinate) 25 Mg Tab.er.24h, 25 MG PO DAILY Montelukast Sodium (Singulair) 10 Mg Tab, 10 MG PO QHS Mv-Min/Vit C/Glut/Lysine/Hc124 (Airborne Tablet Chewable) 1 Each Tab.chew, 1 CHW PO DAILY Potassium Chloride (Potassium Chloride) 20 Meq Tab.er.prt, 1 TAB PO DAILY Rivaroxaban (Xarelto) 10 Mg Tablet, 1 TAB PO DAILY Scheduled PRN Albuterol Sulf (Albuterol Sulfate) 2.5 Mg/3 Ml Vial.neb, 1 NEB INH PRN PRN for WHEEZING Albuterol Sulfate (Proair Hfa) 8.5 Gm Hfa.aer.ad, 2 PUFF INH Q4H PRN for SHORTNESS OF BREATH Guaifenesin/Pseudoephedrne HCl (Mucinex D ER 1,200-120 mg Tab) 1 Each Tab.er.12h, 1 TAB PO BID PRN for CONGESTION Allergies Coded Allergies: Sulfa (Sulfonamide Antibiotics) (Verified Adverse Reaction, Mild, nausea, 08/15/20) ABILIO HURT MD Sep 07, 2020 20:30
[2020-09-07] MEDS: MONTELUKAST 10 MG TAB PO SCH (21:00)
[2020-09-07] MEDS ORDERED: IPRATROPIUM 0.5MG/ALBUTEROL 2.5MG INH SOL UD 3ML (DUONEB) NEB PRN (21:15)
[2020-09-07] MEDS: HALOPERIDOL 5MG/ML VIAL (J1630 PER 1) IM PRN (21:27)
[2020-09-07] MEDS: NS 1,000 ML IV SCH (21:31)
[2020-09-07 21:54] LABS: HEMOGLOBIN A1c 5.2 %
[2020-09-07] MEDS: DOXYCYCLINE HYCLATE 100 MG in D5W MINI-BAG PLUS 100 ML IV SCH (23:32)
[2020-09-08] VITALS: BP 142/68
[2020-09-08 04:00] VITALS: BP 129/66
[2020-09-08] MEDS: HALOPERIDOL 5MG/ML VIAL (J1630 PER 1) IM PRN (07:10)
[2020-09-08 08:00] VITALS: BP 109/59
--- NOTE | 2020-09-08 08:36 | REP ---
INDICATION: Possible PNA. COMPARISON: 09/07/2020, 08/15/2020 TECHNIQUE: Portable supine images were obtained. FINDINGS: Indwelling right jugular port catheter again seen tip the near the right atrium. Mass-like opacity left hilar perihilar region with some volume loss in the left hemithorax and from lung resection. Lateral pleural a thickness increased on this supine film compared to the upright film yesterday. I suspect this is pleural effusion in different configuration with changed position. Underlying fibrosis and COPD. Some patchy increased density in the retrocardiac left lower lobe may reflect linear scar, atelectasis and/or infiltrate with the effects of superimposed effusion. No visible right lung infiltrate. There are surgical clips in the left neck base. No other changes. IMPRESSION: 1. Supine positioning with the left pleural effusion tracking along the lateral chest wall. Postoperative changes and large masslike opacity in the left hilar and perihilar region as before. The right paratracheal mass effect is visible with smaller appearance due to supine versus upright projection. 2. Some patchy and streaky densities in the retrocardiac left lower lobe may be fibrosis, some atelectasis or patchy infiltrate. The postoperative changes and volume loss with some linear fibrotic changes are again noted in the left hemithorax. <Electronically signed by Sanket Muro > 09/08/20 [id number]
[2020-09-08] MEDS ORDERED: FUROSEMIDE 20 MG TAB PO SCH (09:00)
[2020-09-08] MEDS ORDERED: LISINOPRIL *2.5 MG* TAB PO SCH (09:00)
[2020-09-08] MEDS: RIVAROXABAN 10 MG TAB (XARELTO) PO SCH (09:00)
[2020-09-08 09:11] LABS: HEMOGLOBIN 8.1 g/dl (12.0-15.5); MEAN CORPUSCULAR HEMOGLOBIN 29.5 pg (27.0-33.0); MEAN CORPUSCULAR HGB CONC 31.2 g/dl (32.0-36.5); MEAN CORPUSCULAR VOLUME 94.5 fl (80.0-96.0); PLATELET COUNT, AUTOMATED 185 10^3/uL (150-450); RED BLOOD COUNT 2.75 10^6/uL (4.00-5.40); WHITE BLOOD COUNT 13.8 10^3/uL (4.0-10.0)
[2020-09-08 09:39] LABS: BLOOD UREA NITROGEN 18 MG/DL (7-18); CALCIUM LEVEL 8.3 MG/DL (8.8-10.2); CARBON DIOXIDE LEVEL 29 MEQ/L (21-32); CHLORIDE LEVEL 101 MEQ/L (98-107); CREATININE FOR GFR 0.45 MG/DL (0.55-1.30); GLOMERULAR FILTRATION RATE > 60.0 (>45); GLUCOSE, FASTING 92 MG/DL (70-100); POTASSIUM SERUM 3.6 MEQ/L (3.5-5.1); SODIUM LEVEL 138 MEQ/L (136-145)
[2020-09-08 09:40] LABS: ALBUMIN 2.9 GM/DL (3.2-5.2); ALT/SGPT 14 U/L (12-78); BILIRUBIN,TOTAL 0.6 MG/DL (0.2-1.0); TOTAL PROTEIN 5.8 GM/DL (6.4-8.2)
[2020-09-08] MEDS: ATORVASTATIN 20 MG TAB PO SCH (09:59)
[2020-09-08] MEDS: ASPIRIN 81 MG CHEW TABLET PO SCH (09:59)
[2020-09-08] MEDS: DOXYCYCLINE HYCLATE 100 MG in D5W MINI-BAG PLUS 100 ML IV SCH (10:00)
[2020-09-08] MEDS: NS 1,000 ML IV SCH (10:00)
[2020-09-08] MEDS: METOPROLOL SUCC *XL* 25MG TAB (TopROL *XL*) PO SCH (10:00)
[2020-09-08] MEDS ORDERED: dexameTHASONE 20MG/5ML VIAL (J1100 PER 1MG) IV ONE (11:15)
[2020-09-08] MEDS ORDERED: VANCOMYCIN HCL 1,000 MG, VIAL MATE ADAPTER 1 EACH in D5W 250 ML IV SCH (11:45)
[2020-09-08 12:00] VITALS: BP 137/63
--- NOTE | 2020-09-08 12:25 | IPNPDOC ---
Text Note Date of Service The patient was seen on 09/08/20. NOTE Subjective: Patient more cooperative today, Answers yes and no to questions. Preferring to lay on her left side with head covered in blanket. Spoke with daughter who is a Field Ring Assembler in [place]. She reports that on Wednesday she was not feeling well as she was having orthopnea and was having increased swelling of her left side of the face and left side of neck. She left she was building up with fluids. She was started on lasix and lisinopril by oncology on 09/05/20 for fluid overload after chemo. She cancelled the Radiation oncology appointment on Wednesday09/06/20. Her nephews also noted the increased swelling of the face. PHYSICAL EXAMINATION: Vitals: As below GEN: seems calmer than yesterday though still does not want to be woken up though she did allow physical exam. Answers to all questions is no. NEck : mild fullness of the left side, left sided facial swelling ? venous obstruction. Chest : diminished at the left base No ronchi or wheezing. CVS: normal S1, S2 no rub/ mumur or gallop Abdomen: soft nontender, bowel sounds normal. Extremities: No edema. LABORATORY DATA: See below. IMAGING: CT Chest 06/18/2020 There are recurrent masses at the thoracic inlet on the right and in the mediastinal right paratracheal area, as described. The superior most extent of the right thoracic inlet mass is excluded from the study and a CT of the neck might be considered for further evaluation of the superior extent of this mass. There are two peribronchial nodules in the right lung, unchanged from 04/02/20. There are chronic fibrotic changes. There is a chronic small pleural effusion onthe left, unchanged. Chronic pericardial effusion versus pericardial thickening is unchanged. CT with and without contrast 07/04/2020 IMPRESSION: 1. Ventriculomegaly and atrophy greater than expected for age but in proportion. Cerebral and cerebellar atrophy noted and extensive white matter heterogeneous low-density changes throughout. Most of this is likely chronic small vessel ischemic change but some post treatment change could be present. 2. Areas of more of low density in the posterior left temporoparietal region and elsewhere on the previous study show less low-density today suggesting lessening of edema at sites of metastatic disease. 3. No new findings, acute infarct, intra or extra-axial hemorrhage, destructive bone lesion nor other acute finding. 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 Son works as a wrecker driver and doesn't see her often and doesn't know the last time she was normal self. Says that his brother visited her home ont eh day prior to admission and she was off and not acting herself and then he visited also her and noticed the same thing and so he called EMS. Review of chart shows that she had called radiation oncology on 09/06/20 as she was having a fever and was orthopneic. She also reported that she felt her fluid was again building up on the left. She was addiced to come to ED but she refused. Acute Metabolic encephalopathy Unknown timeline of how long patient has been showing altered mental status. Most likely infection. Could be related to worsening metastatic brain lesions also. She received stereotactic brain radiation 2 weeks ago. Ammonia and TSH normal, HIV and RPR in progress. Haldol Im prn Will get EEG also. Possible pneumonia: I'm unsure patient has a true underlying pneumonia and this time. WBC is elevated but she received Neulasta a few days ago. Chest x-ray reviewed questionable consolidation versus underlying lung cancer. will give Zosyn and vanco blood cultures and cultures from port were sent. 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 on chemo complicated. last chemo on Sep 04. Also received stereotactic brain radiation in aug 2020. CT with some edema though better than before will give dexamethasone. On xarelto because of chronic pulmonary arterial compression at the thoracic outlet and high risk for developing clots Anemia Anemia of chronic disease. COPD Postoperative status post talc pleurodesis and multiple wedge resections of emphysematous blebs. Continue inhalers as needed. Duonebs PRN. ANNETTA Post cycle 1 chemo this year in December 2019 she had a CVA and received TPA with resolution of her symptoms. Continue aspirin and statin. Depression home meds held. HLD statin Hypertension metoprolol, will stop lisinopril. Chronic Left pleural effusion and chronic left sided chest pain due to rib mets to L 5,6 7 ribs on gabapentin VS,Fishbone, I+O VS, Fishbone, I+O Laboratory Tests 09/07/20 18:12 09/08/20 09:00 Vital Signs Date Time Temp Pulse Resp B/P (MAP) Pulse Ox O2 Delivery O2 Flow Rate FiO2 09/08/20 08:00 98.7 104 17 109/59 (76) 95 Room Air I&O- Last 24 Hours up to 6 AM 09/08/20 06:00 Intake Total 350 ml Output Total 0 ml Balance 350 ml CHERYL DUNN MD Sep 08, 2020 11:42
[2020-09-08] MEDS: PIPERACILLIN/TAZOBACTAM SOD 3.375 GM in D5W MINI-BAG PLUS 50 ML IV SCH ×2 (12:30→18:31)
[2020-09-08] MEDS ORDERED: VANCOMYCIN HCL 1,000 MG, VIAL MATE ADAPTER 1 EACH in D5W 250 ML IV ONE (13:00)
[2020-09-08] MEDS ORDERED: VANCOMYCIN HCL 750 MG, VIAL MATE ADAPTER 1 EACH in D5W 250 ML IV ONE (14:00)
[2020-09-08] MEDS ORDERED: SODIUM CHLORIDE 0.9% INJ 10 ML SYR IV PRN (15:15)
[2020-09-08 16:00] VITALS: BP_SYST 124
[2020-09-08 20:00] VITALS: BP 110/60
[2020-09-08] MEDS ORDERED: cefTRIAXone SOD 1 GM in D5W MINI-BAG PLUS 50 ML IV SCH (20:00)
[2020-09-08] MEDS: VANCOMYCIN HCL 750 MG, VIAL MATE ADAPTER 1 EACH in D5W 250 ML IV SCH (21:59)
[2020-09-08] MEDS: MONTELUKAST 10 MG TAB PO SCH (21:59)
[2020-09-08] MEDS: dexameTHASONE 4 MG/ML 1ML VIAL (J1100 PER 1MG) IV SCH (21:59)
[2020-09-08] MEDS ORDERED: VANCOMYCIN HCL 500 MG in D5W MINI-BAG PLUS 100 ML IV SCH (23:00)
[2020-09-09] VITALS: BP 132/74
[2020-09-09] MEDS: ALBUTEROL 90 MCG/ACT 8GM HFA INHALER INH PRN (00:49)
[2020-09-09] MEDS: PIPERACILLIN/TAZOBACTAM SOD 3.375 GM in D5W MINI-BAG PLUS 50 ML IV SCH ×4 (01:46→18:24)
[2020-09-09] MEDS: dexameTHASONE 4 MG/ML 1ML VIAL (J1100 PER 1MG) IV SCH ×3 (03:13→20:48)
[2020-09-09] MEDS: VANCOMYCIN HCL 750 MG, VIAL MATE ADAPTER 1 EACH in D5W 250 ML IV SCH (07:49)
[2020-09-09 08:00] VITALS: BP 137/65
[2020-09-09 08:27] LABS: HEMOGLOBIN 8.8 g/dl (12.0-15.5); MEAN CORPUSCULAR HEMOGLOBIN 28.9 pg (27.0-33.0); MEAN CORPUSCULAR HGB CONC 30.3 g/dl (32.0-36.5); MEAN CORPUSCULAR VOLUME 95.4 fl (80.0-96.0); PLATELET COUNT, AUTOMATED 146 10^3/uL (150-450); RED BLOOD COUNT 3.04 10^6/uL (4.00-5.40); WHITE BLOOD COUNT 4.3 10^3/uL (4.0-10.0)
[2020-09-09 08:48] LABS: BLOOD UREA NITROGEN 18 MG/DL (7-18); CARBON DIOXIDE LEVEL 29 MEQ/L (21-32); CHLORIDE LEVEL 103 MEQ/L (98-107); CREATININE FOR GFR 0.72 MG/DL (0.55-1.30); GLOMERULAR FILTRATION RATE > 60.0 (>45); GLUCOSE, FASTING 107 MG/DL (70-100); POTASSIUM SERUM 3.6 MEQ/L (3.5-5.1); SODIUM LEVEL 137 MEQ/L (136-145)
[2020-09-09] MEDS: ATORVASTATIN 20 MG TAB PO SCH (09:08)
[2020-09-09] MEDS: ASPIRIN 81 MG CHEW TABLET PO SCH (09:08)
[2020-09-09] MEDS: RIVAROXABAN 10 MG TAB (XARELTO) PO SCH (09:08)
[2020-09-09] MEDS: METOPROLOL SUCC *XL* 25MG TAB (TopROL *XL*) PO SCH (09:09)
[2020-09-09] MEDS: SODIUM CHLORIDE 0.9% INJ 10 ML SYR IV SCH (09:09)
[2020-09-09 09:14] LABS: LYMPHOCYTES 11 % (16-44); MONOCYTES 4 % (0-5); NEUTROPHILS 83 % (28-66)
[2020-09-09 09:15] LABS: ANISOCYTOSIS 2+; HYPOCHROMASIA 2+; PLATELET ESTIMATE NORMAL (NORMAL)
[2020-09-09 09:16] LABS: DOHLE BODIES 1+; POIKILOCYTOSIS 1+
[2020-09-09 10:29] LABS: HIV 1&2 SCREEN CENTAUR NEGATIVE (NEGATIVE)
[2020-09-09 11:01] LABS: VITAMIN B12 LEVEL 542 PG/ML (247-911)
[2020-09-09 11:04] LABS: FOLATE 19.3 NG/ML (>5.4)
--- NOTE | 2020-09-09 12:06 | IPNPDOC ---
Text Note Date of Service The patient was seen on 09/09/20. NOTE Subjective: Patient is completely awake, alert and oriented today, sitting up in chair having breakfast. She reports that her face was swollen on Wednesday and she was having some difficulty breathing but then does not remember what happened. The next day her family members found her to be confused and brought to the ED. She spoke with her sister on wednesday who is a supervisor beater room. She could not remember the whole day yesterday. PHYSICAL EXAMINATION: Vitals: As below GEN: seems calmer than yesterday though still does not want to be woken up though she did allow physical exam. Answers to all questions is no. NEck : mild fullness of the left side, left sided facial swelling ? venous obstruction. Chest : diminished at the left base No ronchi or wheezing. CVS: normal S1, S2 no rub/ mumur or gallop Abdomen: soft nontender, bowel sounds normal. Extremities: No edema. LABORATORY DATA: See below. IMAGING: CT Chest 06/18/2020 There are recurrent masses at the thoracic inlet on the right and in the mediastinal right paratracheal area, as described. The superior most extent of the right thoracic inlet mass is excluded from the study and a CT of the neck might be considered for further evaluation of the superior extent of this mass. There are two peribronchial nodules in the right lung, unchanged from 04/02/20. There are chronic fibrotic changes. There is a chronic small pleural effusion on the left, unchanged. Chronic pericardial effusion versus pericardial thickening is unchanged. CT with and without contrast 07/04/2020 IMPRESSION: 1. Ventriculomegaly and atrophy greater than expected for age but in proportion. Cerebral and cerebellar atrophy noted and extensive white matter heterogeneous low-density changes throughout. Most of this is likely chronic small vessel ischemic change but some post treatment change could be present. 2. Areas of more of low density in the posterior left temporoparietal region and elsewhere on the previous study show less low-density today suggesting lessening of edema at sites of metastatic disease. 3. No new findings, acute infarct, intra or extra-axial hemorrhage, destructive bone lesion nor other acute finding. 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 Son works as a train driver and doesn't see her often and doesn't know the last time she was normal self. Says that his brother visited her home ont eh day prior to admission and she was off and not acting herself and then he visited also her and noticed the same thing and so he called EMS. Review of chart shows that she had called radiation oncology on 09/06/20 as she was having a fever and was orthopneic. She also reported that she felt her fluid was again building up on the left. She was addiced to come to ED but she refused. Acute Metabolic encephalopathy Unknown timeline of how long patient has been showing altered mental status probably 1-2 days Most likely infection. Could be related to worsening metastatic brain lesions also. She received stereotactic brain radiation 2 weeks ago. Ammonia and TSH normal Will get EEG also could have had an unwitnessed seizure and was post ictal. Possible pneumonia: I'm unsure patient has a true underlying pneumonia and this time. WBC is elevated but she received Neulasta a few days ago. Chest x-ray reviewed questionable consolidation versus underlying lung cancer. Zosyn blood cultures and cultures from port were sent negative till date. 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 on chemo complicated. last chemo on Sep 04. Also received stereotactic brain radiation in aug 2020. CT with some edema though better than before will give dexamethasone. On xarelto because of chronic pulmonary arterial compression at the thoracic outlet and high risk for developing clots Anemia Anemia of chronic disease. COPD Postoperative status post talc pleurodesis and multiple wedge resections of emphysematous blebs. Continue inhalers as needed. Duonebs PRN. ANNETTA Post cycle 1 chemo this year in December 2019 she had a CVA and received TPA with resolution of her symptoms. Continue aspirin and statin. Depression home meds held. HLD statin Hypertension metoprolol, will stop lisinopril. Chronic Left pleural effusion and chronic left sided chest pain due to rib mets to L 5,6 7 ribs on gabapentin VS,Fishbone, I+O VS, Fishbone, I+O Laboratory Tests 09/09/20 08:00 Vital Signs Date Time Temp Pulse Resp B/P (MAP) Pulse Ox O2 Delivery O2 Flow Rate FiO2 09/09/20 09:09 93 137/65 09/09/20 08:00 97.6 17 93 Nasal Cannula 1.0 I&O- Last 24 Hours up to 6 AM 09/09/20 05:59 Intake Total 1785 ml Output Total 2350 ml Balance -565 ml CHERYL DUNN MD Sep 09, 2020 12:06
[2020-09-09 18:00] VITALS: BP 128/68
[2020-09-09 20:00] VITALS: BP 131/61
[2020-09-09] MEDS: MONTELUKAST 10 MG TAB PO SCH (20:48)
[2020-09-10] MEDS: PIPERACILLIN/TAZOBACTAM SOD 3.375 GM in D5W MINI-BAG PLUS 50 ML IV SCH ×2 (00:09→05:17)
[2020-09-10] MEDS: ALBUTEROL 90 MCG/ACT 8GM HFA INHALER INH PRN (01:57)
[2020-09-10 04:00] VITALS: BP 148/68
[2020-09-10] MEDS: dexameTHASONE 4 MG/ML 1ML VIAL (J1100 PER 1MG) IV SCH (04:20)
[2020-09-10 07:04] LABS: HEMATOCRIT 26.3 % (36.0-47.0); MEAN CORPUSCULAR HGB CONC 30.4 g/dl (32.0-36.5); MEAN CORPUSCULAR VOLUME 95.3 fl (80.0-96.0); PLATELET COUNT, AUTOMATED 101 10^3/uL (150-450); RED BLOOD COUNT 2.76 10^6/uL (4.00-5.40); WHITE BLOOD COUNT 1.5 10^3/uL (4.0-10.0)
[2020-09-10 07:28] LABS: BLOOD UREA NITROGEN 27 MG/DL (7-18); CALCIUM LEVEL 8.7 MG/DL (8.8-10.2); CARBON DIOXIDE LEVEL 27 MEQ/L (21-32); CHLORIDE LEVEL 104 MEQ/L (98-107); CREATININE FOR GFR 0.67 MG/DL (0.55-1.30); GLOMERULAR FILTRATION RATE > 60.0 (>45); GLUCOSE, FASTING 111 MG/DL (70-100); POTASSIUM SERUM 3.4 MEQ/L (3.5-5.1); SODIUM LEVEL 138 MEQ/L (136-145)
[2020-09-10] MEDS ORDERED: POTASSIUM CHLORIDE 10 MEQ SR TABLET PO ONE (07:45)
[2020-09-10 07:57] LABS: ANISOCYTOSIS 1+; ATYPICAL LYMPH 1 % (0-5); LYMPHOCYTES 31 % (16-44); MICROCYTOSIS 1+; MONOCYTES 4 % (0-5); MYELOCYTES 3 % (0-0); NEUTROPHILS 56 % (28-66); PLATELET ESTIMATE DECREASED (NORMAL)
[2020-09-10 07:58] LABS: HYPOCHROMASIA 1+; TOXIC GRANULATION 1+
[2020-09-10 08:00] VITALS: BP 146/76
[2020-09-10] MEDS ORDERED: ISOVUE-370 76% 100ML VIAL As Ordered ONE (08:48)
--- NOTE | 2020-09-10 09:37 | REPVR ---
PROCEDURE INFORMATION: Exam: CT Neck With Contrast Exam date and time: 09/10/2020 9:19 AM Age: 60 years old Clinical indication: Mass, lump, or swelling in neck; Additional info: Follow up on lung cancer, / svc obstruction/ mass in neck TECHNIQUE: Imaging protocol: Computed tomography images of the neck with intravenous contrast. Radiation optimization: All CT scans at this facility use at least one of these dose optimization techniques: automated exposure control; mA and/or kV adjustment per patient size (includes targeted exams where dose is matched to clinical indication); or iterative reconstruction. Contrast material: ISOVUE 370; Contrast volume: 75 ml; Contrast route: INTRAVENOUS (IV); COMPARISON: CT Chest 06/18/2020 FINDINGS: Nasopharynx: Unremarkable. Oropharynx: Unremarkable. No significant tonsillar enlargement. Hypopharynx: Unremarkable. Larynx: Unremarkable. Normal epiglottis. Retropharyngeal space: Unremarkable. Submandibular/Parotid glands: Normal. Glands are normal in size. Thyroid: Normal. No enlarged or calcified nodules. Lymph nodes: Unremarkable. No lymphadenopathy. Trachea: Visualized trachea is unremarkable. Lungs: There is biapical emphysema, left significantly greater than right, with left-sided pleural thickening. Bones/joints: There is degenerative disc disease and spondylosis. No acute fracture. Soft tissues: There is a large right lower IJ mass measuring up to 5.3 x 4.3 x 5.7 cm. This appears to of increased in size as compared to preceding CT chest examination from 06/16/2020, at which time it measured 4.6 x 2.6 cm, with the superior most portion of the mass excluded from that examination. There is exerts mass effect upon the internal jugular vein, which is displaced anteriorly and may be occluded at the level of the thoracic inlet. IMPRESSION: Interval increase in size of large right lower IJ neck mass, with displacement of the internal jugular vein and possible focal compression/occlusion at the level of the thoracic inlet. Electronically signed by: Felicia Shannon On 09/10/2020 09:37:17 AM
[2020-09-10] MEDS: ASPIRIN 81 MG CHEW TABLET PO SCH (09:47)
[2020-09-10] MEDS: RIVAROXABAN 10 MG TAB (XARELTO) PO SCH (09:47)
[2020-09-10 09:48] VITALS: BP 146/76
[2020-09-10] MEDS: SODIUM CHLORIDE 0.9% INJ 10 ML SYR IV SCH (09:48)
[2020-09-10] MEDS: METOPROLOL SUCC *XL* 25MG TAB (TopROL *XL*) PO SCH (09:48)
[2020-09-10] MEDS: ATORVASTATIN 20 MG TAB PO SCH (09:48)
--- NOTE | 2020-09-10 09:52 | REP ---
INDICATION: follow up on lung cancer, / SVC obstruction. COMPARISON: Portable chest 09/08/2020, 09/07/2020; CT 06/18/2020 TECHNIQUE: Bolus 100 mL Isovue 370 scanning through the chest with coronal and sagittal reconstructions. FINDINGS: Study and shows a large mass at the right thoracic inlet and supraclavicular region. This displaces the trachea to the left of midline further than on the previous study. It abuts and compresses the right jugular vein, displacing it anteriorly. Its maximum measurements are 6.5 x 5.6 x 4.3 cm. Was about 5.4 cm on the previous study. It extends laterally to abut the posterior margin of the clavicle and the anterior margin of the subclavian vein and artery. There is a port catheter in the anterior upper chest via the jugular route seen passing through a collapsed jugular vein into the upper SVC. The right paratracheal mass has also enlarged measuring 4.9 x 4.7 x 4.7 cm. It compresses and largely occludes the SVC with the catheter passing through the SVC to adelita its location. The mass may be potentially invading the SVC as rim of contrast from the left brachiocephalic vein is seen extending inferiorly. This mass extends down to abut the right hilum. Is a 12 mm node or nodule at the right hilum on image 59. The peribronchial nodule on image 46 on the previous study is smaller on today's image 62 now about 7 mm a was 12. The right middle lobe nodule lateral segment on image 73 is few mm smaller than the previous study there curvilinear fibrotic changes in the right lung I do not see pleural effusion. Some dependent atelectasis in the deep sulcus. Left lung shows volume loss with chronic opacity with curvilinear scarring in the perihilar region and left upper lobe lung zone. Surgical clips from prior thoracotomy and lobectomy present. Small amounts of loculated pleural fluid anteriorly mid upper lung zone again noted. Bronchiectatic changes and residual fibrotic lung at that hilum is again seen. The left mainstem lower lobe bronchi are envelopment soft tissue and/or tumor as before. There is no pneumothorax. Small pleural effusion seen in the lower chest. Most of this is unchanged. The heart is not enlarged left atrial prominence is mild there is some mild pericardial thickening. Fluid seen in the superior mediastinum. The main right and left pulmonary arteries in the mediastinum are without filling defect. The aorta is without aneurysm or dissection. There is no axillary or supraclavicular adenopathy. Adrenal nodules are unchanged. Upper pole of the left kidney shows some cysts. The right was unremarkable liver has a few small low-density foci less than a cm and suggestive of cysts, stable. That portion of gallbladder and pancreas included were unremarkable. Spleen unremarkable. No abdominal ascites. Bone windows show no interval change with some endplate sclerosis of upper thoracic vertebral bodies. Sternum and manubrium, clavicles, scapulae and humeral heads are also unchanged. Right ribs are unremarkable. The left ribs show lytic lesions posteriorly in the 5th and 6th ribs and a new fracture of the posterolateral left 7th rib, all as the changes from the June study. IMPRESSION: 1. Enlarging thoracic inlet mass involving the supraclavicular and right neck base region and compressing the right jugular vein displacing it anteriorly and the trachea to the left. It is now 6.5 cm transverse diameter, was 5.4 cm. 2. Right paratracheal mass is also larger and is compressing and or invading the SVC. Has maximum transverse diameter 4.9 cm 3. There are a few scattered nodules in the right lung and extensive postoperative changes with chronic density in the left perihilar and suprahilar region with volume loss, retraction and bronchiectatic change in this region. There are small loculated effusions anterior superiorly and layering posteriorly and inferiorly. 4. No visible pulmonary emboli. Bilateral adrenal nodules unchanged. 5. Lytic lesions posteriorly in the left 5th and 6th ribs with new fracture of posterolateral left 7th rib all changed from the previous study <Electronically signed by Sanket Muro > 09/10/20 [id number]
[2020-09-10] MEDS ORDERED: CEFD300CAP PO (13:37)
[2020-09-10] MEDS ORDERED: CEFDINIR 300 MG CAP (OMNICEF) PO ONE (13:45)
[2020-09-10] MEDS ORDERED: dexameTHASONE 4 MG/ML 1ML VIAL (J1100 PER 1MG) IV SCH (16:00)
--- NOTE | 2020-09-11 12:53 | EEG ---
DATE: 09/10/2020 DIAGNOSIS: Altered mental status. EEG# [id number] REFERRING PHYSICIAN: Sal Nicholson MD HISTORY: Patient is a 60-year-old woman with history of small cell lung cancer with metastasis to brain and ribs, who was brought to [facility] due to agitation, confusion, and altered mental status. This EEG was done to rule out epileptic potential. She is currently on aspirin, Xarelto, Lipitor, dexamethasone, Haldol. TECHNICAL DESCRIPTION: This digital EEG was recorded by 21-scalp, ear, and two EKG electrodes and was reviewed in bipolar and referential montages following reformatting in 10-20 international electrode placement system. INTERPRETATION: Patient was noted to be in awake and drowsy states during this EEG. Resting and awake background rhythm consisted of 8-9 Hz alpha activity measuring 15-40 microvolts in amplitude, which was symmetric and reactive to eye opening. Anteriorly low voltage and mixed frequency activity was noted. Attenuation of posterior dominant rhythm was seen during transition to drowsiness. No sleep was achieved. Hyperventilation could not be performed. Photic stimulation remained unremarkable. EKG revealed normal sinus rhythm. Intermittent left frontal and temporal theta slowing was noted. No epileptiform abnormalities were seen. No relevant clinical activity was noted. CONCLUSION: This EEG in awake and drowsy state is abnormal due to presence of mild left frontal and temporal theta activity consistent with focal cortical structure or functional abnormality. No epileptiform abnormalities were seen. Clinical correlation is recommended. MTDD
--- NOTE | 2020-09-11 15:03 | DS.PDOC ---
Discharge Summary General Date of Admission Sep 07, 2020 at 19:39 Date of Discharge 09/10/20 Discharge Summary PROCEDURES PERFORMED DURING STAY: [None]. DISCHARGE DIAGNOSES: Acute metabolic encephalopathy cause undetermined Possible pneumonia Metastatic Small cell lung cancer s/p chemoradiation in 2014 now with relapse this year in December 2019 s/p Stereotactic brain radiation. Mets to RIbs. Right Jugular venous compression by enlarging thoracic inlet and right supraclavicular mass. SVC obstruction and invasion by right paratracheal mass. COPD ANNETTA H/O CVA in January 2020 HLD Depression Anemia Hypertension COMPLICATIONS/CHIEF COMPLAINT: Altered Mental Status/ Pneumonia/ Small Cell Lung. HOSPITAL COURSE: Vitals: As below ASSESSMENT/PLAN: 60-year-old female with past medical history of Relapsed Small cell cancer metastases to the ribs and brain brought in by son for confusion and agitation at home for 1 day. Review of chart shows that she had called radiation oncology on 09/06/20 as she was having a fever and was orthopneic and had a swelling of face. She also reported that she felt her fluid was again building up. She was advised to come to ED but she refused. Acute Metabolic encephalopathy Unknown timeline of how long patient has been showing altered mental status probably 1-2 days Most likely infection. Could be related to worsening metastatic brain lesions also. She received stereotactic brain radiation 2 weeks ago. Ammonia and TSH normal EEG done no epileptiform focus. Possible pneumonia: I'm unsure patient has a true underlying pneumonia and this time. WBC is elevated but she received Neulasta a few days ago. Chest x-ray reviewed questionable consolidation versus underlying lung cancer. Zosyn to Cefdinir on discharge blood cultures and cultures from port were sent negative till date. 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 on chemo complicated. last chemo on Sep 04. Also received stereotactic brain radiation in aug 2020. CT with some edema though better than before will give dexamethasone. On xarelto because of chronic pulmonary arterial compression at the thoracic outlet and high risk for developing clots Anemia Anemia of chronic disease. COPD Postoperative status post talc pleurodesis and multiple wedge resections of emphysematous blebs. Continue inhalers as needed. Duonebs PRN. ANNETTA Post cycle 1 chemo this year in December 2019 she had a CVA and received TPA with resolution of her symptoms. Continue aspirin and statin. Depression home meds HLD statin Hypertension metoprolol, will stop lisinopril. 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 ALLERGIES: Please see below. PHYSICAL EXAMINATION ON DISCHARGE: VITAL SIGNS: Please see below. GEN: awake , alert oriented x 3 sitting up in chair in no distress. HEENT: Normocephalic, atraumatic, moist mucous membranes, anicteric eyes. Neck : right base of neck mass , trachea deviated to the left. Chest : bilateral vesicular breath sounds, No ronchi or wheezing. CVS: normal S1, S2 no rub/ murmur or gallop Abdomen: soft nontender, bowel sounds normal. Extremities: No edema. LABORATORY DATA: Please see below. IMAGING: CT chest with contrast on 09/10/20 1. Enlarging thoracic inlet mass involving the supraclavicular and right neck base region and compressing the right jugular vein displacing it anteriorly and the trachea to the left. It is now 6.5 cm transverse diameter, was 5.4 cm. 2. Right paratracheal mass is also larger and is compressing and or invading the SVC. Has maximum transverse diameter 4.9 cm 3. There are a few scattered nodules in the right lung and extensive postoperative changes with chronic density in the left perihilar and suprahilar region with volume loss, retraction and bronchiectatic change in this region. There are small loculated effusions anterior superiorly and layering posteriorly and inferiorly. 4. No visible pulmonary emboli. Bilateral adrenal nodules unchanged. 5. Lytic lesions posteriorly in the left 5th and 6th ribs with new fracture of posterolateral left 7th rib all changed from the previous study Neck CT with contrast: 09/10/20 Interval increase in size of large right lower IJ neck mass, with displacement of the internal jugular vein and possible focal compression/occlusion at the level of the thoracic inlet EEG: This EEG in awake and drowsy state is abnormal due to presence of mild left frontal and temporal theta activity consistent with focal cortical structure or functional abnormality. No epileptiform abnormalities were seen. Clinical correlation is recommended. ACTIVITY: [As tolerated]. DIET: As tolerated DISPOSITION: 01 Home, Self-Care. DISCHARGE INSTRUCTIONS: Dr Jansen in 1 week DISCHARGE CONDITION: [Stable]. TIME SPENT ON DISCHARGE: 35 minutes. Vital Signs/I&Os Vital Signs Date Time Temp Pulse Resp B/P (MAP) Pulse Ox O2 Delivery O2 Flow Rate FiO2 09/10/20 09:48 99 146/76 09/10/20 08:00 97.8 18 99 Nasal Cannula 1.0 I&O- Last 24 Hours up to 6 AM 09/11/20 06:00 Intake Total 600 ml Output Total 200 ml Balance 400 ml Microbiology Microbiology 09/08/20 Blood Culture - Preliminary, Resulted No Growth after 72 hours. All specime... 09/07/20 Blood Culture - Preliminary, Resulted No Growth after 72 hours. All specime... 09/07/20 Respiratory Virus Panel (PCR) (BRIJESH) - Final, Complete 09/07/20 Blood Culture - Preliminary, Resulted No Growth after 72 hours. All specime... Discharge Medications Scheduled Aspirin (Aspirin) 81 Mg Tab.chew, 81 MG PO DAILY, (Reported) Atorvastatin Calcium (Atorvastatin Calcium) 20 Mg Tablet, 20 MG PO DAILY, (Reported) Cefdinir (Cefdinir) 300 Mg Capsule, 1 CAP PO BID Cholecalciferol (Vitamin D3) (Weekly-D) 1,250 Mcg Capsule, 2,000 MCG PO DAILY, (Reported) Duloxetine Hcl (Duloxetine HCl) 30 Mg Capsule.dr, 30 MG PO DAILY, (Reported) takes with 60mg to =90mg Duloxetine Hcl (Cymbalta) 60 Mg Capsule.dr, 60 MG PO DAILY, (Reported) takes with 60mg to = 90mg Fexofenadine HCl (Fatou Allergy) 180 Mg Tablet, 180 MG PO DAILY, (Reported) Fluticasone/Umeclidin/Vilanter (Trelegy Ellipta 100-62.5-25) 1 Each Blst.w.dev, 1 PUFF INH DAILY, (Reported) Furosemide (Furosemide) 20 Mg Tablet, 1 TAB PO DAILY TAKE FOR WEIGHT GAIN OF 2 POUNDS OR MORE Gabapentin (Gabapentin) 100 Mg Capsule, 200 MG PO QAM, (Reported) Gabapentin (Gabapentin) 100 Mg Capsule, 300 MG PO QHS, (Reported) Lamotrigine (Lamictal) 150 Mg Tablet, 150 MG PO QPM, (Reported) Lidocaine/Prilocaine (Lidocaine-Prilocaine Cream) 2.5%/2.5% Cream..g., 1 APPLIC TOP ASDIRECTED, (Reported) Apply dime size to port area. Do not rub in, cover with saran wrap to protect clothing. Metoprolol Succinate (Metoprolol Succinate) 25 Mg Tab.er.24h, 25 MG PO DAILY, (Reported) Montelukast Sodium (Singulair) 10 Mg Tab, 10 MG PO QHS, (Reported) Mv-Min/Vit C/Glut/Lysine/Hc124 (Airborne Tablet Chewable) 1 Each Tab.chew, 1 CHW PO DAILY, (Reported) Potassium Chloride (Potassium Chloride) 20 Meq Tab.er.prt, 1 TAB PO DAILY Rivaroxaban (Xarelto) 10 Mg Tablet, 1 TAB PO DAILY Scheduled PRN Albuterol Sulf (Albuterol Sulfate) 2.5 Mg/3 Ml Vial.neb, 1 NEB INH PRN PRN for WHEEZING, (Reported) Albuterol Sulfate (Proair Hfa) 8.5 Gm Hfa.aer.ad, 2 PUFF INH Q4H PRN for SHORTNESS OF BREATH, (Reported) Guaifenesin/Pseudoephedrne HCl (Mucinex D ER 1,200-120 mg Tab) 1 Each Tab.er.12h, 1 TAB PO BID PRN for CONGESTION, (Reported) Allergies Coded Allergies: Sulfa (Sulfonamide Antibiotics) (Verified Allergy, Severe, ANAPHYLAXIS, 09/07/20) CHERYL DUNN MD Sep 11, 2020 15:03
[2020-09-12 13:07] LABS: BODY FLUID CULTURE Not indicated. (.); LEGIONELLA ANTIGEN URINE Negative (Negative); ORGANISM ID Not indicated. (.); SPECIMEN SOURCE Urine (.); URINE STREP PNEUMONIAE ANTIGEN Negative (Negative)
== END 2020-09-10 16:01 | disposition home or self-care (01) | DRG 52 ==
LOC: M ED 15:32 → M ED INP 19:39 → ENRESERV 20:40 → M PCU 20:59
PROVIDERS: ADMIT Family Medicine; ATTEND Internal Medicine Nephrology
DX: G93.41 Metabolic encephalopathy (principal); J18.9 Pneumonia, unspecified organism; C79.31 Secondary malignant neoplasm of brain; C79.51 Secondary malignant neoplasm of bone; C34.90 Malignant neoplasm of unspecified part of unspecified bronchus or lung; J44.0 Chronic obstructive pulmonary disease with (acute) lower respiratory infection; D64.9 Anemia, unspecified; I10 Essential (primary) hypertension; I87.1 Compression of vein; J44.9 Chronic obstructive pulmonary disease, unspecified; G47.33 Obstructive sleep apnea (adult) (pediatric); Z86.73 Personal history of transient ischemic attack (TIA), and cerebral infarction without residual deficits; F32.9 Major depressive disorder, single episode, unspecified; Z92.3 Personal history of irradiation; Z79.82 Long term (current) use of aspirin; Z79.899 Other long term (current) drug therapy; Z88.2 Allergy status to sulfonamides; F41.9 Anxiety disorder, unspecified

== ENCOUNTER → 2020-09-17 | Outpatient (CLI) | payer BC ==
[~2020-09-17] MED LIST changes: +ATOR1TAB21 PO; +CEFD300CAP PO; +DEXA2TA PO; +GABA-1171 PO; +LAMI1TAB8 PO; +METO1TAB32 PO
--- NOTE | 2020-09-18 10:42 | RADONC ---
RADIATION ONCOLOGY FOLLOWUP NOTE DATE: 09/17/2020 DIAGNOSIS: Metastatic small-cell lung cancer. ECOG performance status 3. FOLLOWUP NOTE: Ms. Zhao is a very pleasant 60-year-old white female who is well known to this department and has been treated by us and followed over the last 5-1/2 years for her small-cell lung carcinoma. Recently, the patient developed recurrent disease, including recurrent disease in the chest as well as recurrent brain metastasis. She is being treated in our medical oncology department by Dr. Jansen, utilizing cisplatin and [employer]-16. She was last seen by Dr. Jansen on September 02, and it was apparent that the mass in the right supraclavicular region did not show response to the treatment. He subsequently scheduled CT scans of the chest and neck. A CT scan of the chest and neck were undertaken on 09/10/2020, which revealed a large mass in the right thoracic inlet involving the supraclavicular and right neck base region, which was compressing the right jugular vein, displacing it anteriorly, and the trachea to the left. The lesion had increased in size and now measures 6.5 cm x 5.6 cm x 4.3 cm. On previous study of 06/18/2020, it was 5.4 cm in maximum dimension. In addition, there was a right paratracheal mass that was also enlarging and now measured 4.9 cm x 4.7 cm x 4.7 cm. It was compressing and largely occluding the superior vena cava, which had a catheter passing through it to adelita its location. Unfortunately, the mass was thought to also be potentially invading the superior vena cava, as the rim of contrast in the left brachiocephalic vein is seen extending inferiorly. The mass extends down and abuts the right hilum. In addition, there were several other lung nodules of metastatic disease. There were bilateral adrenal nodules, which remained unchanged. There were noted to be lytic lesions in the left 5th and 6th ribs with a new fracture of the posterolateral left 7th rib, all changed from previous study. Clearly, the patient's disease has progressed, even while on chemotherapy, and she is now presenting for discussion of possible further radiation therapy with the primary radiation oncologist, Dr. Richardson, here to the neck and mediastinum. Of note, the mediastinum has been previously treated with radiation. In addition, the patient just recently completed a course of stereotactic radiation for her recurrent brain metastases. Radiation to the brain was completed on 08/23/2020. ALLERGIES: The patient is allergic to SULFA DRUGS. REVIEW OF SYSTEMS: The patient's review of systems is positive for confusion and forgetfulness. She is presently in a wheelchair. Her sister reports that during a recent episode of pneumonia, she was largely not responsive to questioning for 3 days or so. She reports that it has cleared up. The patient reports that she is in a lot of pain over the fractured rib. She is not complaining of any shortness of breath. The patient denies fevers, chills, night sweats, diplopia, headaches, fevers. She is having no ear pain or visual problems. At this time she is having no significant shortness of breath. She is having some chest pain and specifically pain over her rib area where the metastatic site is. She is having no nausea, vomiting, diarrhea, or constipation. She is in a wheelchair, unable to ambulate on her own. Her energy levels are low, and overall she has been deteriorating, consistent with her progressive metastatic disease. ASSESSMENT: I had a very lengthy discussion with this patient, and we discussed all her issues and options. I have discussed hospice at length with her and her sister and made clear to them that this disease is not curable. Indeed, she has had small-cell lung carcinoma for well over 5 years at this point and has now widely metastatic recurrent disease, which is progressing on salvage chemotherapy. Overall, I think hospice would be a reasonable option for this very pleasant patient and her family. At this point, they do not wish to sign up for hospice, so we further discussed the palliative care option. They were responsive for that, and I have referred her to our palliative care facility for assistance in managing her overall issues with pain, weakness, and other problems. They can then progress to hospice as indicated if the family and the patient so desire. The patient's sister reports that her mental status has been improving over the last couple of days, but we discussed the possibility of some low-dose Decadron to see if that would help. The patient's sister reports that when she was hospitalized and placed on Decadron and antibiotics, she improved significantly. A CT scan of head was done, and there is some small amount of residual edema; therefore, a low dose of Decadron as a trial may not be unreasonable. I have sent in a prescription for 2 mg of Decadron to be used daily, and her sister, who is a physician, will monitor to see if there is any improvement. They have been made aware of the need to taper if the Decadron is on board for any period of time. In the meantime, the patient's brain CT shows stability and no evidence of new metastases. With regard to the patient's mediastinal mass in neck, I have personally reviewed this, and, indeed, in light of its compression of the superior vena cava and other vasculature, I do not think it unreasonable to offer radiation. I have been discussing the case with her primary radiation oncologist, Dr. Richardson, who is recommending a 3-week course of treatment, either twice a day or daily, for a dose of approximately 45 Gy. I think this is reasonable. I have asked the patient whether or not she wishes to undergo twice a day treatment or once daily treatment. In light of the fact that winter is coming and, indeed it is snowing now, considering her lack of mobility and the use of a wheelchair, the patient and her sister prefer conventional daily fractionation, and I have so ordered it. I have discussed the fact that the lung and mediastinum have been previously treated. This would clearly bring the doses to multiple organs above their overall tolerance level. I explained in detail the risks should she live long enough to develop significant lung problems or problems with other various structures within the radiated david. In light of her overall prognosis, however, I do think it is reasonable to obtain short-term palliation at this time, that the chance of developing a problem during her life expectancy is negligible. We did discuss the potential acute sequelae, including difficulty swallowing, esophagitis, and other issues. The patient is willing to undertake the treatment at this time, and I have therefore ordered simulation and initiation of treatment planning. Dr. Richardson will be returning tomorrow, and I will defer to him with regard to the final decision on fractionation, field sizes, and overall doses. The patient's main complaint is her rib metastasis, and I have ordered treatment of that as well. That may lead to some improvement in the quality of life and decrease the need for narcotics. MTDD
== END ==
LOC: M ONCR 13:09
PROVIDERS: ATTEND Radiology Radiation Oncology
DX: C34.02 Malignant neoplasm of left main bronchus (principal); C79.31 Secondary malignant neoplasm of brain; Z88.2 Allergy status to sulfonamides